=== PATIENT | female | born 1960 | race Caucasian/White ===

== ENCOUNTER → 2018-03-26 09:38 | Outpatient (CLI) | payer OTHER, SELFPAY ==
--- NOTE | 2018-03-26 | DI.MRI.S_ITS ---
PROCEDURE: MR LUMBAR SPINE WO CON INDICATIONS: Low back pain post fall 09-24-17 TECHNIQUE: Noncontrast sagittal T1 spin echo and T2 fast echo, sagittal STIR, axial T1 and T2 fast spin echo through the lumbar spine. In cases with scoliosis, additional coronal T2 fast spin echo may be performed. COMPARISON: None. FINDINGS: Image quality: Excellent. Alignment and Curvature: There is mild L1-L2 retrolisthesis and mild L5-S1 anterolisthesis secondary to facet hypertrophy. Bone Marrow: Reactive endplate change is noted adjacent to the L1-L2, L2-L3, L3-L4, L4-L5 and L5-S1 discs. Chronic L1 compression fracture is noted which results in approximately 50% loss of normal anterior vertebral body height. No retropulsed fragments or kyphosis associated with the L1 compression fracture. No acute vertebral body compression fractures. Spinal Cord: Conus medullaris terminates at the L1-2 disc level. Visualized cord demonstrates normal signal and size. Paraspinous Soft Tissues: No paravertebral masses. L1-L2: Loss of disc signal and mild loss of disc height. Mild, diffuse disc bulge. Mild bilateral facet hypertrophy. Mild central canal secondary to disc disease facet hypertrophy. Mild right and moderate left neural foraminal narrowing secondary to disc and facet disease. No neural impingement. L2-L3: Loss of disc signal. Minimal, diffuse disc bulge and mild bilateral facet hypertrophy. No central stenosis. Mild left neural foraminal narrowing secondary to disc and facet disease. No neural impingement. L3-L4: Loss of disc signal. Mild, diffuse disc bulge. Moderate facet and moderate ligamentum flavum hypertrophy. Moderate narrowing of the central canal secondary to disc disease and posterior element hypertrophy. Mild bilateral neural foraminal narrowing secondary to disc and facet disease. No neural impingement. L4-L5: Loss of disc signal. Mild, diffuse disc bulge. Moderate bilateral facet hypertrophy. Mild ligamentum flavum hypertrophy. Mild to moderate narrowing of the central canal secondary to disc disease and posterior element hypertrophy. Mild bilateral neural foraminal narrowing secondary to disc and facet disease L5-S1: Loss of disc signal and height. Minimal, diffuse disc bulge with severe bilateral facet hypertrophy. No central stenosis. Moderate to severe right and mild left neural foraminal narrowing secondary to disc and facet disease with slight flattening deformity exiting right L5 nerve root. IMPRESSION: 1. Grade I 1-L2 and L5-S1 degenerative spondylolisthesis. 2. Multilevel degenerative disc disease. 3. Multilevel facet arthropathy. 4. Moderate L3-L4 is central canal narrowing. Mild to moderate L4-L5 central canal narrowing. Mild L1-L2 Central canal narrowing. 5. Moderate to severe right and mild left L5-S1 neural foraminal narrowing. Mild right and moderate left L1-L2 neural foraminal narrowing. Mild bilateral L3-L4 and L4-L5 neural foraminal narrowing. Mild left L2-L3 neural foraminal narrowing. Dictated by: Brandie Wetzel MD, PhD on 03/26/2018 at 11:39 Approved by: Brandie Wetzel MD, PhD on 03/26/2018 at 11:47
== END ==
PROVIDERS: PCP Family Medicine; Visit Provider Orthopaedic Surgery Orthopaedic Surgery of the Spine
DX: M54.5 Low back pain (principal); M43.16 Spondylolisthesis, lumbar region; M51.36 Other intervertebral disc degeneration, lumbar region; M47.816 Spondylosis without myelopathy or radiculopathy, lumbar region; M48.061 Spinal stenosis, lumbar region without neurogenic claudication
CPT/HCPCS: 72148

== ENCOUNTER → 2018-10-06 10:08 | Outpatient (CLI) | payer OTHER, SELFPAY ==
[2018-10-06 11:22] LABS: Add Manual Diff / Slide Review NO; Basophils Percent Auto 0.4 % (0-2); Hematocrit 42.4 % (36-46); Mean Corpuscular HGB Conc 32.9 % (30-36); Mean Corpuscular Hemoglobin 28.8 PG (26-34); Mean Corpuscular Volume 87.5 fL (80-100); Monocytes Percent Auto 6.8 % (3-14); Neutrophils Absolute Auto 7000 /uL (1500-7000); Neutrophils Percent Auto 67.8 % (50-75); Platelet Count 277 X10^3/uL (150-400); Red Blood Cell Count 4.84 X10^6/uL (4.0-5.2); Red Cell Distribution Width 14.4 % (11.6-14.8); White Blood Cell Count 10.4 X10^3/uL (4.5-11.0)
[2018-10-06 11:40] LABS: Blood Urea Nitrogen 18 mg/dL (7-17); Calcium 9.7 mg/dL (8.4-10.2); Carbon Dioxide 26 mmol/L (22-32); Chloride 103 mmol/L (98-107); Estimated Glomerular Filt Rate > 60.0 mL/min (>60); Glucose 93 mg/dL (80-110); HEMOLYSIS < 15 (0-50); Potassium 4.2 mmol/L (3.4-5.1); Sodium 139 mmol/L (137-145)
== END ==
PROVIDERS: Family Provider Family Medicine; PCP Family Medicine; Visit Provider Orthopaedic Surgery Orthopaedic Surgery of the Spine
DX: Z01.818 Encounter for other preprocedural examination (principal)
CPT/HCPCS: 36415; 80048; 85025; 93005

== ENCOUNTER 2018-10-13 12:12 | Inpatient (IN) | payer OTHER, SELFPAY ==
[2018-10-09 13:37] VITALS: BMI 47.7
[2018-10-13] VITALS (19 sets, daily range): BP systolic 118–150; BP diastolic 53–94; PULSE 68–100; RESP 10–20; TEMP 36.2–37.4; O2SAT 92–100; BMI 47.7
--- NOTE | 2018-10-13 | DI.RAD.S_ITS ---
PROCEDURE: XR LUMBAR SPINE 2-3V INDICATIONS: L4-5 TLIF TECHNIQUE: 2 intraoperative fluoroscopic views of the lumbar spine were acquired. COMPARISON: [facility] MILENA Telles, LUMBAR SPINE INTERIAMINAR, 07/30/2018, 8:47. FINDINGS: Intraoperative fluoroscopic images of lumbar spine shows transpedicular fusion and laminectomy at L4-5 level. Intervertebral spacer placement at L4-5 level is also seen. IMPRESSION: Fluoroscopic guidance was provided intraoperatively for transpedicular fusion at L4-5 level. Dictated by: Daniel Eaton M.D. on 10/13/2018 at 17:09 Approved by: Daniel Eaton M.D. on 10/13/2018 at 17:10
[2018-10-13] MEDS: LACTATED RINGERS 1,000 ML 42 ML IV ×2 (13:09→16:20)
--- NOTE | 2018-10-13 14:01 | PM.PREOP ---
Pre-operative Note Interval Note History & Physical reviewed/Exam performed by Physician: Yes Changes to H&P: No
[2018-10-13] MEDS: CEFAZOLIN 2 GM/100 ML FROZ.PIGGY IV ×2 (14:35→21:18)
--- NOTE | 2018-10-13 15:18 | SUR.OPER ---
Prone on spine table, head in foam head support, padded chest and pelvic supports, gel pad at knees, lower legs supported by pillows; nipples, genitalia and toes free of pressure, arms secured on foam padded arm boards at <90 degrees abduction. Tape over blanket at thigh secured to table.
[2018-10-13] MEDS: BUPIVACAINE 0.25% W/ EPI VIAL 50 ML INJ (15:26)
[2018-10-13] MEDS: BUPIVACAINE LIPOSOME 266 MG/20 ML VIAL INJ (15:27)
--- NOTE | 2018-10-13 17:11 | PM.OP.1 ---
Operative Date/Time/Diagnoses Date of procedure: 10/13/18 Time of procedure: 15:11 Pre-op diagnosis: 1. L5-S1 spondylolisthesis 2. L5-S1 spinal stenosis. 3. L5-S1 spondylosis with radiculopathy Post-op diagnosis: same Procedure & Clinicians Procedure: 1. L5-S1 Postero-lateral and posterior interbody fusion 2. L5-S1 interbody cage placement. 3. L5-S1 decompressive laminectomy with bilateral facetecomies 4. L5-S1 Posterior non-segmental instrumentation 5. [place] of bone marrow from iliac crest 6. Utilization of microsurgical technique and operating microscope Same procedure as scheduled: Yes Indications: Patient has been having chronic back pain and worsening lumbar radiculopathy. Patient failed multiple conservative management with worsening pain weakness and numbness in her lower extremity. Patient has been having difficulty performing activity of daily living. After discussing risks benefits of treatment options, patient elected proceed with surgery. Surgeon: Jasmyn Reyes Mud Analysis Well Logging Captain: Nadine Chaudhry'Brien Click Yes if Unassisted: No Anesthesia Type: General Operative Notes Closure Type: primary Specimen(s): none sent Implants & Drains: Globus revolve screws, Rise cage Estimated Blood Loss (mL): 50 Blood products transfused: none Procedure in detail: Patient was seen in the preoperative area. Risks and benefits of the surgery was discussed with the patient. Informed consent was obtained from the patient and placed in the chart. Surgical site was marked. Patient was taken to the operative room. General anesthesia was administered. Prophylactic antibiotic was given to the patient less than 30 min before the incision was made. Patient was placed into a prone position on the [place] table. Patient's back was then prepped and draped in the sterile fashion. Time-out was performed at this time. Using AP and lateral C-arm imaging the interval between L5-S1 was identified and marked on patient's back. A 2 inch incision 2 in from midline was made on the left side first. The fascia was incised in line with skin incision. Globus MARS retractors was placed inside the incision and docked onto the L5 lamina. Using microsurgical technique and operating microscope, a L5 laminectomy and L5-S1 facetectomy was performed using a Kerrison rongeur. The disc space at L5-S1 was identified. And a total diskectomy was performed at L5-S1 level. The endplates were decorticated using a rasp and shaver. The total diskectomy and decortication was performed at L5-S1 level in order to to accomplish a L5-S1 interbody fusion. The local bone from the laminectomy and facetectomy was saved for local bone grafting. After the total diskectomy and decortication was completed, Globus viacell bone graft material was combined with local bone that was harvested earlier. At this time, a separate skin is incision was made over the iliac crest. A Jamshidi needle was inserted into the iliac crest through a separate skin incision. 5 cc of bone marrow aspiration was obtained through the separate skin incision using a Jamshidi needle from the iliac crest. The bone marrow aspiration was combined with local bone and the via cell bone grafting material. The bone grafting material was placed into the L5-S1 interbody space along with a expandable cage. The cage was expanded to its maximum height using the torque limiting screwdriver. At this time a mirror image incision was made on the right side. The fascia was incised in line with the skin incision. Globus MARS retractor was inserted and docked onto the L5-S1 posterolateral gutter. Using the power drill, posterior-lateral decortication was performed at L5-S1 level until bleeding cortical bone was identified. The remaining bone grafting material was placed into the L5-S1 posterior lateral gutter he order to accomplish posterolateral fusion at the L5-S1 level. Using the double C-arm technique, pedicle screws were placed into the L5-S1 pedicles bilaterally. This was done by placing the Jamshidi needle into the pedicles, then placing the guidewires over the Jamshidi needle, and finally placing the cannulated screws over the guidewires bilaterally. After the pedicle screws were placed, 2 titanium rods was locked into the heads of the pedicle screws using locking caps and torque limiting screwdriver. After all the hardware was placed, and confirmed with AP and lateral C-arm imaging, the wound was then irrigated with sterile normal saline and packed with Ray-Wei gauze for 3 min to accomplish hemostasis. After the gauze was removed the deep fascia was closed with #1 Vicryl suture. The subcutaneous layer was closed with 2-0 Vicryl. The skin was closed with skin zeferino. Patient tolerated the procedure well. There were no complications. Complications: none Condition: stable Disposition: PACU Plan for aftercare: Admit to inpatient hospital
--- NOTE | 2018-10-13 17:14 | P.OP_ITS ---
Operative Date/Time/Diagnoses Date of procedure: 10/13/18 Time of procedure: 15:11 Pre-op diagnosis: 1. L5-S1 spondylolisthesis 2. L5-S1 spinal stenosis. 3. L5-S1 spondylosis with radiculopathy Post-op diagnosis: same Procedure & Clinicians Procedure: 1. L5-S1 Postero-lateral and posterior interbody fusion 2. L5-S1 interbody cage placement. 3. L5-S1 decompressive laminectomy with bilateral facetecomies 4. L5-S1 Posterior non-segmental instrumentation 5. [place] of bone marrow from iliac crest 6. Utilization of microsurgical technique and operating microscope Same procedure as scheduled: Yes Indications: Patient has been having chronic back pain and worsening lumbar radiculopathy. Patient failed multiple conservative management with worsening pain weakness and numbness in her lower extremity. Patient has been having difficulty performing activity of daily living. After discussing risks benefits of treatment options, patient elected proceed with surgery. Surgeon: Jasmyn Reyes Wood Calker: Nadine Chaudhry'Brien Click Yes if Unassisted: No Anesthesia Type: General Operative Notes Closure Type: primary Specimen(s): none sent Implants & Drains: Globus revolve screws, Rise cage Estimated Blood Loss (mL): 50 Blood products transfused: none Procedure in detail: Patient was seen in the preoperative area. Risks and benefits of the surgery was discussed with the patient. Informed consent was obtained from the patient and placed in the chart. Surgical site was marked. Patient was taken to the operative room. General anesthesia was administered. Prophylactic antibiotic was given to the patient less than 30 min before the incision was made. Patient was placed into a prone position on the [place] table. Patient's back was then prepped and draped in the sterile fashion. Time- out was performed at this time. Using AP and lateral C-arm imaging the interval between L5-S1 was identified and marked on patient's back. A 2 inch incision 2 in from midline was made on the left side first. The fascia was incised in line with skin incision. Globus MARS retractors was placed inside the incision and docked onto the L5 lamina. Using microsurgical technique and operating microscope, a L5 laminectomy and L5- S1 facetectomy was performed using a Kerrison rongeur. The disc space at L5-S1 was identified. And a total diskectomy was performed at L5-S1 level. The endplates were decorticated using a rasp and shaver. The total diskectomy and decortication was performed at L5-S1 level in order to to accomplish a L5-S1 interbody fusion. The local bone from the laminectomy and facetectomy was saved for local bone grafting. After the total diskectomy and decortication was completed, Globus viacell bone graft material was combined with local bone that was harvested earlier. At this time, a separate skin is incision was made over the iliac crest. A Jamshidi needle was inserted into the iliac crest through a separate skin incision. 5 cc of bone marrow aspiration was obtained through the separate skin incision using a Jamshidi needle from the iliac crest. The bone marrow aspiration was combined with local bone and the via cell bone grafting material. The bone grafting material was placed into the L5- S1 interbody space along with a expandable cage. The cage was expanded to its maximum height using the torque limiting screwdriver. At this time a mirror image incision was made on the right side. The fascia was incised in line with the skin incision. Globus MARS retractor was inserted and docked onto the L5-S1 posterolateral gutter. Using the power drill, posterior- lateral decortication was performed at L5-S1 level until bleeding cortical bone was identified. The remaining bone grafting material was placed into the L5-S1 posterior lateral gutter he order to accomplish posterolateral fusion at the L5- S1 level. Using the double C-arm technique, pedicle screws were placed into the L5-S1 pedicles bilaterally. This was done by placing the Jamshidi needle into the pedicles, then placing the guidewires over the Jamshidi needle, and finally placing the cannulated screws over the guidewires bilaterally. After the pedicle screws were placed, 2 titanium rods was locked into the heads of the pedicle screws using locking caps and torque limiting screwdriver. After all the hardware was placed, and confirmed with AP and lateral C-arm imaging, the wound was then irrigated with sterile normal saline and packed with Ray-Wei gauze for 3 min to accomplish hemostasis. After the gauze was removed the deep fascia was closed with #1 Vicryl suture. The subcutaneous layer was closed with 2-0 Vicryl. The skin was closed with skin zeferino. Patient tolerated the procedure well. There were no complications. Complications: none Condition: stable Disposition: PACU Plan for aftercare: Admit to inpatient hospital
--- NOTE | 2018-10-13 17:33 | SUR.PHASEI ---
Dazed look and moaning and finally able to voice some words.
[2018-10-13] MEDS: HYDROMORPHONE 2 MG INJ 0.5 MG IV ×4 (17:36→18:05)
--- NOTE | 2018-10-13 18:26 | SUR.PHASEI ---
Prolonged PACU stay ensuring respiratory safety with analgesia given. Increasing comfort voiced altho still with pain. Undertanding of need to space meds out and monitor respiratory status voiced back to me. VSS. No need for CPAP use.
--- NOTE | 2018-10-13 18:32 | SUR.PHASEI ---
Cleulalio montano and CPAP to ICU with patient.
[2018-10-13] MEDS: SODIUM CHLORIDE 0.9% 1,000 ML 100 ML IV (19:29)
--- NOTE | 2018-10-13 19:36 | PC.NURSE ---
Addendum entered by Lena Mcclure R.N. 10/13/18 22:33: 2200 - Pt with intermittent desat to the 70's while on home c-pap. RT to add 2L bleed in. Pt Sats 94% monitor. Original Note: Addendum entered by Lena Mcclure R.N. 10/13/18 21:04: 2030 - Pt up to the bedside commode. SBA with FWW. Reinforced mobility precautions. Assist back to bed position for comfort. Home c-pap at bedside. Pt sats decrease to the 70's rapidly after falling asleep. Encouraged c-pap use. Pt declines pain rx at this time. Reports pain 3 of 10. Monitor. Original Note: 1845 -Pt to room from PACU. Awake and alert. Drsg to back CDI. Pain 3 of 10. Denies numbness and tingling. Positioned for comfort. Educated to mobility, safety, call light and I.S. use. Call light in reach. Snack provided.
[2018-10-13] MEDS: SENNOSIDES 8.6 MG TABLET 17.2 MG PO (21:16)
[2018-10-13] MEDS: DOCUSATE 100 MG CAPSULE PO (21:17)
[2018-10-13] MEDS: SIMVASTATIN 20 MG TABLET PO (21:17)
[2018-10-13] MEDS: PROPRANOLOL 10 MG TABLET 20 MG PO (21:17)
[2018-10-13] MEDS: ACETAMINOPHEN 325 MG TABLET 650 MG PO (21:19)
[2018-10-14 04:31] VITALS: BP 140/78; PULSE 76; RESP 18; TEMP 36.8; O2SAT 98
[2018-10-14] MEDS: OXYCODONE IR 5 MG TABLET 10 MG PO ×2 (04:33→09:44)
[2018-10-14 05:18] LABS: Hematocrit 39.6 % (36-46); Hemoglobin 13.1 g/dL (12.0-16.0)
[2018-10-14] MEDS: CEFAZOLIN 2 GM/100 ML FROZ.PIGGY IV (05:50)
[2018-10-14] MEDS: LEVOTHYROXINE 125 MCG TABLET PO (05:50)
[2018-10-14] MEDS: PANTOPRAZOLE 40 MG TABLET PO (05:50)
[2018-10-14] MEDS: SODIUM CHLORIDE 0.9% 1,000 ML 100 ML IV (05:51)
[2018-10-14 07:29] VITALS: BP 126/60; PULSE 70; RESP 18; TEMP 36.9; O2SAT 97
[2018-10-14 07:45] VITALS: O2SAT 97
[2018-10-14] MEDS: ISOSORBIDE MONONITRATE ER 60 MG PO (07:53)
[2018-10-14] MEDS: FLUoxetine 20 MG CAPSULE 80 MG PO (07:53)
[2018-10-14] MEDS: PROPRANOLOL 10 MG TABLET 20 MG PO (07:53)
[2018-10-14] MEDS: DOCUSATE 100 MG CAPSULE PO (07:53)
[2018-10-14] MEDS: FUROSEMIDE 20 MG TABLET 40 MG PO (07:53)
[2018-10-14] MEDS: ACETAMINOPHEN 325 MG TABLET 650 MG PO (07:54)
--- NOTE | 2018-10-14 10:22 | OT.IP.EVAL ---
Current Diagnoses Spondylolisthesis, lumbosacral region (10/13/18) Other spondylosis with radiculopathy, lumbar region (10/13/18) Spinal stenosis, lumbar region without neurogenic claudication (10/13/18) Surgery Performed Operation Date: 10/13/18 14:15 Actual Procedures p L5-S1 TLIF w/Posterior Instru. - Jasmyn Reyes MD Past Medical History (Last Updated 10/09/18 @ 14:42 by Consuelo Lynch RN) Arthritis (Acute) Chronic neck and back pain (Acute) Depression (Acute) Difficulty swallowing (Acute) Easy bruisability (Acute) Elbow fracture, right (Acute) GERD (gastroesophageal reflux disease) (Acute) Generalized edema (Acute) HTN (hypertension) (Acute) History of hysterectomy (Acute) Hyperlipidemia (Acute) Numbness and tingling (Acute) Pinched nerve (Acute) Severe anxiety (Acute) Shortness of breath (Acute) Sleep apnea (Acute) Surgical History (Last Updated 10/09/18 @ 14:42 by Consuelo Lynch RN) History of arthroplasty of right knee (Acute) History of bilateral tubal ligation (Acute) Hx of cholecystectomy (Acute) Hx of hernia repair (Acute) Hx of partial thyroidectomy (Acute) Hx of tonsillectomy (Acute) S/P foot surgery, right (Acute) Occupational Therapy Inpatient Evaluation/Re-Eval M1 PT/OT-IP Prior Functional Status Start: 10/14/18 09:36 Freq: NEEDED Status: Active Protocol: Document 10/14/18 11:31 RS (Rec: 10/14/18 11:54 RS [id number]) Medical Review Prior Functional Status Medical History Reviewed Yes Communication no known deficits Mobility and Gait prior to injury pt didn't feel limited in gait but since the injury pt has only been able to walk about 20ft at a time due to pain/weakness. No AD needed. Denies falls (other than the fall at work that caused this injury). 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 3 Home Equipment Front Wheel Walker Straight Cane Employment Status [employer] Lead Employed Additional Social History Comment hopes to return to work once back is healed M2 OT-IP Current Condition Start: 10/14/18 11:34 Freq: Status: Active Protocol: Document 10/14/18 10:22 PJM (Rec: 10/14/18 11:55 PJM [id number]) Occupational Therapy Current Condition Current Condition Evaluation Date 10/14/18 Treatment Diagnosis decreased self care, mobility s/p L5-S1 TLIF Diagnosis Onset Date 10/13/18 Post Operative Precautions Lumbar Precautions Log Roll No Twisting Limit Bending Lifting Restriction of 10 lbs Gait Belt above Incisional Area M3 OT- IP Subjective and Pain Start: 10/14/18 11:34 Freq: Status: Active Protocol: Document 10/14/18 10:22 PJM (Rec: 10/14/18 11:55 PJM [id number]) OT- Subjective Occupational Therapy Visit Type Type Initial Evaluation Visit Start Time 09:40 Visit Stop Time 10:22 Total Visit Minutes 42 Notes Pt's daughter here at end of session and will assist pt with ordering medical geneticist and toilet paper aid on line. Occupational Therapy Visit Comments Patient/Caregiver Goals I want to get back to work. I like my job. OT Pain Assessment Pain When Pain Assessed After Treatment Pain Present Pain Present Pain Reported Location Back Intensity 3 Scale Used Numeric (1 - 10) Description Aching Acute Pain Behaviors Guarding Management Techniques Distraction Re-positioning Timing of Activity with Medications M4 OT- IP ADL's Start: 10/14/18 11:34 Freq: Status: Active Protocol: Document 10/14/18 10:22 PJM (Rec: 10/14/18 11:55 PJM [id number]) OT [id number] General Evaluation Self-Feeding Ability Independent OT ADL-Grooming General Evaluation Grooming Ability Independent Areas Needing Assistance Combing/Brushing Hair Face Washing Comments OT Grooming Comments standing at sink after education re: body mechanics OT ADL-Oral Care General Eval Oral Care Ability Independent Areas of Assistance Brushing Teeth Devices Oral Care Devices Toothbrush Comments Oral Care Comments standing at sink after education re: body mechanics OT ADL-Dressing General Eval Upper Body Dressing Ability Independent Lower Body Dressing Ability Independent Areas Needing Assistance Pants/Shorts Socks Assistive Devices Dressing Assistive Devices Long Handled Shoe Horn Wildfire Prevention Specialist Sock Aid Comments OT Dressing Comments Pt plans to order medical geneticist on line. She was able to don underwear and doff socks with it after education. Pt declines sock aid; prefers to have family assist with socks until she is able . Pt has long shoe horn and wears slip on shoes. OT ADL-Toileting General Evaluation Toileting Ability Independent Areas Needing Assistance Manage Clothing Perform Perineal Hygiene Devices Toileting Assistive Devices Toilet Paper Aid Comments OT Toileting Comments Provided education re: body mechanics and options for toilet paper aid. Daughter will order this on line for pt . Pt indep with stephenie care after urination without a device, but will need it for stephenie care after bowel movement . OT ADL-Bathing Bathing Type Bathing Type Shower General Evaluation Bathing Ability Standby Assistance Devices Bathing Equipment Long Handled Sponge or Cad Intern Held Shower Sprayer Comments OT Bathing Comments Pt plans to supervisor burling and joining tub shower combo with SBA from or daughter. She has long bath sponge. Provided education re: body mechanics. M5 OT- IP IADL's Start: 10/14/18 11:34 Freq: Status: Active Protocol: Document 10/14/18 10:22 PJM (Rec: 10/14/18 11:55 [facility] [id number]) OT-Instrumental Activities of Daily Living Deficits IADL Deficits Identified Deficits Home Safety Awareness Awareness of Need for Assistance at Home Good Awareness Ability to Problem Solve Emergency Able to Problem Solve Situations Medication Management Medication Management No Deficits Identified Money Management Money Management No Deficits Identified Meal Preparation Meal Preparation Caregiver Provides Assist Meal Preparation Comments family to assist PRN Nurse General Duty Nurse General Duty Caregiver Provides Assist Nurse General Duty Comments family to assist PRN Driving Driving Caregiver Provides Assist Driving Comments family to assist until pt able M6 OT- IP Functional Cognition Start: 10/14/18 11:34 Freq: Status: Active Protocol: Document 10/14/18 10:22 PJM (Rec: 10/14/18 11:55 [facility] [id number]) Cognitive Factors Limiting Selfcare Function Cognitive Ability Level of Alertness Alert Patient Orientation Name Age Birthday Month Date Year Day of Week Place Situation Attention Span Ability Capable of Focused Attention Capable of Sustained Attention Ability to Follow Commands Able to Follow One Step Commands Able to Follow Multi-Step Commands Memory Description No Deficits Noted Safety Awareness No Deficits Noted Executive Function Ability No Deficits Noted Cognitive Comments Cognitive Assessment Comments Cognition appears WNL OT- Vision and Hearing OT- Hearing Assessment OT- Hearing Assessment WFL OT- Vision Assessment Visual Acuity WFL Glasses All The Time Vision Assessment Comments Pt denies any recent vision changes M7 OT- IP Mobility and Balance Start: 10/14/18 11:34 Freq: Status: Active Protocol: Document 10/14/18 10:22 PJM (Rec: 10/14/18 11:55 PJ [id number]) OT-Transfer Assessment Sit to and From Stand Sit to and from Stand Standby Assistance Transfers Transfer Ability Standby Assistance Technique Transfer Destination Car Chair Toilet Transfer Technique Stand Step Pivot Devices Transfer Assistive Devices Gait Belt Front Wheeled Walker Comments Mobility Comments Provided education re: body mechanics, sitting posture and car transfers. OT- Gait Assessment Gait Gait Assistance Required: Standby Assistance Distance (Feet) 40 Assistive Devices Assistive Device Gait Belt Front Wheeled Walker Comments Gait Ability Comments Pt walking 4-5 feet in room without a device and no loss of balance. OT- Balance Assessment Sitting Balance and Reactions Static Sitting Balance Ability Good Dynamic Sitting Balance Ability Good Standing Balance and Reactions Static Standing Balance Ability Good Dynamic Standing Balance Ability Good Comments Other Balance Tests/Deviations/Treatment during lower body clothing : management, stephenie care and grooming at sink M8 OT- IP Objective Assessments Start: 10/14/18 11:34 Freq: Status: Active Protocol: Document 10/14/18 10:22 PJM (Rec: 10/14/18 11:55 PJ [id number]) OT Gross Range of Motion Upper Extremity Range of Motion Assessment Within Functional Limits OT Strength Upper Extremity Strength Assessment Within Functional Limits Hand Classifying Machine Operator Strength Hand Dominance Right OT- Coordination Assessment Upper Extremity Finger to Nose Test Within Functional Limits OT-Muscle Tone Assessment Muscle Tone WNL Yes OT Sensation Assessment Comments Summary Comments BUE WNL Edema Edema Absent M9 OT- IP Assessment and Plan Start: 10/14/18 11:34 Freq: Status: Active Protocol: Document 10/14/18 10:22 PJM (Rec: 10/14/18 11:55 PJ [id number]) OT Summary Assessment and Plan Potential Rehabilitation Potential Excellent Analytic Complexity at Evaluation Low Summary OT Impairments Pain Progress Towards Goals Safe For Discharge Assessment Summary Low complexity OT assessment and all OT education completed today re: lumbar spine precautions, body mechanics, sitting posture, adapted ADL techniques and equipment options. Pt moving very well in room with FWW and walking 4 -5 feet without it in small spaces. P.T. evaluation still pending and they will educate pt re: log rolling and further assess mobility. Pain appears well controlled with pt's primary deficit being mildly decreased activity tolerance on day 1 after single level lumbar fusion. Pt safe to d/c home from OT standpoint. Her family can provide 24 hr assist PRN. No further OT services needed. Frequency of Treatment Frequency Of Treatment Discharge Discharge Recommendations OT Discharge Recommendations Home with Assistance
--- NOTE | 2018-10-14 11:09 | CM.DANOTE ---
Discharge Planning/Care Management CM Discharge Assessment Start: 10/14/18 11:05 Freq: Status: Active Protocol: Document 10/14/18 11:05 (Rec: 10/14/18 11:09 [id number]) Discharge Planning Assessment Assigned Client Partner RYAN Castillo Advance Directives? No History Provided By Patient Family Member Medical Record Has Patient been admitted in last 30 No days? Prior Living Arrangements House Household Members spouse family children Type of transporation used prior to Drives own vehicle admit Independent with ADL's Yes Is patient alert and oriented? Yes Needs Assistance With Grooming Comment Putting socks on. Caregiver for Another No Barriers to Discharge No Discharge Plan Home Transportation Arrangement Spouse/Chuck to provide transportation. Referrals Initiated None needed Comment Reviewed EMR: patient payer is L[employer]I. Met with patient and daughter/ Cherie: Patient is independent at baseline without the use of DME. Patient does have 4WW/2WW and cane available for use at home if needed. Patient is hopeful to discharge home today. Patient does not anticipate any discharge needs. Patient is pending PT/OT eval. Whiteboard Updated in Patient Room with Yes name and ext. # of Client Partner Please Provide Date Initial DC 10/14/18 Assessment Was Performed Pre-Anesthesia Assessment Start: 10/09/18 13:37 Freq: Status: Complete Protocol: Document 10/09/18 13:37 CAB (Rec: 10/09/18 14:59 CAB [id number]) Pre-Anesthesia Assessment Patient Also Known As (ZOEY) Myra Patient Information Reviewed Via Phone Assessment Assessment Completed With Patient Lab Results BMP/CMP CBC EKG Comment Labs/EKG @ 10/06/18 Primary Care Provider Yi Zambrano Seen Specialist in Last 12 Months Yes Specialist Seen Orthopedist Primary Language Polish Ceo & Board Director Required No Height 156.21 cm Weight 116.573 kg Body Mass Index (BMI) 47.7 Hearing Ability Normal Visual Assist Glasses Dentition Type Teeth, Natural Present Teeth, Missing Barriers to Learning None Hx Anesthesia Reactions No Hx Family Anesthesia Reaction No Hx Malignant Hyperthermia No Hx Blood Transfusions No Anesthesia Review Requested No Well Logging Mud Analysis Captain No alcohol intake current alcohol intake frequency holidays/special occasions only Smoking Status Never smoker Substance Use Type does not use Pain Present Pain Reported Musculoskeletal Symptoms Abnormal Gait Back Pain Difficulty Walking Joint Pain Muscle Spasms Neck Pain Numbness Radiating Pain into Limb History of Falling (Recent or History of Yes ) Patient is completely paralyzed or No completely immobile Mental Status Oriented to own ability Is patient on oxygen? No Does patient have REA/SOB Yes: Intermittently, last episode 6 months ago Hx Sleep Apnea Yes: Pt states machine malfunctioning CPAP/BIPAP use prescribed not used Currently Taking a Beta Cristino Yes: Propranolol for anxiety Can You Climb a Flight of Stairs Without No SOB Hx Chest Pain Yes: Last episode approx 2 years ago, work-up neg per pt Hx SOB Yes Hx Syncope or Dizziness No Anti-Coagulant Therapy No Has a Theology Teacher No Cardiac Testing No Hx Pacemaker/ICD No Pacemaker Rep Required? No Cardiac Clearance Received Not Applicable Diet Type At Home Regular dysphagia Yes: Occasional trouble with swallowing Bladder Pattern Nocturia Urgency Urinary Catheter Present No Hx Urinary Self Catheterization No Diabetes No Patient No Lactating No Hx Drug Resistant Organism No Presence of External or Internal Medical No Devices Have you traveled outside the [facility] in the last 30 days? Marital Status Lives With spouse family children Prior Living Arrangements House Number of Floors (Floors) One Floor Number of Stairs To Enter/Railing? 1 step, no railing Support System Child/Children Spouse Does the Patient Have Assistance After Yes Surgery Patient Discharge Plan Description Return Home Comment Pt advised 2-3 day length of stay per surgeon's office Feels Safe in Current Environment Yes Been Physically Hurt or Threatened By a No Person in Current Environment Do you have thoughts of harming yourself None or others? Are you currently considering suicide? No Do you have a plan to hurt yourself or No Plan others? Do You Have Any Spiritual Beliefs That No May Affect Your HC Choices? Do You Have Any Cultural Practices That No May Affect Your HC Choices? Spiritual Referral None Who Can We Speak to About Patient's Care Family, friends Identifying Code for Release of Patient Declines to issue Information Health Care Proxy/Next of Kin Chuck () Health Care Proxy or [phone] Emergency Contact Name Chuck () Emergency Contact or [phone] Advance Directives? 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
--- NOTE | 2018-10-14 11:09 | PM.DS.1 ---
History of Present Illness Date Patient Seen: 10/14/18 Time Patient Seen: 07:38 Chief complaint: lumbar [id number] Narrative: Patient seen bedside s/p L5-S1 TLIF with Dr. Reyes. Patient is POD #1. She is doing well, her pain is well controlled, and she has been up and walking. She denies any calf pain, chest pain, or SOB. She would like to go home today. Discharge Providers Date of admission: 10/13/18 12:12 Primary care physician: Yi Zambrano MD Consults: 10/09/18 14:59 Consult to Respiratory Therapy Evaluate & Treat Comment: CELSO, currently no CPAP, getting water in my nose Physician Instructions: Evaluate and treat 10/13/18 13:09 Consult to Respiratory Therapy Evaluate & Treat Comment: Physician Instructions: Evaluate and treat 10/13/18 18:46 Consult to Occupational Therapy Evaluate & Treat Comment: Physician Instructions: Evaluate and treat Consult to Physical Therapy Evaluate & Treat Comment: Physician Instructions: Evaluate and Treat Discharge provider: Guadalupe Bach PA-C Discharge Date: 10/14/18 Summary Discharge Diagnosis: 1. L5-S1 spondylolisthesis 2. L5-S1 spinal stenosis. 3. L5-S1 spondylosis with radiculopathy Hospital Course: Patient was admitted to the hospital s/p L5-S1 TLIF with Dr. Reyes on 10/13/18. Patient tolerated the procedure well with no major complications. She was transferred to the acute care floor and placed on the standard spine post-op protocol. She was seen by PT and recommended for discharge home. Patient was stable and ready for d/c on 10/14/18. Status at Discharge Cognitive/behavioral status at discharge: Alert & oriented x3 Functional status at discharge: uses cane/walker Overall status at discharge: patient is progressing back to baseline Time Spent with Patient Less than 30 minutes Exam Vital Signs (past 8 hours): - 10/14/18 04:31 10/14/18 07:29 10/14/18 07:45 Temperature 98.2 F 98.5 F Pulse Rate 76 70 Respiratory Rate 18 18 Blood Pressure 140/78 126/60 Pulse Oximetry 98 97 97 Oxygen Delivery Method Room Air Oxygen Flow Rate 0 Narrative Exam Narrative: WDWN NAD A&Ox3. Dressing on lumbar spine is CDI, no signs of erythema or drainage. NVI in BLE, calves are soft and compressible, no focal deficits noted. Objective Labs Result Diagrams: 10/14/18 04:40 Labs: Laboratory Results - last 24 hr 10/13/18 10/14/18 18:45 04:40 Hgb 13.1 Hct 39.6 Nasal Screen MRSA (PCR) Negative for mrsa Discharge Plan Discharge Plan Patient Disposition: Home Discharge comment: d/c if cleared by PT Discharge Med Rec/Prescriptions Prescriptions: New acetaminophen 325 mg Tablet 650 mg PO Q6HR PRN (Reason: Pain, Mild (1-3)) Qty: 0 RF: 0 docusate sodium 100 mg Capsule 100 mg PO BID Qty: 0 RF: 0 hydroxyzine pamoate 25 mg Capsule 25 mg PO Q4HR PRN (Reason: Nausea And Vomiting) Qty: 60 RF: 1 oxycodone 5 mg tablet 5 mg PO Q4-6H PRN (Reason: pain) Qty: 40 RF: 0 Continue fluoxetine [Prozac] 40 MG capsule 80 mg PO QDAY Qty: 0 RF: 0 furosemide 20 MG tablet 40 mg PO QAM Qty: 0 RF: 0 esomeprazole magnesium [Nexium] 40 MG capsule,delayed release(DR/EC) 40 mg PO QAM Qty: 0 RF: 0 levothyroxine [Synthroid] 125 mcg Tablet 125 mcg PO DAILY RF: 0 cyclobenzaprine 10 mg Tablet 10 mg PO TID PRN (Reason: Muscle Spasm) RF: 0 isosorbide mononitrate 60 mg Tablet Extended Release 24 Hr 60 mg PO QAM RF: 0 simvastatin 20 mg Tablet 20 mg PO QAM RF: 0 omeprazole 20 mg Capsule,Delayed Release(Dr/Ec) 20 mg PO DAILY RF: 0 propranolol 20 mg Tablet 20 mg PO TID RF: 0 albuterol sulfate [ProAir HFA] 90 mcg/actuation Hfa Aerosol Inhaler 2 puff INHALATION Q4-6H PRN (Reason: sob) RF: 0 fluticasone [Flonase Allergy Relief] 50 mcg/actuation [place],Suspension 2 spray INTRANASAL DAILY RF: 0 fluticasone [Flovent HFA] 110 mcg/actuation Hfa Aerosol Inhaler 2 puff INHALATION QAM RF: 0 Discontinued tramadol 50 mg Tablet 50 mg PO Q12H PRN (Reason: pain) RF: 0 etodolac 400 mg Tablet 400 mg PO BID RF: 0 naproxen sodium [Aleve] 220 mg Capsule 440 mg PO DAILY PRN (Reason: pain) RF: 0 Follow up/Referrals: Yi Zambrano MD [Primary Care Provider] - Jasmyn Reyes MD [Physician] - (Follow up on 10/27/18 at 3pm at the [facility] office with Guadalupe Bach PA-C) Provider Discharge Instructions Diet: Diet as Tolerated Activity: Weightbearing as tolerated, limit bending, lifting greater than 5 lbs, and twisting Cold/Heat Therapy: Apply ice to affected area 20 minutes at a time at least hourly while awake Skin/Wound/Dressing Care Report to your healthcare provider any signs of infection, such as:: chills, fever, night sweats, increased pain, unusual drainage and unusual redness Dressing: Keep dressing clean, dry, and intact. May shower with it in place, no soaking. Visit Report/Discharge Packet Instructions: DI for Transforaminal Lumbar Interbody Fusion Visit Report Forms: Stroke Signs & Symptoms Discharge Data Primary Care Provider: Yi Zambrano Attending Provider: Jasmyn Reyes Admit Date/Time: 10/13/18 12:12 Discharges patient from system. Discharge Date/Time: 10/14/18 12:15 Quality VTE Deep Vein Thrombosis/Pulmonary Embolism Present on Admission: No
[2018-10-14] MEDS: FLUTICASONE 110MCG HFA 120 PUFF INH (11:39)
[2018-10-14 11:40] VITALS: PULSE 78; RESP 14; O2SAT 99
--- NOTE | 2018-10-14 11:55 | PT.IIE ---
Current Diagnoses Spondylolisthesis, lumbosacral region (10/13/18) Other spondylosis with radiculopathy, lumbar region (10/13/18) Spinal stenosis, lumbar region without neurogenic claudication (10/13/18) Surgery Performed Operation Date: 10/13/18 14:15 Actual Procedures p L5-S1 TLIF w/Posterior Instru. - Jasmyn Reyes MD Surgical History (Last Updated 10/09/18 @ 14:42 by Consuelo Lynch RN) History of arthroplasty of right knee (Acute) History of bilateral tubal ligation (Acute) Hx of cholecystectomy (Acute) Hx of hernia repair (Acute) Hx of partial thyroidectomy (Acute) Hx of tonsillectomy (Acute) S/P foot surgery, right (Acute) Medical History (Last Updated 10/09/18 @ 14:42 by Consuelo Lynch RN) Arthritis (Acute) Chronic neck and back pain (Acute) Depression (Acute) Difficulty swallowing (Acute) Easy bruisability (Acute) Elbow fracture, right (Acute) GERD (gastroesophageal reflux disease) (Acute) Generalized edema (Acute) HTN (hypertension) (Acute) History of hysterectomy (Acute) Hyperlipidemia (Acute) Numbness and tingling (Acute) Pinched nerve (Acute) Severe anxiety (Acute) Shortness of breath (Acute) Sleep apnea (Acute) Physical Therapy Inpatient Evaluation/Re-Eval M1 PT/OT-IP Prior Functional Status Start: 10/14/18 09:36 Freq: NEEDED Status: Active Protocol: Document 10/14/18 11:31 RS (Rec: 10/14/18 11:54 RS [id number]) Medical Review Prior Functional Status Medical History Reviewed Yes Communication no known deficits Mobility and Gait prior to injury pt didn't feel limited in gait but since the injury pt has only been able to walk about 20ft at a time due to pain/weakness. No AD needed. Denies falls (other than the fall at work that caused this injury). 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 3 Home Equipment Front Wheel Walker Straight Cane Employment Status [employer] Employed Additional Social History Comment hopes to return to work once back is healed M2 PT-IP Current Condition Start: 10/14/18 09:36 Freq: NEEDED Status: Active Protocol: Document 10/14/18 11:31 RS (Rec: 10/14/18 11:54 RS [id number]) Physical Therapy Current Condition Current Condition Evaluation Date 10/14/18 Treatment Diagnosis L5-S1 lami-fusion Onset Date 10/13/18 Precautions Lumbar Precautions Log Roll No Twisting Limit Bending Lifting Restriction of 10 lbs M3 PT-IP Subjective Start: 10/14/18 09:36 Freq: NEEDED Status: Active Protocol: Document 10/14/18 11:31 RS (Rec: 10/14/18 11:54 RS [id number]) Subjective Physical Therapy Visit Type Type Initial Evaluation Visit Start Time 10:40 Visit Stop Time 11:31 Total Visit Minutes 51 Physical Therapy Visit Comments Patient Comments Pt reports doing well, much less pain than before the surgery. Patient Goals Go home today if cleared. Therapy Pain Assessment Pain When Pain Assessed At Rest Pain Present Pain Present Pain Reported Location Back Intensity 1 Scale Used Numeric (1 - 10) Description Aching Pain Management Techniques Timing of Activity with Medications M4 PT-IP Mobility and Gait Start: 10/14/18 09:36 Freq: NEEDED Status: Active Protocol: Document 10/14/18 11:31 RS (Rec: 10/14/18 11:54 RS [id number]) PT-Bed Mobility Assessment Rolling Type of Rolling Log Rolling Roll to Right Roll to Left Level of Assist Standby Assistance Supine to Sit Supine to Sit Standby Assistance Sit to Supine Sit to Supine Contact Guard Assistance Scooting Scooting to Edge of Bed Independent PT-Transfer Assessment Sit to and From Stand Sit to and from Stand Independent Equipment Transfer Assistive Device None Transfers Transfer Destination Bed Chair Transfer Technique walked Transfer Ability Level of Assist Independent Comments Mobility Comments Pt able to perform all bed mobility and transfers within lumbar precautions. Gait Assessment Gait Gait Assistance Required: Independent Distance (Feet) 40 Assistive Devices Assistive Device None Gait Deviations General Gait Pattern Decreased Stride Length Wide Based Gait Factors Limiting Gait Function Factors Limiting Gait Function Decreased Activity Tolerance Decreased Strength Pain Comments Gait Comments Wide, short steps, slow velocity, with minor exaggerated lateral weight shifting with each contralateral step. But very steady, no LOB. Stair Climbing Assessment Comments Stair Climbing Comments not tested PT-Balance Assessment Sitting Balance and Reactions Static Sitting Balance Ability Normal Dynamic Sitting Balance Ability Normal Standing Balance and Reactions Static Standing Balance Ability Normal Dynamic Standing Balance Ability Good Device Used none M5 PT-IP Objective Assessments Start: 10/14/18 09:36 Freq: NEEDED Status: Active Protocol: Document 10/14/18 11:31 RS (Rec: 10/14/18 11:54 RS [id number]) Orientation Orientation/Cognition Level of Alertness Alert Orientation Name Age Birthday Month Date Year Day of Week Place Situation Language Function Ability No Deficits Noted Safety Awareness Understands Safety Issues Memory Description No Deficits Noted Gross Range of Motion Upper Extremity ROM Assessment Within Functional Limits Lower Extremity ROM Assessment Within Functional Limits Strength Upper Extremity Strength Assessment Within Functional Limits Lower Extremity Strength Assessment Bilaterally Impaired Comments Strength Comments RLE grossly 4/5, LLE grossly 3 /5 Coordination Assessment Gross Coordination Gross Coordination WNL Sensation Assessment Comments Sensation Comments pt denies numbness/tingling M6 PT-IP Treatment Start: 10/14/18 09:36 Freq: NEEDED Status: Active Protocol: Document 10/14/18 11:31 RS (Rec: 10/14/18 11:54 RS [id number]) Physical Therapy Treatment Education Education Provided Precautions Safety M7 PT-IP Assessment and Plan Start: 10/14/18 09:36 Freq: NEEDED Status: Active Protocol: Document 10/14/18 11:31 RS (Rec: 10/14/18 11:54 RS [id number]) PT Summary Assessment and Plan Potential Rehabilitation Potential Excellent Status of Condition at Evaluation Stable Summary Impairments Pain Strength Activity Tolerance Progress Towards Goals Safe For Discharge Goals Met Assessment Summary Pt is POD#1 L5-S1 lami-fusion and is mobilizing well. Pt does present with BLE weakness and impaired activity tolerance, but there is a chronic component to this as well. Pt walked 40ft which is nearly twice as far as patient could walk prior to surgery but far below pt's pre-injury level of function. Pt is able to function safely within her lumbar spinal precautions. For the most part pt is ind to mod ind (for time/effort) for transfers and gait. Pt does require intermittent CGA for bed mobility for reassurance with moving BLE in/out of bed, but the family can definitely provide this level of assist at home. Pt is safe to discharge directly home once medically ready, but recommend home health PT follow-up to continue improving activity tolerance and biomechanics before patient progresses to outpatient PT. Pt/family in agreement with this plan. Pt has no other acute PT goals, will sign off. Goals Bed Mobility Goal Contact Guard Assistance Transfer Goal Independent Gait Goal Independent Gait Distance 40 Days to Meet Goals 1 Frequency of Treatment Frequency Of Treatment Discharge Recommendations To Nursing Amount of Assist Needed Standby Assistance 1 Person Assist Discharge Recommendations PT Discharge Recommendations Home with Assistance Home Health
--- NOTE | 2018-10-14 12:09 | PC.NURSE ---
Addendum entered by Ramses Dozier R.N. 10/14/18 13:51: Pt transferred independently to w/c and was escorted to POV (driven by daughter) by WEB ANALYST in no acute distress. All belongings gathered and sent with pt. Original Note: Pt to d/c home with family per written orders. Pt is requiring minimal assistance with ADLs and demonstrating proper form with activity restrictions. She is ambulating with steady gait without assistive device. Reviewed d/c packet with pt and daughter. Reviewed rxs, home meds, dose/frequency/route, next dose due, side effects. Provided education regarding post op wound infection. Reviewed already scheduled f/u appt. Removed PIV with cath tip intact. Changed dsg to back per verbal order received by RAVINDER Thompson. Instructed pt to leave in place until f/u appt. Provided office number for Dr. Reyes to call with concerns. Educated on when to seek emergency medical treatment. Pt and daughter both verbalize understanding of teaching and state no questions at this time. Discussed pt needing O2 bleed in with PA on rounds prior to d/c. PA states likely r/t post op and anesthetic effect.
== END 2018-10-14 12:15 | disposition home or self-care (01) | DRG 304 ==
LOC: AC 12:13 → ICU 12:25
PROVIDERS: Admitting Provider Orthopaedic Surgery Orthopaedic Surgery of the Spine; Family Provider Family Medicine; PCP Family Medicine; Visit Provider Orthopaedic Surgery Orthopaedic Surgery of the Spine
PROC: 0SG30AJ Fusion of Lumbosacral Joint with Interbody Fusion Device, Posterior Approach, Anterior Column, Open Approach (ICD-10-PCS; principal; 2018-10-13 14:15)
DX: M43.17 Spondylolisthesis, lumbosacral region (principal); G47.30 Sleep apnea, unspecified; E07.9 Disorder of thyroid, unspecified; E66.9 Obesity, unspecified; Z68.42 Body mass index [BMI] 45.0-49.9, adult; K21.9 Gastro-esophageal reflux disease without esophagitis; J45.909 Unspecified asthma, uncomplicated; F41.9 Anxiety disorder, unspecified; M48.07 Spinal stenosis, lumbosacral region; M47.27 Other spondylosis with radiculopathy, lumbosacral region
CPT/HCPCS: 36415; 72100; 76000; 85014; 85018; 87797; 94640; 94760; 97116; 97161; 97165; 97530; 97535; C1776; C9290; J0330; J0690; J1100; J1170; J2405; J2704; J3010

== ENCOUNTER 2019-01-19 06:02 | Inpatient (IN) | payer OTHER, SELFPAY ==
[2018-10-13 18:53] VITALS: BMI 47.7
[2019-01-09 10:43] VITALS: BMI 47.7
[2019-01-19] VITALS (13 sets, daily range): BP systolic 124–157; BP diastolic 74–93; PULSE 64–91; RESP 8–18; TEMP 36.3–36.9; O2SAT 94–100; BMI 47.7
--- NOTE | 2019-01-19 | DI.RAD.S_ITS ---
PROCEDURE: XR LUMBAR SPINE 2-3V INDICATIONS: L4-5 TLIF TECHNIQUE: 2 views of the lumbar spine were acquired. COMPARISON: [facility] [place], CR, XR LUMBAR SPINE 2 OR 3 VIEWS, 12/25/2018, 8:19. [facility] [place], CR, XR LUMBAR SPINE 2 OR 3 VIEWS, 11/20/2018, 12:58. [facility], CR, XR LUMBAR SPINE 2-3V, 10/13/2018, 15:03. FINDINGS: Intraoperative fluoroscopy documents the presence of posterior spinal fusion hardware of the lower lumbosacral spine with intervertebral body disc spacer devices. There is suboptimal visualization of the anatomic structures due to fluoroscopic technique. IMPRESSION: Intraoperative fluoroscopy documents the presence of posterior spinal fusion hardware of the lower lumbosacral spine with intervertebral body disc spacer devices. Please see operative report for further details. Dictated by: Jordan Thomas M.D. on 01/19/2019 at 12:21 Approved by: Jordan Thomas M.D. on 01/19/2019 at 12:25
[2019-01-19] MEDS: LACTATED RINGERS 1,000 ML 42 ML IV ×2 (06:50→10:12)
[2019-01-19] MEDS: CEFAZOLIN 2 GM/100 ML FROZ.PIGGY IV ×3 (08:11→23:40)
[2019-01-19] MEDS: ACETAMINOPHEN IV 1,000 MG/100 ML VIAL 400 MG IV (08:15)
--- NOTE | 2019-01-19 08:40 | SUR.OPER ---
Prone on spine table, head in foam head support, padded chest and pelvic supports, gel pad at knees, lower legs supported by pillows; nipples, genitalia and toes free of pressure, arms secured on foam padded arm boards at <90 degrees abduction. Tape over blanket at thigh secured to table.Addtional gel pads along hip and torso area on right side.
[2019-01-19] MEDS: BUPIVACAINE 0.25% W/ EPI 30 ML VIAL INJ (08:58)
[2019-01-19] MEDS: BUPIVACAINE LIPOSOME 266 MG/20 ML VIAL INJ (08:58)
--- NOTE | 2019-01-19 12:17 | P.OP_ITS ---
Operative Date/Time/Diagnoses Date of procedure: 01/19/19 Time of procedure: 07:51 Pre-op diagnosis: 1. Broken spine hardware lumbar spine 2. Delayed spinal fusion L5-S1. 3. L4-5, L5-S1 spinal stenosis 4. L4-5, L5-S1 spondylosis with radiculopathy Post-op diagnosis: same Procedure & Clinicians Procedure: 1. L4-5 posterolateral and posterior interbody fusion 2. L4-5 posterior interbody cage placement 3. L5-S1 posterior non-segmental instrumentation removal 4. L5-S1 revision laminectomy with exploration of fusion 5. L4-5, L5-S1 posterior segmental instrumentation with pedicle screw placement 6. L5-S1 posterolatearl fusion 7. Sheridan of bone marrow from iliac crest through a separate incision 8. Utilization of microsurgical technique and operating microscope Same procedure as scheduled: Yes Indications: Patient has been having chronic back pain and worsening lumbar radiculopathy. On postop follow-up, patient was found to have broken hardware at L5 level. Patient was doing well for the initial postop period. Patient has been having worsening pain over the last month. Patient failed multiple conservative management with worsening pain weakness and numbness in her lower extremity. Patient has been having difficulty performing activity of daily living. After discussing risks benefits of treatment options, patient elected proceed with surgery. Surgeon: Jasmyn Reyes Interactive Media Director: Eliza Saez Click Yes if Unassisted: No Operative Notes Closure Type: primary Specimen(s): none sent Prosthetic devices, grafts, tissues, transplants, or devices: Globus Revolve screws, Rise cage Applied: catheter Estimated Blood Loss (mL): 100 Blood products transfused: none Procedure in detail: Patient was seen in the preoperative area. Risks and benefits of the surgery was discussed with the patient. Informed consent was ob tained from the patient and placed in the chart. Surgical site was marked. Patient was taken to the operative room. General anesthesia was administered. Prophylactic antibiotic was given to the patient less than 30 min before the incision was made. Patient was placed into a prone position on the [place] table. Patient's back was then prepped and draped in the sterile fashion. Time- out was performed at this time. Using patient's previous scar incision was made over the L4-5 L5-S1 interval on the left side. Fascia was incised in line with skin incision. Patient's previously placed hardware over the L5-S1 level was identified by dissecting down to the level the hardware using a Bovie and a Aburto. The locking caps which was removed using globus screwdriver. The locking milan was then removed from the tulips of the pedicle screws using a Fidelina. The pedicle screws were found to be broken. Using the broken screw removal instruments the broken screw was removed piecemeal from the L5 pedicle. There is significant instability identified L5-S1 level indicating a pseudoarthrosis. Wound was then explored to make sure all the broken hardware was removed from it. The Globus and MARS retractors was then placed into the wound and docked onto the L4 lamina using C-arm guidance. Using microsurgical technique and operating microscope a laminectomy facetectomy was performed by removing the L4 lamina and the L4-5 facet. The disc space at L4-5 level was identified next. And a total diskectomy was performed at L4-5 level. The endplates were decorticated using a rasp and shaver. The total diskectomy and decortication was performed at L4-5 level in order to to accomplish a L4-5 fusion. The local bone from the laminectomy and facetectomy was saved for local bone grafting. After the total diskectomy and decortication was completed, Bio4 bone graft material was combined with local bone that was harvested earlier. At this time, a separate skin is incision was made over the iliac crest. A Jamshidi needle was inserted into the iliac crest through a separate skin incision. 5 cc of bone marrow aspiration was obtained through the separate skin incision using a Jamshidi needle from the iliac crest. The bone marrow aspiration was combined with local bone and the Bio4 bone grafting material. The bone grafting material was placed into the L4-5 interbody space along with a expandable cage. The cage was expanded to its maximum height using the torque limiting screwdriver. At this time a mirror image incision was made on the right side. The fascia was incised in line with the skin incision. Patient's previously placed hardware on the right side was then removed in the same fashion as it was on the left side using broken screw removal instruments. The fusion mass on the right side was exposed by performing a right-sided hemilaminectomy at L5-S1 level. The hemilaminectomy was performed using the Kerrison rongeur to undercut the lamina as well removing additional epidural scar tissue for purpose of decompressing the epidural space. The fusion mass was explored and was found have visible motion indicating pseudoarthrosis. Globus MARS retractor was inserted and dock ed onto the L4-5 L5-S1 posterolateral gutter. Using the power drill, posterior- lateral decortication was performed at L4-5 L5-S1 level until bleeding cortical bone was identified. The remaining bone grafting material including DBM was placed into the L4-5 L5-S1 posterior lateral gutter he order to accomplish posterolateral fusion at the L4-5 L5-S1 level. The fusion was extended to the L4-5 level because patient had broken hardware at L5-S1 fusion, as well as significant distress due to patient's previous spondylolisthesis, also due to patient's large size and added stress due to her physique. Additional points of stability with minimize her risk with having future hardware failure and pseudoarthrosis. Patient's bone quality is also found to be poor due to her decreased mobility and postmenopausal status. Again additional points of fixation would minimize her chance of loosening of her hardware and again causing pseudoarthrosis. Using the double C-arm technique, pedicle screws were placed into the L4, L5 and S1 pedicles bilaterally. This was done by placing the Jamshidi needle into the pedicles, then placing the guidewires over the Jamshidi needle, and finally placing the cannulated screws over the guidewires bilaterally. After the pedicle screws were placed, 2 titanium rods was locked into the heads of the pedicle screws using locking caps and torque limiting screwdriver. After all the hardware was placed, and confirmed with AP and lateral C-arm imaging, the wound was then irrigated with sterile normal saline and packed with Ray-Wei gauze for 3 min to accomplish hemostasis. After the gauze was removed the deep fascia was closed with #1 Vicryl suture. The subcutaneous layer was closed with #1 Nylon in vertical matress suturing. The skin was closed with skin zeferino. Patient tolerated the procedure well. There were no complications. Complications: none Condition: stable Disposition: PACU Plan for aftercare: Admit to inpatient hospital
--- NOTE | 2019-01-19 12:39 | SUR.PHASEI ---
cloudy yellow urine output reported to dr. chance; states that he prefers to observe for SS; no orders given.
--- NOTE | 2019-01-19 12:48 | SUR.PHASEI ---
Room air trial - desat into upper 80's. Drowsy, bed adjusted for position of comfort.
--- NOTE | 2019-01-19 13:15 | SUR.PHASEI ---
1301 To room 217; began complaining of low back pain during preparation to transport to floor. made worse by the bumps in the elevator; began moaning when we got her into the room. Place on o2 at 2LNP, SCDs on, back dressing remains CDI. Skin warm and dry, resp even and regular. Clothing bag taken to room with the patient. Responses to questions appropriate, denies nausea.
[2019-01-19] MEDS: SODIUM CHLORIDE 0.9% 1,000 ML 100 ML IV ×2 (13:56→22:57)
[2019-01-19] MEDS: HYDROMORPHONE 1 MG INJ 0.5 MG IV (13:58)
--- NOTE | 2019-01-19 15:36 | PC.NURSE ---
AM Shift pt arrived to floor at 1310 from PACU. C/O 8 pain in back. AOx4 but drowsy. Able to take sips of water and advanced to ice chips and jello. Denying nausea. IV infusing NS at 100/hr. 0.5mg IV Dilaudid administered at 1355 for 05/16 and decreased to 6/. pt is now more alert and awake, at bedside. pt able to engage and answer admission questions. Persaud catheter draining to gravity, cloudy and yellow color. Receptive to PT later in the day.
[2019-01-19] MEDS: PROPRANOLOL 10 MG TABLET 20 MG PO ×2 (15:53→21:08)
--- NOTE | 2019-01-19 17:23 | PT.IIE ---
Current Diagnoses Radiculopathy, site unspecified (01/19/19) Other mechanical complication of other internal orthopedic devices, implants and grafts, initial encounter (01/19/19) Arthrodesis status (01/19/19) Surgery Performed Operation Date: 01/19/19 07:45 Actual Procedures p L5-S1 Lumbar HWR/Reinsertion/Exploration/Repeat Laminectomy & repeat PSF,L4-5 TLIF - Jasmyn Reyes MD Surgical History (Last Updated 01/09/19 @ 10:53 by Consuelo Lynch RN) History of lumbar spinal fusion (Acute 10/13/18) History of arthroplasty of right knee (Acute) History of bilateral tubal ligation (Acute) Hx of cholecystectomy (Acute) Hx of hernia repair (Acute) Hx of partial thyroidectomy (Acute) Hx of tonsillectomy (Acute) S/P foot surgery, right (Acute) Medical History (Last Reviewed 01/19/19 @ 16:11 by Martin Marr, PT, [place]) Arthritis (Acute) Chronic neck and back pain (Acute) Depression (Acute) Difficulty swallowing (Acute) Easy bruisability (Acute) Elbow fracture, right (Acute) GERD (gastroesophageal reflux disease) (Acute) Generalized edema (Acute) HTN (hypertension) (Acute) History of hysterectomy (Acute) Hyperlipidemia (Acute) Numbness and tingling (Acute) Pinched nerve (Acute) Severe anxiety (Acute) Shortness of breath (Acute) Sleep apnea (Acute) Physical Therapy Inpatient Evaluation/Re-Eval M1 PT/OT-IP Prior Functional Status Start: 01/19/19 16:55 Freq: NEEDED Status: Active Protocol: Document 01/19/19 16:56 MIKY (Rec: 01/19/19 17:23 EA [id number]) Medical Review Prior Functional Status Medical History Reviewed Yes Diet/Fluid Consistency Regular Communication Normal Mobility and Gait Indep mobility with ability to walk < 200 ft with no walking aid. No fall recalled Activities of Daily Living and IADL's Sedentary work Social History Household Members spouse family children Living Arrangements House Number of Floors (Floors) One Floor Number of Stairs To Enter/Railing? 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 M2 PT-IP Current Condition Start: 01/19/19 16:55 Freq: NEEDED Status: Active Protocol: Document 01/19/19 16:56 EA (Rec: 01/19/19 17:23 EA [id number]) Physical Therapy Current Condition Current Condition Evaluation Date 01/19/19 Treatment Diagnosis s/p L4-L5, L5-S1, TLIF W/ POST INSTRU W/SCREWS Precautions Lumbar Precautions Log Roll No Twisting Limit Bending Lifting Restriction of 10 lbs Gait Belt above Incisional Area Weight Bearing Status Weight Bearing Status Weight Bear as Tolerated M3 PT-IP Subjective Start: 01/19/19 16:55 Freq: NEEDED Status: Active Protocol: Document 01/19/19 16:56 EA (Rec: 01/19/19 17:23 EA [id number]) Subjective Physical Therapy Visit Type Type Initial Evaluation Visit Start Time 16:10 Visit Stop Time 16:50 Total Visit Minutes 40 Number of LEATHER GOODS II ASSEMBLER Visits 0 Physical Therapy Visit Comments Patient Comments Patient agreeable to ambulate within the room. Patient Goals Patient would like to get as much independent in all functional transfer and mobility prior to discharge. Therapy Pain Assessment Pain When Pain Assessed At Rest Pain Present Pain Present Pain Reported Location Back Intensity 4 Scale Used Numeric (1 - 10) Description Acute M4 PT-IP Mobility and Gait Start: 01/19/19 16:55 Freq: NEEDED Status: Active Protocol: Document 01/19/19 16:56 EA (Rec: 01/19/19 17:23 EA [id number]) PT-Bed Mobility Assessment Rolling Type of Rolling Log Rolling Level of Assist Standby Assistance Supine to Sit Supine to Sit Contact Guard Assistance Sit to Supine Sit to Supine Minimal Assistance Scooting Scooting to Edge of Bed Minimal Assistance Scooting Up and Down in Bed Minimal Assistance PT-Transfer Assessment Sit to and From Stand Sit to and from Stand Minimal Assistance Equipment Transfer Assistive Device Gait Belt Front Wheeled Walker Transfers Transfer Destination Bed Chair Transfer Technique stepping Transfer Ability Level of Assist Contact Guard Assistance Comments Mobility Comments Patient requires assistance with scooting to EOB due to high bed height relative to patient height 50. Gait Assessment Gait Gait Assistance Required: Contact Guard Assist Distance (Feet) 10 Able to Maintain Weight Bearing Status Yes During Gait Assistive Devices Assistive Device Front Wheeled Walker Orthotic/Prosthetic Devices or Brace: No Gait Deviations General Gait Pattern Within Normal Limits Comments Gait Comments Slow unsteady but improved once patient startsmobilizing. Vitals are WNL. No SOB noted PT-Balance Assessment Sitting Balance and Reactions Static Sitting Balance Ability Good Dynamic Sitting Balance Ability Good Standing Balance and Reactions Static Standing Balance Ability Good Dynamic Standing Balance Ability Fair M5 PT-IP Objective Assessments Start: 01/19/19 16:55 Freq: NEEDED Status: Active Protocol: Document 01/19/19 16:56 EA (Rec: 01/19/19 17:23 EA [id number]) Orientation Orientation/Cognition Level of Alertness Alert Orientation Name Age Language Function Ability No Deficits Noted Safety Awareness Understands Safety Issues Memory Description No Deficits Noted Gross Range of Motion Upper Extremity ROM Assessment Within Functional Limits Lower Extremity ROM Assessment Within Functional Limits Strength Upper Extremity Strength Assessment Within Functional Limits Lower Extremity Strength Assessment Within Functional Limits Coordination Assessment Gross Coordination Gross Coordination WNL Assessment Finger to Nose Test Normal Performance Pronation/Supination Test Normal Performance Foot Tapping Test Normal Performance Heel on Camp Test Normal Performance Sensation Assessment Sensation Gross Sensation WNL Light Touch Intact Proprioception (Position) Intact M6 PT-IP Treatment Start: 01/19/19 16:55 Freq: NEEDED Status: Active Protocol: Document 01/19/19 16:56 EA (Rec: 01/19/19 17:23 EA [id number]) Physical Therapy Treatment Education Education Provided Precautions Weight Bearing Status Post-Op Packet Safety M7 PT-IP Assessment and Plan Start: 01/19/19 16:55 Freq: NEEDED Status: Active Protocol: Document 01/19/19 16:56 EA (Rec: 01/19/19 17:23 EA [id number]) PT Summary Assessment and Plan Potential Rehabilitation Potential Good Status of Condition at Evaluation Evolving Summary Impairments Pain Bed Mobility Transfers Gait Activity Tolerance Assessment Summary Pt exhibits difficulty with transfers and ambulation due to decreased activity tolerance and surgical pain. Patient requires school office assistant in all functional transfers and mobility at this time. She would greatly benefit with skilled PT to reach functional goals prior to discharge. Goals Bed Mobility Goal Independent Transfer Goal Independent Gait Goal Independent Gait Distance 100 ft Other Goals 2 steps without rails Days to Meet Goals 2 Frequency of Treatment Frequency Of Treatment Twice a Day Treatment Plan Physical Therapy Treatment Plan Bed Mobility Training Transfer Training Gait Training Post Op Education Discharge Planning Recommendations To Nursing Amount of Assist Needed 1 Person Assist Discharge Recommendations PT Discharge Recommendations Home with 24/ Assist
[2019-01-19] MEDS: OXYCODONE IR 5 MG TABLET 10 MG PO ×2 (17:31→21:09)
[2019-01-19] MEDS: HYDROMORPHONE 0.5 MG INJ IV ×2 (19:32→23:50)
[2019-01-19] MEDS: SENNOSIDES 8.6 MG TABLET 17.2 MG PO (21:08)
[2019-01-19] MEDS: DOCUSATE 100 MG CAPSULE PO (21:09)
[2019-01-19] MEDS: hydrOXYzine pamoate 25 MG CAPSULE PO (23:50)
[2019-01-20] VITALS (8 sets, daily range): BP systolic 97–128; BP diastolic 52–71; PULSE 70–86; RESP 14–20; TEMP 36.8–37.4; O2SAT 95–100
[2019-01-20] MEDS: OXYCODONE IR 5 MG TABLET 10 MG PO ×5 (01:40→20:21)
[2019-01-20] MEDS: PANTOPRAZOLE 40 MG TABLET PO (05:54)
[2019-01-20 06:36] LABS: Hematocrit 36.3 % (36-46); Hemoglobin 11.6 g/dL (12.0-16.0)
[2019-01-20] MEDS: FLUoxetine 20 MG CAPSULE 80 MG PO (08:13)
[2019-01-20] MEDS: ISOSORBIDE MONONITRATE ER 30 MG TABLET 60 MG PO (08:13)
[2019-01-20] MEDS: PROPRANOLOL 10 MG TABLET 20 MG PO ×3 (08:14→20:22)
[2019-01-20] MEDS: DOCUSATE 100 MG CAPSULE PO ×2 (08:14→20:22)
[2019-01-20] MEDS: SIMVASTATIN 20 MG TABLET PO (08:14)
[2019-01-20] MEDS: FUROSEMIDE 40 MG TABLET PO (08:14)
[2019-01-20] MEDS: FLUTICASONE 120 SPRAY/16 GM SPRAY.SUSP NASAL (08:15)
[2019-01-20] MEDS: LEVOTHYROXINE 125 MCG TABLET PO (08:15)
--- NOTE | 2019-01-20 09:00 | PM.PNPO.1 ---
Subjective Date Patient Seen: 01/20/19 Time Patient Seen: 09:01 Interval history: Hospital day 2, postop day 1 following L4-5, L5-S1 laminectomy, TLIF, cage, posterior screw fixation by Dr. Reyes. Patient has remained stable. has had increased low back pain. preoperative leg symptoms have improved. She did work with PT yesterday. She does not feel she is ready to be home today. pain controlled with oxycodone. Exam Vital Signs (past 8 hours): - 01/20/19 03:30 Temperature 98.2 F Pulse Rate 72 Respiratory Rate 18 Blood Pressure 118/65 Pulse Oximetry 98 Oxygen Delivery Method Nasal Cannula,CPAP Oxygen Flow Rate 0 Narrative Exam Narrative: Alert, oriented no acute distress lying in bed. back. Dressing to the lumbar areas dry with small areas shadowing. Legs. No calf pain or swelling. Pulses symmetrical. Good sensation to touch the lower legs. Good strength on foot dorsiflexion plantar flexion. Objective Labs Result Diagrams: 01/20/19 05:46 Labs: Laboratory Results - last 24 hr 01/20/19 05:46 Hgb 11.6 L Hct 36.3 Assessment & Plan Post-op Postoperative Procedures Operation Date: 01/19/19 07:45 Actual Procedures Side Surgeon p L5-S1 Lumbar HWR/Reinsertion/Exploration/Repeat Laminectomy & repeat PSF,L4-5 TLIF Jasmyn Reyes MD Plan: Patient will work with PT more today. anticipate DC Persaud catheter when she is more active. Anticipate discharge home tomorrow if stable.
[2019-01-20] MEDS: FLUTICASONE 110MCG HFA 120 PUFF INH (09:12)
--- NOTE | 2019-01-20 09:43 | OT.IP.EVAL ---
Current Diagnoses Radiculopathy, site unspecified (01/19/19) Other mechanical complication of other internal orthopedic devices, implants and grafts, initial encounter (01/19/19) Arthrodesis status (01/19/19) Surgery Performed Operation Date: 01/19/19 07:45 Actual Procedures p L5-S1 Lumbar HWR/Reinsertion/Exploration/Repeat Laminectomy & repeat PSF,L4-5 TLIF - Jasmyn Reyes MD Past Medical History (Last Reviewed 01/19/19 @ 16:11 by Martin Marr, PT, [place]) Arthritis (Acute) Chronic neck and back pain (Acute) Depression (Acute) Difficulty swallowing (Acute) Easy bruisability (Acute) Elbow fracture, right (Acute) GERD (gastroesophageal reflux disease) (Acute) Generalized edema (Acute) HTN (hypertension) (Acute) History of hysterectomy (Acute) Hyperlipidemia (Acute) Numbness and tingling (Acute) Pinched nerve (Acute) Severe anxiety (Acute) Shortness of breath (Acute) Sleep apnea (Acute) Surgical History (Last Updated 01/09/19 @ 10:53 by Consuelo Lynch RN) History of lumbar spinal fusion (Acute 10/13/18) History of arthroplasty of right knee (Acute) History of bilateral tubal ligation (Acute) Hx of cholecystectomy (Acute) Hx of hernia repair (Acute) Hx of partial thyroidectomy (Acute) Hx of tonsillectomy (Acute) S/P foot surgery, right (Acute) Occupational Therapy Inpatient Evaluation/Re-Eval M1 PT/OT-IP Prior Functional Status Start: 01/19/19 16:55 Freq: NEEDED Status: Active Protocol: Document 01/20/19 09:43 RUSSELL (Rec: 01/20/19 12:32 PJM [id number]) Medical Review Prior Functional Status Medical History Reviewed Yes Diet/Fluid Consistency Regular Communication Normal Mobility and Gait Indep mobility with ability to walk < 200 ft with no walking aid. Pt denies any falls. Activities of Daily Living and IADL's Pt states she was independent with all self care at home but activity level limited by low back pain. Pt's and daughter assist with all IADLs . Pt does drive when feeling well. 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 Social History Household Members spouse family children Living Arrangements House Number of Floors (Floors) One Floor Number of Stairs To Enter/Railing? 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 Pt's daughter lives with them and works land surveying party chief. M2 OT-IP Current Condition Start: 01/20/19 12:11 Freq: Status: Active Protocol: Document 01/20/19 09:43 PJM (Rec: 01/20/19 12:32 PJM [id number]) Occupational Therapy Current Condition Current Condition Evaluation Date 01/20/19 Treatment Diagnosis decreased self care,mobility s /p replacement of lumbar hardware, L4-S1 PLIF Diagnosis Onset Date 01/19/19 Post Operative Precautions Lumbar Precautions Log Roll No Twisting Limit Bending Lifting Restriction of 10 lbs Gait Belt above Incisional Area M3 OT- IP Subjective and Pain Start: 01/20/19 12:11 Freq: Status: Active Protocol: Document 01/20/19 09:43 PJM (Rec: 01/20/19 12:32 PJM [id number]) OT- Subjective Occupational Therapy Visit Type Type Initial Evaluation Visit Start Time 09:00 Visit Stop Time 09:43 Total Visit Minutes 43 Notes Pt familiar with lumbar spine precautions and adapted ADL techniques from previous lumbar fusion in October 2018 Occupational Therapy Visit Comments Patient Comments I only got 2 hrs sleep last night. Patient/Caregiver Goals to return to work in 3 months if MD approves OT Pain Assessment Pain When Pain Assessed After Treatment Pain Present Pain Present Pain Reported Location Back Intensity 7 Scale Used Numeric (1 - 10) Description Aching Acute Pain Behaviors Facial Grimacing Guarding Management Techniques Distraction Re-positioning Timing of Activity with Medications M4 OT- IP ADL's Start: 01/20/19 12:11 Freq: Status: Active Protocol: Document 01/20/19 09:43 PJM (Rec: 01/20/19 12:32 PJM [id number]) OT GNS-Bzva-Gtdvcqu General Evaluation Self-Feeding Ability Independent OT ADL-Grooming General Evaluation Grooming Ability Independent Comments OT Grooming Comments provided education re: body mechanics OT ADL-Oral Care General Eval Oral Care Ability Independent OT ADL-Dressing General Eval Upper Body Dressing Ability Independent Lower Body Dressing Ability Standby Assistance Assistive Devices Dressing Assistive Devices Long Handled Shoe Horn Development Technical Lead Comments OT Dressing Comments Pt has electrical accessories assembler at home. Provided education re: use to get underwear and pants over feet and body mechanics. Pt declines sock aid as she rarely wears socks; wears slip on shoes. OT ADL-Toileting General Evaluation Toileting Ability Standby Assistance Areas Needing Assistance Perform Perineal Hygiene Devices Toileting Assistive Devices Toilet Paper Aid Comments OT Toileting Comments Pt obtained toilet paper aid after last surgery, but requesting further education re: effective technique. Provided further education and pt verbalizes understanding. OT ADL-Bathing Comments OT Bathing Comments Pt declines to shower today due to pain level. She has long bath sponge at home. Pt uses tub shower at home without grab bars. Provided further education re: body mechanics for tub transfer and recommend clamp on tub grab bar to improve safety. Resource information provided. M5 OT- IP IADL's Start: 01/20/19 12:11 Freq: Status: Active Protocol: Document 01/20/19 09:43 PJM (Rec: 01/20/19 12:32 PJ [id number]) OT-Instrumental Activities of Daily Living Deficits IADL Deficits Identified Deficits Home Safety Awareness Awareness of Need for Assistance at Home Good Awareness Ability to Problem Solve Emergency Able to Problem Solve Situations Medication Management Medication Management No Deficits Identified Money Management Money Management No Deficits Identified Meal Preparation Meal Preparation Caregiver Provides Assist Meal Preparation Comments family provides assist Social Research Assistant Social Research Assistant Caregiver Provides Assist Social Research Assistant Comments family provides assist Driving Driving Caregiver Provides Assist Driving Comments family to assist until pt able M6 OT- IP Functional Cognition Start: 01/20/19 12:11 Freq: Status: Active Protocol: Document 01/20/19 09:43 PJM (Rec: 01/20/19 12:32 [email or web address] [id number]) Cognitive Factors Limiting Selfcare Function Cognitive Ability Level of Alertness Alert Patient Orientation Name Age Birthday Month Date Year Day of Week Place Situation Attention Span Ability Capable of Focused Attention Capable of Sustained Attention Ability to Follow Commands Able to Follow One Step Commands Memory Description No Deficits Noted Safety Awareness Decreased Ability to Apply Precautions Problem Solving Ability No deficits Noted Cognitive Comments Cognitive Assessment Comments Pt recalls 3/3 lumbar precautions but having difficulty applying them during bed mobility this session. Discussed with P.T. and they will review bed mobility techniques with pt. OT- Vision and Hearing OT- Hearing Assessment OT- Hearing Assessment WFL OT- Vision Assessment Visual Acuity Glasses All The Time Vision Assessment Comments Pt denies any recent vision changes M7 OT- IP Mobility and Balance Start: 01/20/19 12:11 Freq: Status: Active Protocol: Document 01/20/19 09:43 PJM (Rec: 01/20/19 12:32 PJM [id number]) OT- Bed Mobility Assessment Rolling Type of Rolling Roll to Right Level of Assistance Standby Assistance Supine to Sit Supine to Sit Assist Minimal Assistance Scooting Scooting to Edge of Bed Standby Assistance OT-Transfer Assessment Sit to and From Stand Sit to and from Stand Contact Guard Assistance Transfers Transfer Ability Contact Guard Assistance Technique Transfer Destination Chair Transfer Technique Stand Step Pivot Devices Transfer Assistive Devices Bed Rail Gait Belt Front Wheeled Walker Comments Mobility Comments Pt needs mod verbal cues for log rolling technique and heavy use of bed rail this session. Pt states she now has power bed at home. Bed is high and pt uses foot stool to access it. OT- Gait Assessment Gait Gait Assistance Required: Contact Guard Assist Distance (Feet) 10 Assistive Devices Assistive Device Gait Belt Front Wheeled Walker Comments Gait Ability Comments pt ambulated around bed to chair OT- Balance Assessment Sitting Balance and Reactions Static Sitting Balance Ability Good Standing Balance and Reactions Static Standing Balance Ability Good M8 OT- IP Objective Assessments Start: 01/20/19 12:11 Freq: Status: Active Protocol: Document 01/20/19 09:43 PJM (Rec: 01/20/19 12:32 PJM [id number]) OT Gross Range of Motion Upper Extremity Range of Motion Assessment Within Functional Limits ROM Impairments except B shoulder scaption about 100 degrees due to B shoulder arthritis OT Strength Upper Extremity Strength Assessment Within Functional Limits Hand Rn Digestive Strength Hand Dominance Right OT- Coordination Assessment Upper Extremity Finger to Nose Test Within Functional Limits Finger Tapping Test Within Functional Limits OT-Muscle Tone Assessment Muscle Tone WNL Yes OT Sensation Assessment Comments Summary Comments sensation WNL BUE per pt Edema Edema Absent M9 OT- IP Assessment and Plan Start: 01/20/19 12:11 Freq: Status: Active Protocol: Document 01/20/19 09:43 PJM (Rec: 01/20/19 12:32 PJM [id number]) OT Summary Assessment and Plan Potential Rehabilitation Potential Excellent Analytic Complexity at Evaluation Low Summary Progress Towards Goals Goals Met Assessment Summary Low complexity OT assessment completed with emphasis on lumbar spine precautions on this 58 yr old pt s/p repeat lumbar spine fusion due to broken hardware. Pt familiar with precautions and adapted ADL techniques from previous surgery 3 months ago and has all necessary equipment at home. Supportive and daughter can provide 24 hr assist at home. All OT education completed with pt today. Pt plans to d/c home when medically stable and clears P.T. No further OT services needed for this admission. Frequency of Treatment Frequency Of Treatment Discharge Discharge Recommendations OT Discharge Recommendations Home with 24/7 Assist Home Equipment Needs recommend tub grab bar
--- NOTE | 2019-01-20 11:28 | CM.DANOTE ---
DCP/Assessment: Reviewed chart. Patient is a 58yr old female admitted [facility] spine surgery performed on 01-19-[address] Reyes. Primary payor is 1)L&I PCP is Dr. Zambrano. Met with patient explained CM/SW role. Patient alert and oriented, resting comfortably in bed at time of visit. Patient reports that she plans to d/c home with supportive spouse/Chuck when medically stable. Patient denies any d/c planning needs. Patient has had previous spine surgeries and feels educated on what to expect. Patient seen by OT and they confirm. P: Home when stable. RYAN Araiza Discharge Planning/Care Management CM Discharge Assessment Start: 01/20/19 11:26 Freq: Status: Active Protocol: Document 01/20/19 11:26 KJS (Rec: 01/20/19 11:28 KJS [id number]) Discharge Planning Assessment Assigned Church Supervisor RYAN Araiza Contact Information Chuck Barton (spouse) Advance Directives? No History Provided By Patient Family Member Medical Record Prior Living Arrangements House Household Members spouse family children Type of transporation used prior to Drives own vehicle admit Independent with ADL's Yes Is patient alert and oriented? Yes Comment Uses CPAP at night provided by [facility]. DME Already Rented / Owned FWW / Walker Barriers to Discharge No Discharge Plan Home Transportation Arrangement Spouse/Chuck to provide transportation. Referrals Initiated None needed Whiteboard Updated in Patient Room with Yes name and ext. # of Church Supervisor Review Status In Process Next Review Type Continued Stay Review Pre-Anesthesia Assessment Start: 01/09/19 10:43 Freq: Status: Active Protocol: Document 01/09/19 10:43 CAB (Rec: 01/09/19 10:53 CAB [id number]) Pre-Anesthesia Assessment Patient Also Known As (AKA) Myra Patient Information Reviewed Via Chart Review Diagnostic Results BMP/CMP CBC Comment Outside labs scanned to record Primary Care Provider Yi Zambrano Seen Specialist in Last 12 Months Yes Specialist Seen Orthopedist Primary Language Niuean Preferred Language Niuean Manager Transfusion Required No Height 156.21 cm Weight 116.573 kg Body Mass Index (BMI) 47.7 Hearing Ability Normal Visual Assist Glasses Dentition Type Teeth, Natural Present Teeth, Missing Barriers to Learning None Hx Anesthesia Reactions No Hx Family Anesthesia Reaction No Hx Malignant Hyperthermia No Hx Blood Transfusions No Anesthesia Review Requested No Supervisor Compounding And Finishing No alcohol intake current alcohol intake frequency holidays/special occasions only Smoking Status Never smoker Substance Use Type does not use Pain Present Pain Reported Musculoskeletal Symptoms Abnormal Gait Back Pain Difficulty Walking Joint Pain Muscle Spasms Neck Pain Numbness Radiating Pain into Limb History of Falling (Recent or History of Yes ) Patient is completely paralyzed or No completely immobile Mental Status Oriented to own ability Is patient on oxygen? No Does patient have REA/SOB Yes: Intermittently, last episode 6 months ago Hx Sleep Apnea Yes: Pt states machine malfunctioning CPAP/BIPAP use prescribed used intermittently Currently Taking a Beta Cristino Yes: Propranolol for anxiety Can You Climb a Flight of Stairs Without No SOB Hx Chest Pain Yes: Last episode approx 2 years ago, work-up neg per pt Hx SOB Yes Hx Syncope or Dizziness No Anti-Coagulant Therapy No Has a Closed Circuit Screen Watcher No Cardiac Testing No Hx Pacemaker/ICD No Pacemaker Rep Required? No Cardiac Clearance Received Not Applicable Diet Type At Home Regular dysphagia Yes: Occasional Bladder Pattern Nocturia Urgency Urinary Catheter Present No Hx Urinary Self Catheterization No Diabetes No Patient No Lactating No Hx Drug Resistant Organism No Presence of External or Internal Medical No Devices Have you traveled outside the [facility] States in the last 30 days? Marital Status Lives With spouse family children Prior Living Arrangements House Number of Floors (Floors) One Floor Number of Stairs To Enter/Railing? 1 step, no railing Support System Child/Children Spouse Does the Patient Have Assistance After Yes Surgery Patient Discharge Plan Description Return Home Feels Safe in Current Environment Yes Been Physically Hurt or Threatened By a No Person in Current Environment Do you have thoughts of harming yourself None or others? Are you currently considering suicide? No Do you have a plan to hurt yourself or No Plan others? Do You Have Any Spiritual Beliefs That No May Affect Your HC Choices? Do You Have Any Cultural Practices That No May Affect Your HC Choices? Spiritual Referral None Who Can We Speak to About Patient's Care Family, friends Identifying Code for Release of Patient Declines to issue Information Health Care Proxy/Next of Kin Chuck () Health Care Proxy or [phone] Emergency Contact Name Chuck () Emergency Contact or [phone] Advance Directives? No: Delines further information Power of Business Rules Developer No
--- NOTE | 2019-01-20 12:07 | PT.IPTN ---
Current Diagnoses Radiculopathy, site unspecified (01/19/19) Other mechanical complication of other internal orthopedic devices, implants and grafts, initial encounter (01/19/19) Arthrodesis status (01/19/19) Surgery Performed Operation Date: 01/19/19 07:45 Actual Procedures p L5-S1 Lumbar HWR/Reinsertion/Exploration/Repeat Laminectomy & repeat PSF,L4-5 TLIF - Jasmyn Reyes MD Physical Therapy Treatment Note M2 PT-IP Current Condition Start: 01/19/19 16:55 Freq: NEEDED Status: Active Protocol: Document 01/19/19 16:56 EA (Rec: 01/19/19 17:23 EA [id number]) Physical Therapy Current Condition Current Condition Evaluation Date 01/19/19 Treatment Diagnosis s/p L4-L5, L5-S1, TLIF W/ POST INSTRU W/SCREWS Precautions Lumbar Precautions Log Roll No Twisting Limit Bending Lifting Restriction of 10 lbs Gait Belt above Incisional Area Weight Bearing Status Weight Bearing Status Weight Bear as Tolerated M3 PT-IP Subjective Start: 01/19/19 16:55 Freq: NEEDED Status: Active Protocol: Document 01/20/19 11:02 CLB (Rec: 01/20/19 12:07 CLB [id number]) Subjective Physical Therapy Visit Type Type Treatment Note Visit Start Time 11:02 Visit Stop Time 11:25 Total Visit Minutes 23 Number of CLINIC LPN Visits 1 Physical Therapy Visit Comments Patient Comments Pt just got back to bed due to pain in chair but agreed to ambulate then get back to bed. Therapy Pain Assessment Pain When Pain Assessed During Mobility Location Back Intensity 6 Scale Used Numeric (1 - 10) M4 PT-IP Mobility and Gait Start: 01/19/19 16:55 Freq: NEEDED Status: Active Protocol: Document 01/20/19 11:02 CLB (Rec: 01/20/19 12:07 CLB [id number]) PT-Bed Mobility Assessment Supine to Sit Supine to Sit Contact Guard Assistance Sit to Supine Sit to Supine Contact Guard Assistance Head of Bed Elevated Scooting Scooting to Edge of Bed Standby Assistance Scooting Up and Down in Bed Standby Assistance PT-Transfer Assessment Sit to and From Stand Sit to and from Stand Contact Guard Assistance Equipment Transfer Assistive Device Gait Belt Front Wheeled Walker Transfers Transfer Destination Bed Transfer Technique Stand Step Pivot Transfer Ability Level of Assist Contact Guard Assistance Gait Assessment Gait Gait Assistance Required: Standby Assistance Contact Guard Assist Distance (Feet) 150 Assistive Devices Assistive Device Gait Belt Front Wheeled Walker Orthotic/Prosthetic Devices or Brace: No Gait Deviations General Gait Pattern Within Normal Limits Comments Gait Comments Pt ambulated in penn ~150ft SBA/CGA/FWw. Stair Climbing Assessment Comments Stair Climbing Comments Will attempt this PM with and daughter. M5 PT-IP Objective Assessments Start: 01/19/19 16:55 Freq: NEEDED Status: Active Protocol: Document 01/19/19 16:56 EA (Rec: 01/19/19 17:23 EA [id number]) Orientation Orientation/Cognition Level of Alertness Alert Orientation Name Age Language Function Ability No Deficits Noted Safety Awareness Understands Safety Issues Memory Description No Deficits Noted Gross Range of Motion Upper Extremity ROM Assessment Within Functional Limits Lower Extremity ROM Assessment Within Functional Limits Strength Upper Extremity Strength Assessment Within Functional Limits Lower Extremity Strength Assessment Within Functional Limits Coordination Assessment Gross Coordination Gross Coordination WNL Assessment Finger to Nose Test Normal Performance Pronation/Supination Test Normal Performance Foot Tapping Test Normal Performance Heel on Camp Test Normal Performance Sensation Assessment Sensation Gross Sensation WNL Light Touch Intact Proprioception (Position) Intact M6 PT-IP Treatment Start: 01/19/19 16:55 Freq: NEEDED Status: Active Protocol: Document 01/19/19 16:56 EA (Rec: 01/19/19 17:23 EA [id number]) Physical Therapy Treatment Education Education Provided Precautions Weight Bearing Status Post-Op Packet Safety M7 PT-IP Assessment and Plan Start: 01/19/19 16:55 Freq: NEEDED Status: Active Protocol: Document 01/20/19 11:02 CLB (Rec: 01/20/19 12:07 CLB [id number]) PT Summary Assessment and Plan Potential Rehabilitation Potential Good Status of Condition at Evaluation Evolving Summary Impairments Pain Bed Mobility Transfers Gait Activity Tolerance Assessment Summary Pt able to increase gait distance in penn. Pt has sleep number bed with ability to raise HOB, pt requires use of stool to get OOB at home due to her height. Pt respectfully refused LR but is able to get OOB w/o breaking BLT precautions. Pt recalls 3/3 precautions. CG training scheduled for 1:30 this afternoon with and daughter including stairs w/ FWW on platform and bed mobility. Goals Bed Mobility Goal Independent Transfer Goal Independent Gait Goal Independent Gait Distance 100 ft Other Goals 2 steps without rails Days to Meet Goals 2 Frequency of Treatment Frequency Of Treatment Twice a Day Treatment Plan Physical Therapy Treatment Plan Bed Mobility Training Transfer Training Gait Training Post Op Education Discharge Planning Recommendations To Nursing Amount of Assist Needed 1 Person Assist Discharge Recommendations PT Discharge Recommendations Home with 29/04 Assist
[2019-01-20] MEDS: hydrOXYzine pamoate 25 MG CAPSULE PO ×2 (16:39→20:22)
--- NOTE | 2019-01-20 17:31 | PT.IPTN ---
Current Diagnoses Radiculopathy, site unspecified (01/19/19) Other mechanical complication of other internal orthopedic devices, implants and grafts, initial encounter (01/19/19) Arthrodesis status (01/19/19) Surgery Performed Operation Date: 01/19/19 07:45 Actual Procedures p L5-S1 Lumbar HWR/Reinsertion/Exploration/Repeat Laminectomy & repeat PSF,L4-5 TLIF - Jasmyn Reyes MD Physical Therapy Treatment Note M2 PT-IP Current Condition Start: 01/19/19 16:55 Freq: NEEDED Status: Active Protocol: Document 01/19/19 16:56 EA (Rec: 01/19/19 17:23 EA [id number]) Physical Therapy Current Condition Current Condition Evaluation Date 01/19/19 Treatment Diagnosis s/p L4-L5, L5-S1, TLIF W/ POST INSTRU W/SCREWS Precautions Lumbar Precautions Log Roll No Twisting Limit Bending Lifting Restriction of 10 lbs Gait Belt above Incsional Area Weight Bearing Status Weight Bearing Status Weight Bear as Tolerated M3 PT-IP Subjective Start: 01/19/19 16:55 Freq: NEEDED Status: Active Protocol: Document 01/20/19 11:02 CLB (Rec: 01/20/19 12:07 CLB [id number]) Subjective Physical Therapy Visit Type Type Treatment Note Visit Start Time 11:02 Visit Stop Time 11:25 Total Visit Minutes 23 Number of COCOA PRESS OPERATOR Visits 1 Physical Therapy Visit Comments Patient Comments Pt just got back to bed due to pain in chair but agreed to ambulate then get back to bed. Therapy Pain Assessment Pain When Pain Assessed During Mobility Location Back Intensity 6 Scale Used Numeric (1 - 10) M4 PT-IP Mobility and Gait Start: 01/19/19 16:55 Freq: NEEDED Status: Active Protocol: Document 01/20/19 14:26 EA (Rec: 01/20/19 14:32 EA [id number]) PT-Bed Mobility Assessment Rolling Type of Rolling Roll to Left Supine to Sit Supine to Sit Contact Guard Assistance Sit to Supine Sit to Supine Contact Guard Assistance Head of Bed Elevated Scooting Scooting to Edge of Bed Standby Assistance Scooting Up and Down in Bed Minimal Assistance PT-Transfer Assessment Sit to and From Stand Sit to and from Stand Contact Guard Assistance Equipment Transfer Assistive Device Gait Belt Front Wheeled Walker Transfers Transfer Destination Bed Chair Transfer Technique Stand Step Pivot Transfer Ability Level of Assist Contact Guard Assistance Gait Assessment Gait Gait Assistance Required: Standby Assistance Contact Guard Assist Distance (Feet) 160 Assistive Devices Assistive Device Gait Belt Front Wheeled Walker Orthotic/Prosthetic Devices or Brace: No Gait Deviations General Gait Pattern Within Normal Limits Comments Gait Comments Requires frequent rests. Stair Climbing Assessment Evaluation Level of Assist On Stairs Contact Guard Assistance Devices Stair Climbing Assistive Devices Left Railing Right Railing Technique/Endurance Stair Climbing Direction Ascend and Descend Stair Climbing Technique Step to Step Number of Steps Climbed 3 Query Text: Stair Climbing Set # Repetitions (reps) 1 Comments Stair Climbing Comments and daughetr educated and good understanding with safety. PT-Balance Assessment Sitting Balance and Reactions Static Sitting Balance Ability Good Dynamic Sitting Balance Ability Good Standing Balance and Reactions Static Standing Balance Ability Good Dynamic Standing Balance Ability Fair M5 PT-IP Objective Assessments Start: 01/19/19 16:55 Freq: NEEDED Status: Active Protocol: Document 01/19/19 16:56 EA (Rec: 01/19/19 17:23 EA [id number]) Orientation Orientation/Cognition Level of Alertness Alert Orientation Name Age Language Function Ability No Deficits Noted Safety Awareness Understands Safety Issues Memory Description No Deficits Noted Gross Range of Motion Upper Extremity ROM Assessment Within Functional Limits Lower Extremity ROM Assessment Within Functional Limits Strength Upper Extremity Strength Assessment Within Functional Limits Lower Extremity Strength Assessment Within Functional Limits Coordination Assessment Gross Coordination Gross Coordination WNL Assessment Finger to Nose Test Normal Performance Pronation/Supination Test Normal Performance Foot Tapping Test Normal Performance Heel on Camp Test Normal Performance Sensation Assessment Sensation Gross Sensation WNL Light Touch Intact Proprioception (Position) Intact M6 PT-IP Treatment Start: 01/19/19 16:55 Freq: NEEDED Status: Active Protocol: Document 01/19/19 16:56 EA (Rec: 01/19/19 17:23 EA [id number]) Physical Therapy Treatment Education Education Provided Precautions Weight Bearing Status Post-Op Packet Safety M7 PT-IP Assessment and Plan Start: 01/19/19 16:55 Freq: NEEDED Status: Active Protocol: Document 01/20/19 14:26 EA (Rec: 01/20/19 14:32 EA [id number]) PT Summary Assessment and Plan Potential Rehabilitation Potential Good Status of Condition at Evaluation Evolving Summary Impairments Pain Bed Mobility Transfers Gait Activity Tolerance Progress Towards Goals Progressing Toward Goals Assessment Summary Pt tolerated distance ambulation and stairs, however requires frequent rests to complete the tasks. Patient still requires pizza hut assistant during bed mobility and mostly scooting on EOB. She is very aware with back pre-cautions. Family was present during session and educated. Patient will continue to benefit with skilled PT. Goals Bed Mobility Goal Independent Transfer Goal Independent Gait Goal Independent Gait Distance 100 ft Other Goals 2 steps without rails with CGA Days to Meet Goals 1 Frequency of Treatment Frequency Of Treatment Twice a Day Treatment Plan Physical Therapy Treatment Plan Bed Mobility Training Transfer Training Gait Training Post Op Education Discharge Planning Recommendations To Nursing Amount of Assist Needed 1 Person Assist Discharge Recommendations PT Discharge Recommendations Home with 29/04 Assist
[2019-01-20] MEDS: SENNOSIDES 8.6 MG TABLET 17.2 MG PO (20:22)
[2019-01-21] MEDS: PANTOPRAZOLE 40 MG TABLET PO (05:58)
[2019-01-21 06:31] VITALS: BP 108/67; PULSE 71; RESP 16; TEMP 36.9; O2SAT 96
[2019-01-21] MEDS: LEVOTHYROXINE 125 MCG TABLET PO (07:38)
[2019-01-21] MEDS: OXYCODONE IR 5 MG TABLET 10 MG PO ×4 (07:47→21:48)
[2019-01-21 08:00] VITALS: BP 112/67; PULSE 72; RESP 17; TEMP 37.3; O2SAT 96
[2019-01-21] MEDS: FLUoxetine 20 MG CAPSULE 80 MG PO (08:45)
[2019-01-21] MEDS: SIMVASTATIN 20 MG TABLET PO (08:45)
[2019-01-21] MEDS: PROPRANOLOL 10 MG TABLET 20 MG PO ×3 (08:45→21:49)
[2019-01-21] MEDS: FUROSEMIDE 40 MG TABLET PO (08:45)
[2019-01-21] MEDS: DOCUSATE 100 MG CAPSULE PO ×2 (08:45→21:49)
[2019-01-21] MEDS: ISOSORBIDE MONONITRATE ER 30 MG TABLET 60 MG PO (08:45)
[2019-01-21] MEDS: hydrOXYzine pamoate 25 MG CAPSULE PO (08:47)
--- NOTE | 2019-01-21 09:59 | PT.IPTN ---
Current Diagnoses Radiculopathy, site unspecified (01/19/19) Other mechanical complication of other internal orthopedic devices, implants and grafts, initial encounter (01/19/19) Arthrodesis status (01/19/19) Surgery Performed Operation Date: 01/19/19 07:45 Actual Procedures p L5-S1 Lumbar HWR/Reinsertion/Exploration/Repeat Laminectomy & repeat PSF,L4-5 TLIF - Jasmyn Reyes MD Physical Therapy Treatment Note M2 PT-IP Current Condition Start: 01/19/19 16:55 Freq: NEEDED Status: Active Protocol: Document 01/19/19 16:56 EA (Rec: 01/19/19 17:23 EA [id number]) Physical Therapy Current Condition Current Condition Evaluation Date 01/19/19 Treatment Diagnosis s/p L4-L5, L5-S1, TLIF W/ POST INSTRU W/SCREWS Precautions Lumbar Precautions Log Roll No Twisting Limit Bending Lifting Restriction of 10 lbs Gait Belt above Incisional Area Weight Bearing Status Weight Bearing Status Weight Bear as Tolerated M3 PT-IP Subjective Start: 01/19/19 16:55 Freq: NEEDED Status: Active Protocol: Document 01/21/19 09:53 SA (Rec: 01/21/19 09:59 SA [id number]) Subjective Physical Therapy Visit Type Type Treatment Note Visit Start Time 08:59 Visit Stop Time 09:32 Total Visit Minutes 33 Number of SULFATE DRIER MACHINE OPERATOR Visits 2 Physical Therapy Visit Comments Patient Comments Pt in bed and agreeable to PT this AM. Therapy Pain Assessment Pain When Pain Assessed During Mobility Pain Present Pain Present Pain Reported Location Back Intensity 3 Scale Used Numeric (1 - 10) Pain Management Techniques Re-positioning Timing of Activity with Medications M4 PT-IP Mobility and Gait Start: 01/19/19 16:55 Freq: NEEDED Status: Active Protocol: Document 01/21/19 09:53 SA (Rec: 01/21/19 09:59 SA [id number]) PT-Bed Mobility Assessment Rolling Type of Rolling Log Rolling Roll to Left Level of Assist Contact Guard Assistance Supine to Sit Supine to Sit Contact Guard Assistance Sit to Supine Sit to Supine Contact Guard Assistance Head of Bed Elevated Scooting Scooting to Edge of Bed Standby Assistance Scooting Up and Down in Bed Standby Assistance PT-Transfer Assessment Sit to and From Stand Sit to and from Stand Contact Guard Assistance Equipment Transfer Assistive Device Gait Belt Front Wheeled Walker Orthotic/Prosthetic Devices or Brace: No Transfers Transfer Destination Bed Transfer Technique Stand Step Pivot Transfer Ability Level of Assist Contact Guard Assistance Comments Mobility Comments Pt CGA with most mobility tasks, review and practice of log roll technique in/out of bed with HOB elevated. Verbal/ visual review of spinal precautions. Gait Assessment Gait Gait Assistance Required: Standby Assistance Contact Guard Assist Distance (Feet) 175 Assistive Devices Assistive Device Gait Belt Front Wheeled Walker Orthotic/Prosthetic Devices or Brace: No Gait Deviations General Gait Pattern Within Normal Limits Comments Gait Comments Slow, steady gait with SBA-CGA and even step length and upright posture, several standing rest breaks, no LOB. Stair Climbing Assessment Evaluation Level of Assist On Stairs Contact Guard Assistance Devices Stair Climbing Assistive Devices Left Railing Right Railing Technique/Endurance Stair Climbing Direction Ascend and Descend Stair Climbing Technique Step to Step Number of Steps Climbed 3 Query Text: Stair Climbing Set # Repetitions (reps) 1 Comments Stair Climbing Comments Pt feeling more confident on stairs, step to gait pattern with CGA and min cues. PT-Balance Assessment Sitting Balance and Reactions Static Sitting Balance Ability Good Dynamic Sitting Balance Ability Good Standing Balance and Reactions Static Standing Balance Ability Good Dynamic Standing Balance Ability Fair M5 PT-IP Objective Assessments Start: 01/19/19 16:55 Freq: NEEDED Status: Active Protocol: Document 01/19/19 16:56 EA (Rec: 01/19/19 17:23 EA [id number]) Orientation Orientation/Cognition Level of Alertness Alert Orientation Name Age Language Function Ability No Deficits Noted Safety Awareness Understands Safety Issues Memory Description No Deficits Noted Gross Range of Motion Upper Extremity ROM Assessment Within Functional Limits Lower Extremity ROM Assessment Within Functional Limits Strength Upper Extremity Strength Assessment Within Functional Limits Lower Extremity Strength Assessment Within Functional Limits Coordination Assessment Gross Coordination Gross Coordination WNL Assessment Finger to Nose Test Normal Performance Pronation/Supination Test Normal Performance Foot Tapping Test Normal Performance Heel on Camp Test Normal Performance Sensation Assessment Sensation Gross Sensation WNL Light Touch Intact Proprioception (Position) Intact M6 PT-IP Treatment Start: 01/19/19 16:55 Freq: NEEDED Status: Active Protocol: Document 01/21/19 09:53 SA (Rec: 01/21/19 09:59 SA [id number]) Physical Therapy Treatment Exercises Exercises Ankle Pumps Gluteal Sets Education Education Provided Precautions Post-Op Packet Safety M7 PT-IP Assessment and Plan Start: 01/19/19 16:55 Freq: NEEDED Status: Active Protocol: Document 01/21/19 09:53 (Rec: 01/21/19 09:59 [id number]) PT Summary Assessment and Plan Potential Rehabilitation Potential Good Status of Condition at Evaluation Evolving Summary Assessment Summary Pt progressing well, wants to stay one more night in hospital, probable d/c tomorrow AM. Pt has and daughter at home for assistance. Frequency of Treatment Frequency Of Treatment Twice a Day Treatment Plan Physical Therapy Treatment Plan Bed Mobility Training Transfer Training Gait Training Post Op Education Discharge Planning Recommendations To Nursing Amount of Assist Needed 1 Person Assist Discharge Recommendations PT Discharge Recommendations Home with 24/ Assist
[2019-01-21] MEDS: FLUTICASONE 110MCG HFA 120 PUFF INH (10:01)
[2019-01-21 10:02] VITALS: PULSE 69; RESP 17; O2SAT 98
--- NOTE | 2019-01-21 10:38 | P.PN_ITS ---
Subjective Date Patient Seen: 01/21/19 Time Patient Seen: 10:37 Interval history: Hospital day 3, postop day 2 following L4-5, L5-S1 laminectomy, TLIF, cage, posterior screw fixation. patient is progressing with PT/OT. Still feels that she is not steady enough to be at home. Has been amena ing oxycodone for pain. Persaud catheter was DC. Exam Vital Signs (past 8 hours): - 01/21/19 06:31 01/21/19 08:00 01/21/19 10:02 Temperature 98.4 F 99.2 F Pulse Rate 71 72 69 Respiratory Rate 16 17 17 Blood Pressure 108/67 112/67 Pulse Oximetry 96 96 98 Oxygen Delivery Method Room Air Oxygen Flow Rate 0 Narrative Exam Narrative: Alert, oriented no acute distress sitting on the edge of bed. back. Dressing to lumbar area is dry with some areas of shadowing. No signs of infection or inflammation. Legs. No calf pain or swelling. Pulses and sensation of the lower leg symmetrical. She is able to do full leg extension from sitting position bilateral. Objective Labs Result Diagrams: 01/20/19 05:46 Assessment & Plan Post-op Postoperative Procedures Operation Date: 01/19/19 07:45 Actual Procedures Side Surgeon p L5-S1 Lumbar HWR/Reinsertion/Exploration/Repeat Laminectomy & repeat PSF,L4-5 TLIF Jasmyn Reyes MD Plan: Will have patient stay 1 more day and let her work with physical therapy and make sure pain is under control. Anticipate discharge home tomorrow if stable.
[2019-01-21 11:01] VITALS: BP 115/69; PULSE 65; RESP 18; TEMP 37.3; O2SAT 92
--- NOTE | 2019-01-21 15:28 | PT.IPTN ---
Current Diagnoses Radiculopathy, site unspecified (01/19/19) Other mechanical complication of other internal orthopedic devices, implants and grafts, initial encounter (01/19/19) Arthrodesis status (01/19/19) Surgery Performed Operation Date: 01/19/19 07:45 Actual Procedures p L5-S1 Lumbar HWR/Reinsertion/Exploration/Repeat Laminectomy & repeat PSF,L4-5 TLIF - Jasmyn Reyes MD Physical Therapy Treatment Note M2 PT-IP Current Condition Start: 01/19/19 16:55 Freq: NEEDED Status: Active Protocol: Document 01/19/19 16:56 EA (Rec: 01/19/19 17:23 EA [id number]) Physical Therapy Current Condition Current Condition Evaluation Date 01/19/19 Treatment Diagnosis s/p L4-L5, L5-S1, TLIF W/ POST INSTRU W/SCREWS Precautions Lumbar Precautions Log Roll No Twisting Limit Bending Lifting Restriction of 10 lbs Gait Belt above Incisional Area Weight Bearing Status Weight Bearing Status Weight Bear as Tolerated M3 PT-IP Subjective Start: 01/19/19 16:55 Freq: NEEDED Status: Active Protocol: Document 01/21/19 15:20 SA (Rec: 01/21/19 15:28 SA [id number]) Subjective Physical Therapy Visit Type Type Treatment Note Visit Start Time 14:10 Visit Stop Time 14:33 Total Visit Minutes 23 Number of ASSOCIATE MERCHANDISE PLANNER Visits 3 Physical Therapy Visit Comments Patient Comments Pt sleepy this afternoon but agreeable to PT. Therapy Pain Assessment Pain When Pain Assessed During Mobility Pain Present Pain Present Pain Reported Location Back Intensity 3 Scale Used Numeric (1 - 10) Pain Management Techniques Re-positioning Timing of Activity with Medications M4 PT-IP Mobility and Gait Start: 01/19/19 16:55 Freq: NEEDED Status: Active Protocol: Document 01/21/19 15:20 SA (Rec: 01/21/19 15:28 SA [id number]) PT-Bed Mobility Assessment Rolling Type of Rolling Log Rolling Roll to Left Level of Assist Standby Assistance Supine to Sit Supine to Sit Contact Guard Assistance Sit to Supine Sit to Supine Contact Guard Assistance Head of Bed Elevated Scooting Scooting to Edge of Bed Standby Assistance Scooting Up and Down in Bed Standby Assistance PT-Transfer Assessment Sit to and From Stand Sit to and from Stand Standby Assistance Equipment Transfer Assistive Device Gait Belt Front Wheeled Walker Orthotic/Prosthetic Devices or Brace: No Transfers Transfer Destination Bed Transfer Technique Stand Step Pivot Transfer Ability Level of Assist Standby Assistance Comments Mobility Comments Pt CGA with bed mobility and SBA with transfers and FWW, Pt tired this afternoon but mobilizing is becomiing easier and less painful. Gait Assessment Gait Gait Assistance Required: Standby Assistance Contact Guard Assist Distance (Feet) 175 Assistive Devices Assistive Device Gait Belt Front Wheeled Walker Orthotic/Prosthetic Devices or Brace: No Gait Deviations General Gait Pattern Within Normal Limits Comments Gait Comments Pt with improving gait quality and tolerance, uses FWW safely and no LOB. Stair Climbing Assessment Evaluation Level of Assist On Stairs Contact Guard Assistance Devices Stair Climbing Assistive Devices Left Railing Right Railing Technique/Endurance Stair Climbing Direction Ascend and Descend Stair Climbing Technique Step to Step Number of Steps Climbed 3 Query Text: Stair Climbing Set # Repetitions (reps) 1 Comments Stair Climbing Comments Pt able to safely ascend/ descend 3 steps with CGA. M5 PT-IP Objective Assessments Start: 01/19/19 16:55 Freq: NEEDED Status: Active Protocol: Document 01/19/19 16:56 EA (Rec: 01/19/19 17:23 EA [id number]) Orientation Orientation/Cognition Level of Alertness Alert Orientation Name Age Language Function Ability No Deficits Noted Safety Awareness Understands Safety Issues Memory Description No Deficits Noted Gross Range of Motion Upper Extremity ROM Assessment Within Functional Limits Lower Extremity ROM Assessment Within Functional Limits Strength Upper Extremity Strength Assessment Within Functional Limits Lower Extremity Strength Assessment Within Functional Limits Coordination Assessment Gross Coordination Gross Coordination WNL Assessment Finger to Nose Test Normal Performance Pronation/Supination Test Normal Performance Foot Tapping Test Normal Performance Heel on Camp Test Normal Performance Sensation Assessment Sensation Gross Sensation WNL Light Touch Intact Proprioception (Position) Intact M6 PT-IP Treatment Start: 01/19/19 16:55 Freq: NEEDED Status: Active Protocol: Document 01/21/19 15:20 SA (Rec: 01/21/19 15:28 SA [id number]) Physical Therapy Treatment Exercises Exercises Ankle Pumps Gluteal Sets Education Education Provided Precautions Post-Op Packet Safety M7 PT-IP Assessment and Plan Start: 01/19/19 16:55 Freq: NEEDED Status: Active Protocol: Document 01/21/19 15:20 SA (Rec: 01/21/19 15:28 SA [id number]) PT Summary Assessment and Plan Potential Rehabilitation Potential Good Status of Condition at Evaluation Evolving Summary Assessment Summary Pt progressing well, anticipate d/c home tomorrow. Frequency of Treatment Frequency Of Treatment Twice a Day Treatment Plan Physical Therapy Treatment Plan Bed Mobility Training Transfer Training Gait Training Post Op Education Discharge Planning Recommendations To Nursing Amount of Assist Needed 1 Person Assist Discharge Recommendations PT Discharge Recommendations Home with 24/ Assist
[2019-01-21 15:40] VITALS: BP 120/66; PULSE 70; RESP 16; TEMP 36.6; O2SAT 93
[2019-01-21] MEDS: MAGNESIUM HYDROXIDE 30 ML UDC PO (17:10)
[2019-01-21 19:40] VITALS: BP 124/72; PULSE 72; RESP 17; TEMP 36.4; O2SAT 92
--- NOTE | 2019-01-21 20:10 | PC.NURSE ---
dressing change 2009 dressing removed post shower. railroad incisions well approximated and free from signs/symptoms of infection/inflammation. island barrier dressing placed.
[2019-01-21] MEDS: SENNOSIDES 8.6 MG TABLET 17.2 MG PO (21:49)
[2019-01-22 00:10] VITALS: BP 123/67; PULSE 68; RESP 18; TEMP 37; O2SAT 96
--- NOTE | 2019-01-22 00:45 | PC.NURSE ---
2300- Pt POD#3 Lami & Tlift; new nylon barrier dressing applied after shower CDI; moving 1PA in room. Pt using home CPAP @ night; RA during the day w/ VSS. No IV access, aware, following postop protocol. Pt using PO Oxycodone for pain control & working w/ PT; plan to DC tomorrow. 0300- Pt up to bathroom 1PA, steady on her feet; denies any needs.
[2019-01-22 04:57] VITALS: BP 113/70; PULSE 66; RESP 16; TEMP 36.3; O2SAT 93
--- NOTE | 2019-01-22 07:45 | PM.DS.1 ---
History of Present Illness Date Patient Seen: 01/23/19 Chief complaint: [id number] Narrative: Patient seen bedside s/p L4-5 posterolateral and posterior interbody fusion with L5-S1 posterior non-segmental instrumentation removal, L5-S1 revision laminectomy with exploration of fusion, L4-5, L5-S1 posterior segmental instrumentation with pedicle screw placement, and L5-S1 posterolatearl fusion with Dr. Reyes on 01/19/19. Patient is POD #3. Patient is doing well, she has been moving with PT and her pain is better controlled today. She would like to go home. Denies N/V, SOB, cough. Discharge Providers Date of admission: 01/19/19 06:02 Discharge Date: 01/22/19 Primary care physician: Yi Zambrano MD Consults: 01/09/19 10:53 Consult to Respiratory Therapy Evaluate & Treat Comment: TLIF 01/15/19, Unknown if pt using CPAP Physician Instructions: Evaluate and treat 01/19/19 13:26 Consult to Occupational Therapy Evaluate & Treat Comment: Physician Instructions: Evaluate and treat Consult to Physical Therapy Evaluate & Treat Comment: Physician Instructions: Evaluate and Treat Discharge provider: Guadalupe Bach PA-C Summary Discharge Diagnosis: 1. Broken spine hardware lumbar spine 2. Delayed spinal fusion L5-S1. 3. L4-5, L5-S1 spinal stenosis 4. L4-5, L5-S1 spondylosis with radiculopathy Hospital Course: Patient was admitted to the hospital status post L4-5 posterolateral and posterior interbody fusion, L5-S1 posterior non-segmental instrumentation removal, L5-S1 revision laminectomy with exploration of fusion, L4-5, L5-S1 posterior segmental instrumentation with pedicle screw placement, and L5-S1 posterolatearl fusion on 01/19/19. Patient tolerated the procedure well with no major complications. They were transferred to the acute care floor where they were placed on the standard lumbar fusion post-operative pathway and protocol. They were seen by physical therapy who recommended that they be discharged home. They were stable and ready for discharge on 01/22/19 Exam Vital Signs (past 8 hours): Oxygen Delivery Method Room Air,CPAP Oxygen Flow Rate 0 Narrative Exam Narrative: Well-developed, well-nourished, no acute distress. Alert and oriented to person, place, and time. Dressing on lumbar spine is clean, dry, and intact with no signs of drainage. Minimal erythema and generalized swelling around the surgical site. Neurovascularly intact in bilateral lower extremities with soft and compressible calves. Range of motion intact bilateral lower extremities. Objective Labs Result Diagrams: 01/20/19 05:46 Discharge Plan Discharge Plan Patient Disposition: Home Discharge Med Rec/Prescriptions Prescriptions: New acetaminophen 325 mg Tablet 650 mg PO Q6HR PRN (Reason: Pain, Mild (1-3)) Qty: 0 RF: 0 hydroxyzine pamoate 25 mg Capsule 25 mg PO Q4HR PRN (Reason: Nausea And Vomiting) Qty: 40 RF: 0 oxycodone 5 mg tablet 5 mg PO Q4-6H PRN (Reason: pain) Qty: 40 RF: 0 Continued fluoxetine [Prozac] 40 MG capsule 80 mg PO QDAY Qty: 0 RF: 0 furosemide 20 MG tablet 40 mg PO QAM Qty: 0 RF: 0 esomeprazole magnesium [Nexium] 40 MG capsule,delayed release(DR/EC) 40 mg PO QAM Qty: 0 RF: 0 levothyroxine [Synthroid] 125 mcg Tablet 125 mcg PO DAILY RF: 0 cyclobenzaprine 10 mg Tablet 10 mg PO TID PRN (Reason: Muscle Spasm) RF: 0 isosorbide mononitrate 60 mg Tablet Extended Release 24 Hr 60 mg PO QAM RF: 0 simvastatin 20 mg Tablet 20 mg PO QAM RF: 0 omeprazole 20 mg Capsule,Delayed Release(Dr/Ec) 20 mg PO DAILY RF: 0 propranolol 20 mg Tablet 20 mg PO TID RF: 0 albuterol sulfate [ProAir HFA] 90 mcg/actuation Hfa Aerosol Inhaler 2 puff INHALATION Q4-6H PRN (Reason: sob) RF: 0 fluticasone propionate [Flonase Allergy Relief] 50 mcg/actuation [place],Suspension 2 spray INTRANASAL DAILY RF: 0 Flovent HFA 110 mcg/actuation Hfa Aerosol Inhaler 2 puff INHALATION QAM RF: 0 acetaminophen 325 mg Tablet 650 mg PO Q6HR PRN (Reason: Pain, Mild (1-3)) Qty: 0 RF: 0 docusate sodium 100 mg Capsule 100 mg PO BID Qty: 0 RF: 0 hydroxyzine pamoate 25 mg Capsule 25 mg PO Q4HR PRN (Reason: Nausea And Vomiting) Qty: 60 RF: 1 oxycodone 5 mg tablet 5 mg PO Q4-6H PRN (Reason: pain) Qty: 40 RF: 0 Follow up/Referrals: Yi Zambrano MD [Primary Care Provider] - Provider Discharge Instructions Diet: Diet as Tolerated Activity: Weightbearing as tolerated, no bending, lifting greater than 5 lbs, no twisting. Cold/Heat Therapy: Apply ice 20 minutes at a time as needed at least hourly while. Skin/Wound/Dressing Care Report to your healthcare provider any signs of infection, such as:: chills, fever, night sweats, increased pain, unusual drainage and unusual redness Dressing: Keep dressing clean, dry, and intact. Visit Report/Discharge Packet Instructions: Oxycodone, Hydroxyzine, DI for Transforaminal Lumbar Interbody Fusion Stand Alone Forms: Surgery Discharge Discharge Data Primary Care Provider: Yi Zambrano Attending Provider: Jasmyn Reyes Admit Date/Time: 01/19/19 06:02 Discharges patient from system. Discharge Date/Time: 01/22/19 10:31 Quality VTE Deep Vein Thrombosis/Pulmonary Embolism Present on Admission: No
[2019-01-22] MEDS: DOCUSATE 100 MG CAPSULE PO (08:16)
[2019-01-22] MEDS: FLUoxetine 20 MG CAPSULE 80 MG PO (08:16)
[2019-01-22] MEDS: FLUTICASONE 120 SPRAY/16 GM SPRAY.SUSP NASAL (08:17)
[2019-01-22] MEDS: FUROSEMIDE 40 MG TABLET PO (08:18)
[2019-01-22] MEDS: ISOSORBIDE MONONITRATE ER 30 MG TABLET 60 MG PO (08:18)
[2019-01-22] MEDS: FLUTICASONE 110MCG HFA 120 PUFF INH (08:18)
[2019-01-22] MEDS: LEVOTHYROXINE 125 MCG TABLET PO (08:18)
[2019-01-22] MEDS: SIMVASTATIN 20 MG TABLET PO (08:19)
[2019-01-22] MEDS: PROPRANOLOL 10 MG TABLET 20 MG PO (08:19)
[2019-01-22 08:39] VITALS: BP 108/76; PULSE 66; RESP 16; TEMP 36.6; O2SAT 95
--- NOTE | 2019-01-22 09:55 | PT.IPTN ---
Current Diagnoses Radiculopathy, site unspecified (01/19/19) Other mechanical complication of other internal orthopedic devices, implants and grafts, initial encounter (01/19/19) Arthrodesis status (01/19/19) Surgery Performed Operation Date: 01/19/19 07:45 Actual Procedures p L5-S1 Lumbar HWR/Reinsertion/Exploration/Repeat Laminectomy & repeat PSF,L4-5 TLIF - Jasmyn Reyes MD Physical Therapy Treatment Note M2 PT-IP Current Condition Start: 01/19/19 16:55 Freq: NEEDED Status: Discharge Protocol: Document 01/19/19 16:56 EA (Rec: 01/19/19 17:23 EA [id number]) Physical Therapy Current Condition Current Condition Evaluation Date 01/19/19 Treatment Diagnosis s/p L4-L5, L5-S1, TLIF W/ POST INSTRU W/SCREWS Precautions Lumbar Precautions Log Roll No Twisting Limit Bending Lifting Restriction of 10 lbs Gait Belt above Incisional Area Weight Bearing Status Weight Bearing Status Weight Bear as Tolerated M3 PT-IP Subjective Start: 01/19/19 16:55 Freq: NEEDED Status: Discharge Protocol: Document 01/22/19 09:55 GGD (Rec: 01/22/19 11:06 GGD [id number]) Subjective Physical Therapy Visit Type Type Patient Refusal Notes PT refused states that she is D/C and has no needs. PT Discharge Recommendations Home with 24/7 Assist
--- NOTE | 2019-01-22 10:24 | PC.NURSE ---
Discharge order received and patient ready for discharge to home with . VSS. Dressing to back changed to coversite dressing prior to discharge. Home care handouts and discharge instructions reviewed with patient and her , patient states understanding and has no further questions or concerns at this time. Patient states she had follow up appointments scheduled previously. Patient instructed to call her surgeon's office with any questions or concerns, or to report any signs or symptoms of infection. Patient escorted out via wheelchair with all belongings by [employer] to be discharged to home.
--- NOTE | 2019-01-23 08:37 | CM.DPNOTE ---
Late Entry/ DC Note: Pt discussed in multidisciplinary rounds yesterday morning. No barriers indicated to safe return home. No SW needs upon DC. JW
--- NOTE | 2019-01-23 09:03 | P.DS_ITS ---
History of Present Illness Date Patient Seen: 01/23/19 Chief complaint: [id number] [id number] Narrative: Patient seen bedside s/p L4-5 posterolateral and posterior interbody fusion with L5-S1 posterior non-segmental instrumentation removal, L5-S1 revision laminectomy with exploration of fusion, L4-5, L5-S1 posterior segmental instrumentation with pedicle screw placement, and L5-S1 posterolatearl fusion with Dr. Reyes on 01/19/19. Patient is POD #3. Patient is doing well, she has been moving with PT and her pain is better controlled today. She would like to go home. Denies N/V, SOB, cough. Discharge Providers Date of admission: 01/19/19 06:02 Discharge Date: 01/22/19 Primary care physician: Yi Zambrano MD Consults: 01/09/19 10:53 Consult to Respiratory Therapy Evaluate & Treat Comment: TLIF 01/15/19, Unknown if pt using CPAP Physician Instructions: Evaluate and treat 01/19/19 13:26 Consult to Occupational Therapy Evaluate & Treat Comment: Physician Instructions: Evaluate and treat Consult to Physical Therapy Evaluate & Treat Comment: Physician Instructions: Evaluate and Treat Discharge provider: Guadalupe Bach PA-C Summary Discharge Diagnosis: 1. Broken spine hardware lumbar spine 2. Delayed spinal fusion L5-S1. 3. L4-5, L5-S1 spinal stenosis 4. L4-5, L5-S1 spondylosis with radiculopathy Hospital Course: Patient was admitted to the hospital status post L4-5 posterol ateral and posterior interbody fusion, L5-S1 posterior non-segmental instrumentation removal, L5-S1 revision laminectomy with exploration of fusion, L4-5, L5-S1 posterior segmental instrumentation with pedicle screw placement, and L5-S1 posterolatearl fusion on 01/19/19. Patient tolerated the procedure well with no major complications. They were transferred to the acute care floor where they were placed on the standard lumbar fusion post-operative pathway and protocol. They were seen by physical therapy who recommended that they be discharged home. They were stable and ready for discharge on 01/22/19 Exam Vital Signs (past 8 hours): Oxygen Delivery Method Room Air,CPAP Oxygen Flow Rate 0 Narrative Exam Narrative: Well-developed, well-nourished, no acute distress. Alert and oriented to person, place, and time. Dressing on lumbar spine is clean, dry, and intact with no signs of drainage. Minimal erythema and generalized swelling around the surgical site. Neurovascularly intact in bilateral lower extremities with soft and compressible calves. Range of motion intact bilateral lower extremities. Objective Labs Result Diagrams: 01/20/19 05:46 Discharge Plan Discharge Plan Patient Disposition: Home Discharge Med Rec/Prescriptions Prescriptions: New acetaminophen 325 mg Tablet 650 mg PO Q6HR PRN (Reason: Pain, Mild (1-3)) Qty: 0 RF: 0 hydroxyzine pamoate 25 mg Capsule 25 mg PO Q4HR PRN (Reason: Nausea And Vomiting) Qty: 40 RF: 0 oxycodone 5 mg tablet 5 mg PO Q4-6H PRN (Reason: pain) Qty: 40 RF: 0 Continued fluoxetine [Prozac] 40 MG capsule 80 mg PO QDAY Qty: 0 RF: 0 furosemide 20 MG tablet 40 mg PO QAM Qty: 0 RF: 0 esomeprazole magnesium [Nexium] 40 MG capsule,delayed release(DR/EC) 40 mg PO QAM Qty: 0 RF: 0 levothyroxine [Synthroid] 125 mcg Tablet 125 mcg PO DAILY RF: 0 cyclobenzaprine 10 mg Tablet 10 mg PO TID PRN (Reason: Muscle Spasm) RF: 0 isosorbide mononitrate 60 mg Tablet Extended Release 24 Hr 60 mg PO QAM RF: 0 simvastatin 20 mg Tablet 20 mg PO QAM RF: 0 omeprazole 20 mg Capsule,Delayed Release(Dr/Ec) 20 mg PO DAILY RF: 0 propranolol 20 mg Tablet 20 mg PO TID RF: 0 albuterol sulfate [ProAir HFA] 90 mcg/actuation Hfa Aerosol Inhaler 2 puff INHALATION Q4-6H PRN (Reason: sob) RF: 0 fluticasone propionate [Flonase Allergy Relief] 50 mcg/actuation [place],Suspension 2 spray INTRANASAL DAILY RF: 0 Flovent HFA 110 mcg/actuation Hfa Aerosol Inhaler 2 puff INHALATION QAM RF: 0 acetaminophen 325 mg Tablet 650 mg PO Q6HR PRN (Reason: Pain, Mild (1-3)) Qty: 0 RF: 0 docusate sodium 100 mg Capsule 100 mg PO BID Qty: 0 RF: 0 hydroxyzine pamoate 25 mg Capsule 25 mg PO Q4HR PRN (Reason: Nausea And Vomiting) Qty: 60 RF: 1 oxycodone 5 mg tablet 5 mg PO Q4-6H PRN (Reason: pain) Qty: 40 RF: 0 Follow up/Referrals: Yi Zambrano MD [Primary Care Provider] - Provider Discharge Instructions Diet: Diet as Tolerated Activity: Weightbearing as tolerated, no bending, lifting greater than 5 lbs, no twisting. Cold/Heat Therapy: Apply ice 20 minutes at a time as needed at least hourly while. Skin/Wound/Dressing Care Report to your healthcare provider any signs of infection, such as:: chills, fever, night sweats, increased pain, unusual drainage and unusual redness Dressing: Keep dressing clean, dry, and intact. Visit Report/Discharge Packet Instructions: Oxycodone, Hydroxyzine, DI for Transforaminal Lumbar Interbody Fusion Stand Alone Forms: Surgery Discharge Discharge Data Primary Care Provider: Yi Zambrano Attending Provider: Jasmyn Reyes Admit Date/Time: 01/19/19 06:02 Discharges patient from system. Discharge Date/Time: 01/22/19 10:31 Quality VTE Deep Vein Thrombosis/Pulmonary Embolism Present on Admission: No
--- NOTE | 2019-01-23 11:22 | CM.DPNOTE ---
TC from [facility] requesting DC date and dispo, provided as DC 4, home. JW
== END 2019-01-22 10:31 | disposition home or self-care (01) | DRG 304 ==
PROVIDERS: Admitting Provider Orthopaedic Surgery Orthopaedic Surgery of the Spine; Family Provider Family Medicine; PCP Family Medicine; Visit Provider Orthopaedic Surgery Orthopaedic Surgery of the Spine
PROC: 0SG00AJ Fusion of Lumbar Vertebral Joint with Interbody Fusion Device, Posterior Approach, Anterior Column, Open Approach (ICD-10-PCS; principal; 2019-01-19 07:45)
DX: T84.018A Broken internal joint prosthesis, other site, initial encounter (principal); M47.26 Other spondylosis with radiculopathy, lumbar region; M48.061 Spinal stenosis, lumbar region without neurogenic claudication; E66.01 Morbid (severe) obesity due to excess calories; Z68.42 Body mass index [BMI] 45.0-49.9, adult; M96.0 Pseudarthrosis after fusion or arthrodesis; Y99.0 Civilian activity done for income or pay
CPT/HCPCS: 36415; 72100; 76000; 85014; 85018; 94640; 94760; 97116; 97161; 97165; 97530; 97535; C1776; C9290; J0131; J0330; J0690; J1100; J1170; J2310; J2405; J2704

== ENCOUNTER 2019-02-01 09:29 | Emergency (ER) | payer OTHER, SELFPAY ==
[2019-01-19 06:37] VITALS: BMI 47.7
[2019-02-01 09:41] VITALS: BP 160/80; PULSE 78; RESP 15; TEMP 36.5; O2SAT 96; BMI 45.3
--- NOTE | 2019-02-01 10:20 | ED.BACK ---
HPI - Back Pain/Injury General Chief Complaint: Back Pain/Injury Stated Complaint: Thinks infection on back,chills,recent surgery Time Seen by Provider: 02/01/19 10:17 Source: patient Mode of arrival: ambulatory Limitations: no limitations History of Present Illness HPI Narrative: Patient is a 58-year-old female who presents with worsening back pain. she actually had surgery 01/19/2019. She was seen for followup 4 days ago and started on an antibiotic which by description of it seems to be Keflex to take 4 times a day. She is having increasing pain some fevers although she is afebrile now. It is erythematous minimal drainage. She feels a burning in the back. She has no numbness or tingling in her extremities. no loss of bowel or bladder habits. Overall able to ambulate and move around without difficulty. MD Complaint: back pain Duration: constant Related Data Home Medications Medication Instructions Recorded Confirmed esomeprazole magnesium [Nexium] 40 mg PO QAM #0 07/05/12 01/19/19 fluoxetine [Prozac] 80 mg PO QDAY #0 07/05/12 01/19/19 furosemide 40 mg PO QAM #0 07/05/12 01/19/19 Flovent HFA 2 puff INHALATION QAM 10/09/18 01/19/19 albuterol sulfate [ProAir HFA] 2 puff INHALATION Q4-6H PRN 10/09/18 01/19/19 cyclobenzaprine 10 mg PO TID PRN 10/09/18 01/19/19 fluticasone propionate [Flonase 2 spray INTRANASAL DAILY 10/09/18 01/19/19 Allergy Relief] isosorbide mononitrate 60 mg PO QAM 10/09/18 01/19/19 levothyroxine [Synthroid] 125 mcg PO DAILY 10/09/18 01/19/19 omeprazole 20 mg PO DAILY 10/09/18 01/19/19 propranolol 20 mg PO TID 10/09/18 01/19/19 simvastatin 20 mg PO QAM 10/09/18 01/19/19 Previous Rx's Medication Instructions Recorded acetaminophen 650 mg PO Q6HR PRN #0 tab 10/14/18 docusate sodium 100 mg PO BID #0 cap 10/14/18 hydroxyzine pamoate 25 mg PO Q4HR PRN #60 cap 10/14/18 oxycodone 5 mg PO Q4-6H PRN #40 tab 10/14/18 acetaminophen 650 mg PO Q6HR PRN #0 tab 01/22/19 hydroxyzine pamoate 25 mg PO Q4HR PRN #40 cap 01/22/19 oxycodone 5 mg PO Q4-6H PRN #40 tab 01/22/19 sulfamethoxazole-trimethoprim 1 tab PO BID #20 tab 02/01/19 [Bactrim DS] Allergies Allergy/AdvReac Type Severity Reaction Status Date / Time erythromycin base Allergy Severe Hives, Verified 02/01/19 09:41 [ERYTHROMYCIN BASE] syncope Review of Systems Review of Systems ROS Unobtainable: All systems reviewed & are unremarkable except as noted in HPI and below Constitutional Reports body ache(s), Reports chills and Reports fever(s) Eyes Denies change in vision, Denies eye discharge, Denies irritation and Denies loss of vision ENT Ears, Nose, Mouth, and Throat: Denies change in voice, Denies neck pain and Denies sore throat Cardiovascular Denies chest pain, Denies irregular heart rhythm, Denies lightheadedness, Denies palpitations and Denies orthopnea Gastrointestinal Gastrointestinal: Denies abdominal pain, Denies change in bowel habits, Denies diarrhea, Denies nausea and Denies vomiting Genitourinary Denies hematuria, Denies flank pain, Denies urinary incontinence and Denies urinary urgency Musculoskeletal Reports as per HPI and Denies neck pain Integumentary/Breasts Reports as per HPI, Reports erythema and Reports rash Neurologic Denies loss of vision Endocrine Denies palpitations [facility] Medical History Arthritis (Acute) Chronic neck and back pain (Acute) Depression (Acute) Difficulty swallowing (Acute) Easy bruisability (Acute) Elbow fracture, right (Acute) GERD (gastroesophageal reflux disease) (Acute) Generalized edema (Acute) HTN (hypertension) (Acute) History of hysterectomy (Acute) Hyperlipidemia (Acute) Numbness and tingling (Acute) Pinched nerve (Acute) Severe anxiety (Acute) Shortness of breath (Acute) Sleep apnea (Acute) Surgical History History of arthroplasty of right knee (Acute) History of bilateral tubal ligation (Acute) History of lumbar spinal fusion (Acute 10/13/18) Hx of cholecystectomy (Acute) Hx of hernia repair (Acute) Hx of partial thyroidectomy (Acute) Hx of tonsillectomy (Acute) S/P foot surgery, right (Acute) Social History household members: spouse, family and children Smoking Status: Never smoker alcohol intake: current Social History household members: spouse, family and children Smoking Status: Never smoker alcohol intake: current Exam Initial Vital Signs Initial Vital Signs: Vital Signs Temperature 97.7 F 02/01/19 09:41 Pulse Rate 78 02/01/19 09:41 Respiratory Rate 15 02/01/19 09:41 Blood Pressure 160/80 H 02/01/19 09:41 Pulse Oximetry 96 02/01/19 09:41 GENERAL: Overweight well-appearing female no acute distress and in no acute distress. HEENT: Head atraumatic,EOMI, pupils reactive, face symmetric CARDIOVASCULAR: Regular rate and rhythm without murmurs, rubs or gallops. RESPIRATORY: Breath sounds equal bilaterally, no wheezes rales or rhonchi. ABDOMEN: Soft, nontender. Normoactive bowel sounds all 4 quadrants. No guarding or rebound. BACK: Incision sites noted she does have some erythema and some crusting over of areas. Slightly tender to touch no significant swelling EXTREMITIES: Normal range of motion, no clubbing or edema. Neurovascularly intact NEUROLOGICAL: Alert and oriented x4.Normal gait and speech. Cranial nerves II through XII grossly intact. strength equal in lower extremities sensation intact in lower extremities SKIN: Erythema at the incision site as described above no other rashes appreciated Course Orders Ordered: ED Orders 02/01/19 12:24 Blood Culture Stat Complete Blood Count AUTO DIFF Stat Comprehensive Metabolic Panel Stat Lactate (Lactic Acid) Stat Procalcitonin Stat Discontinued Medications Sodium Chloride (Normal Saline 0.9%) 1,000 mls @ 1,000 mls/hr IV BOLUS ONE Stop: 02/01/19 11:23 Last Infusion: 02/01/19 13:15 Dose: 0 mls/hr Admin: 02/01/19 12:23 Dose: 1,000 mls/hr Ketorolac Tromethamine (Toradol) 30 mg IV NOW ONE Stop: 02/01/19 13:05 Last Admin: 02/01/19 13:07 Dose: 30 mg Consultations Consultation #1: Dr. Mark, orthopedics has been updated patient's symptoms test results. Agrees with changing antibiotic to Bactrim and close follow-up in clinic tomorrow. Vital Signs - 8 hr 02/01/19 13:00 02/01/19 14:00 Pulse Rate 76 77 Respiratory Rate 12 13 Blood Pressure 143/78 H Blood Pressure [Left Arm] 143/79 H Pulse Oximetry 99 99 MDM - Back Pain/Injury Lab Data Attestation: I reviewed the patient's lab results. Result diagrams: 02/01/19 12:24 02/01/19 12:24 Lab Results 02/01/19 02/01/19 02/01/19 Range/Units 12:24 12:24 12:24 WBC 10.3 (4.5-11.0) X10^3/uL RBC 4.52 (4.0-5.2) X10^6/uL Hgb 12.4 (12.0-16.0) g/dL Hct 37.8 (36-46) % MCV 83.7 (80-100) fL MCH 27.4 (26-34) PG MCHC 32.8 (30-36) % RDW 14.8 (11.6-14.8) % Plt Count 391 (150-400) X10^3/uL Neut % (Auto) 60.3 (50-75) % Lymph % (Auto) 26.8 (25-40) % [place] % (Auto) 6.0 (3-14) % Eos % (Auto) 5.8 H (2-4) % Baso % (Auto) 1.1 (0-2) % Neut # (Auto) 6200 (0899-6702) /uL Lymph # (Auto) 2800 (6082-5996) /uL [place] # (Auto) 600 (0-900) /uL Eos # (Auto) 600 H (0-450) /uL Baso # (Auto) 100 (0-100) /uL Sodium 135 L (137-145) mmol/L Potassium 4.0 (3.4-5.1) mmol/L Chloride 99 (98-107) mmol/L Carbon Dioxide 29 (22-32) mmol/L BUN 11 (7-17) mg/dL Creatinine 0.70 (0.52-1.04) mg/dL Estimated GFR > 60.0 (>60) mL/min BUN/Creatinine Ratio 15.7 (6-22) Glucose 87 (80-110) mg/dL Lactate (0.7-2.1) mmol/L Calcium 9.2 (8.4-10.2) mg/dL Total Bilirubin 0.2 (0.2-1.3) mg/dL AST 22 (14-36) IU/L ALT 35 (9-52) IU/L Alkaline Phosphatase 212 H (38-126) U/L Total Protein 7.4 (6.3-8.2) g/dL Albumin 4.0 (3.5-5.0) g/dL Globulin 3.4 (1.7-4.1) g/dL Albumin/Globulin Ratio 1.2 (1.0-2.8) Procalcitonin 1.12 H (<0.5) ng/mL 02/01/19 Range/Units 12:24 WBC (4.5-11.0) X10^3/uL RBC (4.0-5.2) X10^6/uL Hgb (12.0-16.0) g/dL Hct (36-46) % MCV (80-100) fL MCH (26-34) PG MCHC (30-36) % RDW (11.6-14.8) % Plt Count (150-400) X10^3/uL Neut % (Auto) (50-75) % Lymph % (Auto) (25-40) % [place] % (Auto) (3-14) % Eos % (Auto) (2-4) % Baso % (Auto) (0-2) % Neut # (Auto) (1318-8353) /uL Lymph # (Auto) (2927-0258) /uL [place] # (Auto) (0-900) /uL Eos # (Auto) (0-450) /uL Baso # (Auto) (0-100) /uL Sodium (137-145) mmol/L Potassium (3.4-5.1) mmol/L Chloride (98-107) mmol/L Carbon Dioxide (22-32) mmol/L BUN (7-17) mg/dL Creatinine (0.52-1.04) mg/dL Estimated GFR (>60) mL/min BUN/Creatinine Ratio (6-22) Glucose (80-110) mg/dL Lactate 0.9 (0.7-2.1) mmol/L Calcium (8.4-10.2) mg/dL Total Bilirubin (0.2-1.3) mg/dL AST (14-36) IU/L ALT (9-52) IU/L Alkaline Phosphatase (38-126) U/L Total Protein (6.3-8.2) g/dL Albumin (3.5-5.0) g/dL Globulin (1.7-4.1) g/dL Albumin/Globulin Ratio (1.0-2.8) Procalcitonin (<0.5) ng/mL Urine Dip Bedside Urine Glucose Negative Bedside Urine Bilirubin - Negative Bedside Urine Ketone - Negative Urine Specific [place] 1.015 Bedside Urine Occult Blood - Negative Bedside Urine pH 7.5 Bedside Urine Protein - Negative Bedside Urine Urobilinogen +/- 1mg Bedside Urine Nitrite - Negative Bedside Urine Leukocytes - Negative Esterase MDM Narrative Medical decision making narrative: Patient overall appears well she does not appear septic. She does have some erythema and crusting over on her incision sites. I do not believe this to be a hardware infection at this time. She has neurologically intact no significant or severe back pain she seems comfortable. At this time I agree with changing antibiotic to Bactrim. Patient will call the office tomorrow in follow-up. Discharge Plan Departure Patient Disposition: Home Clinical Impression: Cellulitis Qualifiers: Site of cellulitis: unspecified site Qualified Code(s): L03.90 - Cellulitis, unspecified Discharge Date/Time: 02/01/19 14:00 Interventions: ED Discharge Assessment Last Done: 02/01/19 14:00 Instructions: DI for Cellulitis -- Adult Activity Restrictions/Additional Instructions: *You have been diagnosed with cellulitis *What to do: Looks like infection of the skin at this time I do not think infection of deep hardware *Continue to take medications as directed -stop taking Keflex/cephalexin -start taking Bactrim DS 1 tablet twice daily for 10 days *Follow up with Dr. Eaton or partner tomorrow. Call the office 1st thing in the morning *Return to ER if you should have fever, increasing redness or drainage or any new, worsening or concerning symptoms Prescriptions: New sulfamethoxazole-trimethoprim [Bactrim DS] 800-160 mg tablet 1 tab PO BID Qty: 20 RF: 0 No Action fluoxetine [Prozac] 40 MG capsule 80 mg PO QDAY Qty: 0 RF: 0 furosemide 20 MG tablet 40 mg PO QAM Qty: 0 RF: 0 esomeprazole magnesium [Nexium] 40 MG capsule,delayed release(DR/EC) 40 mg PO QAM Qty: 0 RF: 0 levothyroxine [Synthroid] 125 mcg Tablet 125 mcg PO DAILY RF: 0 cyclobenzaprine 10 mg Tablet 10 mg PO TID PRN (Reason: Muscle Spasm) RF: 0 isosorbide mononitrate 60 mg Tablet Extended Release 24 Hr 60 mg PO QAM RF: 0 simvastatin 20 mg Tablet 20 mg PO QAM RF: 0 omeprazole 20 mg Capsule,Delayed Release(Dr/Ec) 20 mg PO DAILY RF: 0 propranolol 20 mg Tablet 20 mg PO TID RF: 0 albuterol sulfate [ProAir HFA] 90 mcg/actuation Hfa Aerosol Inhaler 2 puff INHALATION Q4-6H PRN (Reason: sob) RF: 0 fluticasone propionate [Flonase Allergy Relief] 50 mcg/actuation [place],Suspension 2 spray INTRANASAL DAILY RF: 0 Flovent HFA 110 mcg/actuation Hfa Aerosol Inhaler 2 puff INHALATION QAM RF: 0 acetaminophen 325 mg Tablet 650 mg PO Q6HR PRN (Reason: Pain, Mild (1-3)) Qty: 0 RF: 0 docusate sodium 100 mg Capsule 100 mg PO BID Qty: 0 RF: 0 hydroxyzine pamoate 25 mg Capsule 25 mg PO Q4HR PRN (Reason: Nausea And Vomiting) Qty: 60 RF: 1 oxycodone 5 mg tablet 5 mg PO Q4-6H PRN (Reason: pain) Qty: 40 RF: 0 acetaminophen 325 mg Tablet 650 mg PO Q6HR PRN (Reason: Pain, Mild (1-3)) Qty: 0 RF: 0 hydroxyzine pamoate 25 mg Capsule 25 mg PO Q4HR PRN (Reason: Nausea And Vomiting) Qty: 40 RF: 0 oxycodone 5 mg tablet 5 mg PO Q4-6H PRN (Reason: pain) Qty: 40 RF: 0 Referrals: Howells,Yi, MD [Primary Care Provider] - Jasmyn Reyes MD [Family Provider] -
[2019-02-01] MEDS: SODIUM CHLORIDE 0.9% 1,000 ML 1000 ML IV (12:23)
[2019-02-01 12:37] LABS: Add Manual Diff / Slide Review NO; Basophils Absolute Auto 100 /uL (0-100); Basophils Percent Auto 1.1 % (0-2); Eosinophils Absolute Auto 600 /uL (0-450); Eosinophils Percent Auto 5.8 % (2-4); Hematocrit 37.8 % (36-46); Hemoglobin 12.4 g/dL (12.0-16.0); Lymphocytes Absolute Auto 2800 /uL (1100-4500); Lymphocytes Percent Auto 26.8 % (25-40); Mean Corpuscular HGB Conc 32.8 % (30-36); Mean Corpuscular Hemoglobin 27.4 PG (26-34); Mean Corpuscular Volume 83.7 fL (80-100); Monocytes Absolute Auto 600 /uL (0-900); Neutrophils Absolute Auto 6200 /uL (1500-7000); Neutrophils Percent Auto 60.3 % (50-75); Platelet Count 391 X10^3/uL (150-400); Red Blood Cell Count 4.52 X10^6/uL (4.0-5.2); Red Cell Distribution Width 14.8 % (11.6-14.8); White Blood Cell Count 10.3 X10^3/uL (4.5-11.0)
[2019-02-01 12:47] LABS: Alanine Aminotransferase 35 IU/L (9-52); Albumin Globulin Ratio 1.2 (1.0-2.8); Alkaline Phosphatase 212 U/L (38-126); Aspartate Aminotransferase 22 IU/L (14-36); BUN Creatinine Ratio 15.7 (6-22); Bilirubin Total 0.2 mg/dL (0.2-1.3); Blood Urea Nitrogen 11 mg/dL (7-17); Calcium 9.2 mg/dL (8.4-10.2); Carbon Dioxide 29 mmol/L (22-32); Chloride 99 mmol/L (98-107); Estimated Glomerular Filt Rate > 60.0 mL/min (>60); Globulin 3.4 g/dL (1.7-4.1); Glucose 87 mg/dL (80-110); HEMOLYSIS < 15 (0-50); Lactate (Lactic Acid) 0.9 mmol/L (0.7-2.1); Sodium 135 mmol/L (137-145); Total Protein 7.4 g/dL (6.3-8.2)
[2019-02-01 13:00] VITALS: BP 143/79; PULSE 76; RESP 12; O2SAT 99
[2019-02-01] MEDS: KETOROLAC 60 MG/2 ML VIAL 30 MG IV (13:07)
[2019-02-01 13:23] LABS: Procalcitonin 1.12 ng/mL (<0.5)
[2019-02-01 14:00] VITALS: BP 143/78; PULSE 77; RESP 13; O2SAT 99
== END 2019-02-01 14:00 | disposition home or self-care (01) ==
PROVIDERS: Emergency Provider Emergency Medicine; Family Provider Orthopaedic Surgery Orthopaedic Surgery of the Spine; PCP Family Medicine
DX: L03.90 Cellulitis, unspecified (principal); I10 Essential (primary) hypertension; L53.9 Erythematous condition, unspecified; Z98.890 Other specified postprocedural states; Y99.0 Civilian activity done for income or pay
CPT/HCPCS: 36415; 80053; 81003; 83605; 84145; 85025; 87040; 96361; 96374; 99283; 99284; J1885

== ENCOUNTER 2020-02-02 10:00 | Emergency (ER) | payer OTHER, SELFPAY ==
[2019-01-19 06:37] VITALS: BMI 47.7
[2020-02-02 10:14] VITALS: BP 176/74; PULSE 66; RESP 13; TEMP 36.4; O2SAT 98
--- NOTE | 2020-02-02 10:28 | DI.RAD.S_ITS ---
PROCEDURE: XR WRIST RT MIN 3V INDICATIONS: fall, pain TECHNIQUE: 4 views of the wrist were acquired. COMPARISON: None. FINDINGS: Bones: Focal irregularity is seen involving the distal radial aspect of the scaphoid, which is attributed to an acute fracture. Prominent degenerative changes are seen, with narrowing and irregularity with fragmented osteophyte formation. No suspicious lytic or blastic lesions are seen. Soft tissues: No suspicious soft tissue calcifications. IMPRESSION: There is a mildly displaced fracture seen involving the distal aspect of the scaphoid. Please correlate with focal tenderness. If it would be helpful for clinical management decision making, please consider a dedicated wrist CT for further evaluation. Orthopedic surgery consultation is recommended. Relatively prominent underlying degenerative changes are seen. Dictated by: Jose Garcia M.D. on 02/02/2020 at 9:50 Approved by: Jose Garcia M.D. on 02/02/2020 at 9:52
--- NOTE | 2020-02-02 10:28 | DI.RAD.S_ITS ---
PROCEDURE: XR LUMBAR SPINE 2-3V INDICATIONS: fall, pain TECHNIQUE: 2 views of the lumbar spine were acquired. COMPARISON: [facility], CR, XR WRIST RT MIN 3V, 02/02/2020, 10:31. [facility], MR, MR LUMBAR SPINE WO CON, 03/26/2018, 10:08. [facility], CR, XR LUMBAR SPINE 2-3V, 10/13/2018, 15:03. [facility], CR, XR LUMBAR SPINE 2-3V, 01/19/2019, 10:33. FINDINGS: Bones: Postoperative changes are seen, with bilateral pedicle screws at the L4, L5, and S1 levels. The screws appear well placed. Vertical fixation rods are seen. Disc spacers are seen at L4-L5 and L5-S1. No findings of hardware failure or hardware loosening are seen. 5 nonrib-bearing, lumbar type vertebral bodies are seen. Mild retrolisthesis is seen at L1-L2. Grade 1 anterolisthesis is seen at the L5-S1 level. No acute appearing fractures are seen. Chronic anterior deformity can be seen at L1. No suspicious lytic or blastic lesions can be seen. Soft tissues: Overlying bowel gas pattern is normal. No suspicious soft tissue calcifications. Laparoscopic anchors can be seen. IMPRESSION: Unremarkable lumbosacral fixation hardware. Chronic L1 anterior wedge deformity. Mild L1-L2 retrolisthesis. Grade 1 L5-S1 anterolisthesis. Dictated by: Jose Garcia M.D. on 02/02/2020 at 9:55 Approved by: Jose Garcia M.D. on 02/02/2020 at 9:58
[2020-02-02] MEDS: ACETAMINOPHEN 325 MG TABLET PO (10:35)
[2020-02-02] MEDS: IBUPROFEN 400 MG TABLET PO (10:35)
--- NOTE | 2020-02-02 10:39 | ED.FALL ---
HPI - Fall General Chief Complaint: Fall Stated Complaint: Fell at work yesterday rt hand/lower back Time Seen by Provider: 02/02/20 10:03 Source: patient Mode of arrival: Ambulatory History of Present Illness HPI Narrative: 59-year-old woman with a history of reflux, hypertension, hyperlipidemia, hypothyroidism, depression and anxiety with low back surgery a year ago presents after falling at work yesterday. She reports going to step up onto a curb and missing the step or slipping she had a twisting turning fall landing on her right forearm and hand and then on her right hip. She was able to get up, took some Tylenol last night but found that was not particularly helpful. She did ice the wrist but she is complaining of tingling in all fingers on the right side. She has an abrasion to the elbow on the right. She is complaining of increased low back pain around her surgical site. She is able to walk with a somewhat antalgic gait. Related Data Home Medications Medication Instructions Recorded Confirmed esomeprazole magnesium [Nexium] 40 mg PO QAM #0 07/05/12 01/19/19 fluoxetine [Prozac] 80 mg PO QDAY #0 07/05/12 01/19/19 furosemide 40 mg PO QAM #0 07/05/12 01/19/19 Flovent HFA 2 puff INHALATION QAM 10/09/18 01/19/19 albuterol sulfate [ProAir HFA] 2 puff INHALATION Q4-6H PRN 10/09/18 01/19/19 cyclobenzaprine 10 mg PO TID PRN 10/09/18 01/19/19 fluticasone propionate [Flonase 2 spray INTRANASAL DAILY 10/09/18 01/19/19 Allergy Relief] isosorbide mononitrate 60 mg PO QAM 10/09/18 01/19/19 levothyroxine [Synthroid] 125 mcg PO DAILY 10/09/18 01/19/19 omeprazole 20 mg PO DAILY 10/09/18 01/19/19 propranolol 20 mg PO TID 10/09/18 01/19/19 simvastatin 20 mg PO QAM 10/09/18 01/19/19 Previous Rx's Medication Instructions Recorded acetaminophen 650 mg PO Q6HR PRN #0 tab 10/14/18 docusate sodium 100 mg PO BID #0 cap 10/14/18 hydroxyzine pamoate 25 mg PO Q4HR PRN #60 cap 10/14/18 oxycodone 5 mg PO Q4-6H PRN #40 tab 10/14/18 acetaminophen 650 mg PO Q6HR PRN #0 tab 01/22/19 hydroxyzine pamoate 25 mg PO Q4HR PRN #40 cap 01/22/19 oxycodone 5 mg PO Q4-6H PRN #40 tab 01/22/19 sulfamethoxazole-trimethoprim 1 tab PO BID #20 tab 02/01/19 [Bactrim DS] Allergies Allergy/AdvReac Type Severity Reaction Status Date / Time erythromycin base Allergy Severe Hives, Verified 02/01/19 09:41 [ERYTHROMYCIN BASE] syncope Review of Systems Review of Systems Narrative: Pertinent positive and negative findings as per HPI Remainder of review of systems is otherwise unremarkable for Constitutional: Fevers, chills, weakness ENT: No sore throat, neck pain, ear pain CV: Chest pain, palpitations, GI: Nausea, vomiting, diarrhea, change in bowel habits, black or bloody stools : Dysuria, hematuria, flank pain MS: Muscle weakness, numbness, joint swelling or warmth Skin: Rashes, nonhealing lesions Neuro: Syncope, dizziness, tingling Endocrine: Fatigue, heat or cold intolerance, very dry skin Heme: Easy bruising or bleeding Allergy: Seasonal rhinorrhea, itchy eyes Patient History Social History household members: spouse, family and children Smoking Status: Never smoker alcohol intake: current Smoking Status: Never smoker alcohol intake frequency: holidays/special occasions only Substance Use Type: does not use Exam Narrative Exam Narrative: General: Healthy appearing, in no acute distress. Able to give a complete and coherent history. Well-nourished well-developed HEENT: Moist mucous membranes, normal sclera with reactive pupils, Neck: supple Respiratory: Lungs are clear to auscultation, no wheezing no rales no rhonchi. Full and symmetrical air movement Cardiac: Regular rate and rhythm no murmurs no bruits Abdomen: Soft nontender good bowel tones, no flank pain Skin: Warm and dry, no rashes. Minor abrasion on the right elbow Neurologic: Grossly neurologically intact with no obvious asymmetries or abnormalities Extremities: Right forearm and hand are edematous without significant hematoma or contusion. He has got some minor tenderness in the snuffbox but no other bony Point prominence tenderness. 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 Spine: Minor point tenderness at approximately L3 with no significant paraspinous spasm or contusion Psych: Cooperative, appropriate insight and affect Initial Vital Signs Initial Vital Signs: Vital Signs Temperature 97.6 F 02/02/20 10:14 Pulse Rate 66 02/02/20 10:14 Respiratory Rate 13 02/02/20 10:14 Blood Pressure 176/74 H 02/02/20 10:14 Pulse Oximetry 98 02/02/20 10:14 Course Orders Ordered: ED Orders 02/02/20 10:28 XR lumbar spine 2-3V Stat XR wrist RT min 3V Stat 02/02/20 12:20 CT UE RT wo con Stat Discontinued Medications Acetaminophen (Tylenol) 325 mg PO NOW ONE Stop: 02/02/20 10:31 Last Admin: 02/02/20 10:35 Dose: 325 mg Documented by: LALITHA Ibuprofen (Advil) 400 mg PO NOW ONE Stop: 02/02/20 10:31 Last Admin: 02/02/20 10:35 Dose: 400 mg Documented by: LALITHA Vital Signs Vital signs: Vital Signs - 8 hr 02/02/20 10:14 Temperature 97.6 F Pulse Rate 66 Respiratory Rate 13 Blood Pressure 176/74 H Pulse Oximetry 98 MDM - Fall Medical Records Attestation: I reviewed the patient's medical records. Lab Data Attestation: I reviewed the patient's lab results. Imaging Data X-ray wrist: Radiologist's Impression: IMPRESSION: There is a mildly displaced fracture seen involving the distal aspect of the scaphoid. Please correlate with focal tenderness. If it would be helpful for clinical management decision making, please consider a dedicated wrist CT for further evaluation. Orthopedic surgery consultation is recommended. Relatively prominent underlying degenerative changes are seen. Dictated by: Jose Garcia M.D. on 02/02/2020 at 9:50 X-ray lumbar spine: Radiologist's Impression: IMPRESSION: Unremarkable lumbosacral fixation hardware. Chronic L1 anterior wedge deformity. Mild L1-L2 retrolisthesis. Grade 1 L5-S1 anterolisthesis. Dictated by: Jose Garcia M.D. on 02/02/2020 at 9:[address]: Radiologist's Impression: General: Healthy appearing, in no acute distress. Able to give a complete and coherent history. Well-nourished well-developed HEENT: Moist mucous membranes, normal sclera with reactive pupils, Neck: No JVD, supple Respiratory: Lungs are clear to auscultation, no wheezing no rales no rhonchi. Full and symmetrical air movement Cardiac: Regular rate and rhythm no murmurs no bruits Abdomen: Soft nontender good bowel tones, no flank pain Skin: Warm and dry, no rashes Neurologic: Grossly neurologically intact with no obvious asymmetries or abnormalities Extremities: No trauma, well perfused Psych: Cooperative, appropriate insight and affect MDM Narrative Medical decision making narrative: Patient stumbled and fell while stepping up over a curb landed on her right wrist with no evidence of fracture per CT scan but edema suggesting mild strain. Twisting turning injury to the low back with x-rays indicating no damage to any of the previous hardware and acute low back strain. Patient is safe for home discharge. L and I forms are filled out. Discharge Plan Departure Patient Disposition: Home Clinical Impression: Sprain and strain of right wrist Fall Qualifiers: Encounter type: initial encounter Qualified Code(s): W19.XXXA - Unspecified fall, initial encounter Low back strain Qualifiers: Encounter type: initial encounter Qualified Code(s): S39.012A - Strain of muscle, fascia and tendon of lower back, initial encounter Instructions: DI for Wrist Sprain, DI for Low Back Pain Activity Restrictions/Additional Instructions: Thank you for coming in today. Your wrist abnormality seen on the x-ray turns out to be and arthritis finding. The CT scan does not show a fracture. This is good news. The hand is likely going to be more sore and more swollen tomorrow but should heal nicely over the next 1-2 weeks. With the twisting turning motion to your back, you did not injure the surgical site however this to will hurt more tomorrow and should get better within the next 1-2 weeks. Using 400 mg of ibuprofen (2 [id number] pills) and 1 Tylenol every 6 hours can be very helpful in controlling pain. Using ice for the back and the wrist will also be helpful. I hope you heal quickly. Prescriptions: No Action fluoxetine [Prozac] 40 MG capsule 80 mg PO QDAY Qty: 0 RF: 0 furosemide 20 MG tablet 40 mg PO QAM Qty: 0 RF: 0 esomeprazole magnesium [Nexium] 40 MG capsule,delayed release(DR/EC) 40 mg PO QAM Qty: 0 RF: 0 levothyroxine [Synthroid] 125 mcg Tablet 125 mcg PO DAILY RF: 0 cyclobenzaprine 10 mg Tablet 10 mg PO TID PRN (Reason: Muscle Spasm) RF: 0 isosorbide mononitrate 60 mg Tablet Extended Release 24 Hr 60 mg PO QAM RF: 0 simvastatin 20 mg Tablet 20 mg PO QAM RF: 0 omeprazole 20 mg Capsule,Delayed Release(Dr/Ec) 20 mg PO DAILY RF: 0 propranolol 20 mg Tablet 20 mg PO TID RF: 0 albuterol sulfate [ProAir HFA] 90 mcg/actuation Hfa Aerosol Inhaler 2 puff INHALATION Q4-6H PRN (Reason: sob) RF: 0 fluticasone propionate [Flonase Allergy Relief] 50 mcg/actuation [place],Suspension 2 spray INTRANASAL DAILY RF: 0 Flovent HFA 110 mcg/actuation Hfa Aerosol Inhaler 2 puff INHALATION QAM RF: 0 acetaminophen 325 mg Tablet 650 mg PO Q6HR PRN (Reason: Pain, Mild (1-3)) Qty: 0 RF: 0 docusate sodium 100 mg Capsule 100 mg PO BID Qty: 0 RF: 0 hydroxyzine pamoate 25 mg Capsule 25 mg PO Q4HR PRN (Reason: Nausea And Vomiting) Qty: 60 RF: 1 oxycodone 5 mg tablet 5 mg PO Q4-6H PRN (Reason: pain) Qty: 40 RF: 0 acetaminophen 325 mg Tablet 650 mg PO Q6HR PRN (Reason: Pain, Mild (1-3)) Qty: 0 RF: 0 hydroxyzine pamoate 25 mg Capsule 25 mg PO Q4HR PRN (Reason: Nausea And Vomiting) Qty: 40 RF: 0 oxycodone 5 mg tablet 5 mg PO Q4-6H PRN (Reason: pain) Qty: 40 RF: 0 sulfamethoxazole-trimethoprim [Bactrim DS] 800-160 mg tablet 1 tab PO BID Qty: 20 RF: 0 Referrals: [place],Yi, MD [Primary Care Provider] - Stand Alone Forms: Work Release Note
--- NOTE | 2020-02-02 12:20 | DI.CT.S_ITS ---
PROCEDURE: CT UE RT WO CON INDICATIONS: concern for scaphoid fx TECHNIQUE: Noncontrast 1 mm axial sections acquired through the carpal bones, with coronal and sagittal reformats. COMPARISON: [facility], CR, XR WRIST RT MIN 3V, 02/02/2020, 10:31. FINDINGS: Image quality: Excellent. Bones: No fracture or dislocation is found. There is a moderate to moderately severe degenerative changes along the intercarpal and radiocarpal articulations, resulting in both joint space narrowing and osteophyte formation, and several subchondral cysts. In the area of prior plain film concern, distal scaphoid, a fracture is not found. There is a finding of several lucencies involving the lateral aspect of the distal trapezium bone which also appear to represent degenerative changes. Soft tissues: No hematoma found, no dislocation present. IMPRESSION: Degenerative changes as discussed, no scaphoid fracture is found. The area of prior concern appears to represent a small cortical crease rather than sequela of acute trauma. Dictated by: Alan Bonner M.D. on 02/02/2020 at 13:23 Approved by: Alan Bonner M.D. on 02/02/2020 at 13:45
[2020-02-02 14:31] VITALS: BP 136/72; PULSE 80; RESP 16; O2SAT 97
== END 2020-02-02 14:31 | disposition home or self-care (01) ==
PROVIDERS: Emergency Provider Emergency Medicine; Family Provider Orthopaedic Surgery Orthopaedic Surgery of the Spine; PCP Family Medicine
DX: S63.501A Unspecified sprain of right wrist, initial encounter (principal); S66.911A Strain of unspecified muscle, fascia and tendon at wrist and hand level, right hand, initial encounter; S39.012A Strain of muscle, fascia and tendon of lower back, initial encounter; S50.311A Abrasion of right elbow, initial encounter; W19.XXXA Unspecified fall, initial encounter; Y99.0 Civilian activity done for income or pay
CPT/HCPCS: 72100; 73110; 73200; 99284

== ENCOUNTER 2023-03-19 09:37 | Inpatient (IN) | payer MEDICARE, SELFPAY ==
[2019-01-19 06:37] VITALS: BMI 47.7
[2023-03-19] VITALS (20 sets, daily range): BP systolic 81–170; BP diastolic 40–90; PULSE 70–105; RESP 13–21; TEMP 35.3–38.6; O2SAT 93–99; BMI 45.5
[2023-03-19 11:08] LABS: Appearance Urine UA CLEAR; Bilirubin Urine UA NEGATIVE (NEGATIVE); Color Urine UA YELLOW; Glucose Urine UA NEGATIVE (Negative); Ketones Urine UA NEGATIVE (NEGATIVE); Leukocyte Esterase Urine UA 3+ (NEGATIVE); Nitrite Urine UA POSITIVE (Negative); Occult Blood Urine UA 3+ (Negative); Protein Urine UA 1+ (Negative); pH Urine UA 5.5 (4.5-8.0)
--- NOTE | 2023-03-19 11:17 | ED.WEAKNESS ---
HPI - Weakness <Dallin Duke PA-C - Last Filed: 03/19/23 14:38> General Chief complaint: Weakness Stated complaint: body aches, trouble walking Time Seen by Provider: 03/19/23 11:15 Source: patient Mode of arrival: Ambulatory History of Present Illness HPI Narrative: 63-year-old female with past medical history GERD, hypertension, hyperlipidemia, hypothyroidism, depression and anxiety presents to the ED with 5 days of worsening fatigue, weakness, urinary frequency, urinary urgency. Patient also endorses some lower abdominal pain that occurs sporadically. Patient states that she has been extremely tired and fatigued, feels weak and unstable when walking. Patient denies fever, chills, chest pain, shortness of breath, nausea, vomiting, flank pain, dizziness, syncope. Patient states that she was so weak this morning that she stumbled and fell. Patient denies loss of consciousness. Patient is not on blood thinners. Related Data Home Medications Medication Instructions Recorded Confirmed esomeprazole magnesium 40 mg 40 mg PO QAM ##0 07/05/12 03/19/23 capsule,delayed release (Nexium) furosemide 20 mg tablet 40 mg PO QAM ##0 07/05/12 03/19/23 albuterol sulfate 90 mcg/actuation 2 puff inhalation Q4-6H PRN sob 10/09/18 03/19/23 aerosol inhaler (ProAir HFA) cyclobenzaprine 10 mg tablet 10 mg PO TID PRN Muscle Spasm 10/09/18 03/19/23 fluticasone propionate 50 2 spray intranasal DAILY 10/09/18 03/19/23 mcg/actuation nasal spray,suspension (Flonase Allergy Relief) isosorbide mononitrate 60 mg 60 mg PO QAM 10/09/18 03/19/23 tablet,extended release 24 hr levothyroxine 125 mcg tablet 175 mcg PO DAILY 10/09/18 03/19/23 (Synthroid) omeprazole 20 mg capsule,delayed 20 mg PO DAILY 10/09/18 03/19/23 release simvastatin 20 mg tablet 20 mg PO QAM 10/09/18 03/19/23 citalopram 20 mg tablet 20 mg PO QAM 03/19/23 03/19/23 colchicine 0.6 mg tablet (Colcrys) 0.6 mg PO QAM 03/19/23 03/19/23 meloxicam 7.5 mg tablet 7.5 mg PO QAM 03/19/23 03/19/23 Previous Rx's Medication Instructions Recorded acetaminophen 325 mg tablet 650 mg PO Q6HR PRN Pain, Mild 10/14/18 (1-3) #0 tabs Allergies Allergy/AdvReac Type Severity Reaction Status Date / Time erythromycin base Allergy Severe Hives, Verified 03/19/23 15:02 [ERYTHROMYCIN BASE] syncope Review of Systems <Dallin Duke PA-C - Last Filed: 03/19/23 14:38> Review of Systems ROS Unobtainable: All systems reviewed & are unremarkable except as noted in HPI and below Constitutional Constitutional: Denies chills, Reports daytime sleepiness, Reports fatigue, Denies fever(s), Denies frequent falls, Reports lethargy and Reports weakness Eyes Eyes: Denies change in vision, Denies eye discharge, Denies irritation and Denies loss of vision ENT Ears, Nose, Mouth, and Throat: Denies change in voice, Denies dizziness, Denies neck pain, Denies sore throat and Denies throat swelling Cardiovascular Cardiovascular: Denies chest pain, Denies irregular heart rhythm, Denies lightheadedness, Denies palpitations, Denies dyspnea, Denies dyspnea on exertion and Denies orthopnea Respiratory Respiratory: Denies cough, Denies dyspnea, Denies dyspnea on exertion and Denies wheezing Gastrointestinal Gastrointestinal: Denies abdominal pain, Denies change in bowel habits, Denies diarrhea, Denies nausea and Denies vomiting Genitourinary Genitourinary: Denies hematuria, Denies flank pain, Reports urinary incontinence and Reports urinary urgency Comments: Urinary urgency, urinary frequency, urinary incontinence. Incomplete bladder emptying Musculoskeletal Musculoskeletal: Denies back pain, Denies muscle weakness, Denies neck pain, Denies numbness and Denies tingling Integumentary/Breasts Skin/Breast: Denies pruritus, Denies erythema, Denies rash and Denies wounds Neurologic Neurologic: Denies behavioral changes, Denies confusion, Denies dizziness, Denies frequent falls, Denies loss of vision, Denies numbness, Denies tingling and Reports weakness Psychiatric Psychiatric: Denies anxiety, Denies behavioral changes, Denies confusion, Denies depression, Denies homicidal ideation and Denies suicidal ideation Endocrine Endocrine: Reports fatigue, Denies flushing and Denies palpitations Hematologic/Lymphatic Hematologic/Lymphatic: Denies easy bruising Allergic/Immunologic Allergic/Immunologic: Denies urticaria, Denies throat swelling and Denies wheezing Patient History <Dallin Duke PA-C - Last Filed: 03/19/23 14:38> Medical History (Updated 03/19/23 @ 14:57 by Chuy Rosen MD) Arthritis Chronic neck and back pain Depression Difficulty swallowing Easy bruisability Elbow fracture, right Generalized edema GERD (gastroesophageal reflux disease) HTN (hypertension) Hyperlipidemia Left ureteral calculus Numbness and tingling Pinched nerve Severe anxiety Shortness of breath Sleep apnea Urinary tract infection Surgical History History of arthroplasty of right knee History of bilateral tubal ligation History of hysterectomy History of lumbar spinal fusion (10/13/18) Hx of cholecystectomy Hx of hernia repair Hx of partial thyroidectomy Hx of tonsillectomy S/P foot surgery, right Social History household members: spouse, family and children Smoking Status: Never smoker alcohol intake: current Smoking Status: Never smoker alcohol intake frequency: holidays/special occasions only Substance Use Type: does not use Exam <Dallin Duke PA-C - Last Filed: 03/19/23 14:38> Narrative Exam Narrative: Const General:?cooperative, healthy appearing and comfortable [facility] Head:?normal to inspection Ears:?hearing grossly normal bilaterally Nose:?external nose normal Face and sinus:?normal facial exam and sinuses nontender Mouth:?oral mucosae normal Throat:?posterior oropharynx normal Eyes General:?appearance normal, both eyes and all related structures Neck Neck:?normal visual inspection and no lymphadenopathy noted Resp Effort & Inspection:?normal respiratory effort Auscultation:?clear to auscultation bilaterally Cardio Rate:?regular rate Rhythm:?regular rhythm GI Abdomen is soft, nondistended, diffusely tender to palpation. There is mild bilateral CVA tenderness. Neuro General:?patient alert, patient awake and patient oriented x3 Initial Vital Signs Initial Vital Signs: Vital Signs Temperature 99.0 F 03/19/23 09:41 Pulse Rate 72 03/19/23 09:41 Respiratory Rate 16 03/19/23 09:41 Blood Pressure 119/71 03/19/23 09:41 Pulse Oximetry 98 03/19/23 09:41 Oxygen Delivery Method Room Air 03/19/23 09:41 <Desire Rai DO - Last Filed: 03/19/23 20:51> Initial Vital Signs Initial Vital Signs: Vital Signs Temperature 99.0 F 03/19/23 09:41 Pulse Rate 72 03/19/23 09:41 Respiratory Rate 16 03/19/23 09:41 Blood Pressure 119/71 03/19/23 09:41 Pulse Oximetry 98 03/19/23 09:41 Oxygen Delivery Method Room Air 03/19/23 09:41 Course <Dallin Duke PA-C - Last Filed: 03/19/23 14:38> Orders Ordered: ED Orders 03/19/23 12:47 Blood Culture Stat 03/20/23 05:00 BMP [Basic Metabolic Panel] DAILY CBC Auto Diff [Complete Blood Count AUTO DIFF] DAILY 03/21/23 05:00 BMP [Basic Metabolic Panel] DAILY CBC Auto Diff [Complete Blood Count AUTO DIFF] DAILY 03/22/23 05:00 BMP [Basic Metabolic Panel] DAILY CBC Auto Diff [Complete Blood Count AUTO DIFF] DAILY Acetaminophen (Acetaminophen 325 Mg Tablet) 650 mg PO Q6H PRN PRN Reason: Fever/Mild Pain (1-3) Atorvastatin Calcium (Atorvastatin 20 Mg Tablet) 10 mg PO BEDTIME [facility] Budesonide (Budesonide 0.5 Mg/2 Ml Neb) 0.5 mg INH RTBID [facility] Last Admin: 03/19/23 19:51 Dose: 0.5 mg Documented By: SAT Cyclobenzaprine HCl (Cyclobenzaprine 10 Mg Tablet) 10 mg PO TID PRN PRN Reason: Muscle Spasm Docusate Sodium (Docusate 100 Mg Capsule) 100 mg PO BID [facility] Fluoxetine HCl (Fluoxetine 20 Mg Capsule) 80 mg PO DAILY [facility] Furosemide (Furosemide 20 Mg Tablet) 40 mg PO DAILY [facility] Heparin Sodium (Porcine) (Heparin 5,000 Unit/Ml Vial) 5,000 unit SUBCUT BID [facility] Hydromorphone HCl (Hydromorphone 0.5 Mg Inj) 0.5 mg IV Q4H PRN PRN Reason: Pain, Moderate (4-6) Hydroxyzine Pamoate (Hydroxyzine Pamoate 25 Mg Capsule) 25 mg PO Q4HR PRN PRN Reason: Nausea And Vomiting Sodium Chloride (Normal Saline 0.9%) 1,000 mls @ 100 mls/hr IV CONT [facility] Stop: 03/20/23 02:29 Last Admin: 03/19/23 18:38 Dose: 100 mls/hr Documented By: KARSON Ceftriaxone Sodium 2,000 mg/ (Sodium Chloride) 100 mls @ 200 mls/hr IV Q24H [facility] Stop: 03/25/23 08:59 Lactated Ringer's (Lactated Ringers) 1,000 mls @ 100 mls/hr IV NOW ONE Stop: 03/20/23 03:14 Last Infusion: 03/19/23 18:41 Dose: 100 mls/hr Documented By: Admin: 03/19/23 17:17 Dose: 100 mls/hr Documented By: Infusion: 03/19/23 17:17 Dose: 100 mls/hr Documented By: Admin: 03/19/23 17:16 Dose: 100 mls/hr Documented By: [facility] Isosorbide Mononitrate (Isosorbide Mononitrate Er 30 Mg Tablet) 60 mg PO DAILY [facility] Levothyroxine Sodium (Levothyroxine 125 Mcg Tablet) 125 mcg PO DAILY@0600 [facility] Melatonin (Melatonin 3 Mg Tablet) 6 mg PO BEDTIME PRN PRN Reason: Insomnia Naloxone HCl (Naloxone 0.4 Mg/Ml Vial) 0.2 mg IV Q2MIN PRN PRN Reason: Opiate Reversal Oxycodone HCl (Oxycodone Ir 5 Mg Tablet) 5 mg PO Q3H PRN PRN Reason: Pain, Moderate (4-6) Pantoprazole Sodium (Pantoprazole Dr 40 Mg Tablet) 40 mg PO 0600 [facility] Polyethylene Glycol (Polyethylene Glycol 3350 17 Gm Powd.Pack) 17 gm PO DAILY PRN PRN Reason: Constipation Sennosides (Sennosides 8.6 Mg Tablet) 8.6 mg PO BID PRN PRN Reason: Constipation Discontinued Medications Albuterol/Ipratropium (Albuterol/Ipratropium 3 Ml Ampul) 3 ml INH NOW ONE Stop: 03/19/23 16:29 Last Admin: 03/19/23 16:40 Dose: 3 ml Documented By: [facility] Enoxaparin Sodium (Enoxaparin 40 Mg/0.4 Ml Syringe) 40 mg SUBCUT DAILY [facility] Sodium Chloride (Normal Saline 0.9%) 1,000 mls @ 1,000 mls/hr IV BOLUS ONE Stop: 03/19/23 13:03 Last Infusion: 03/19/23 13:32 Dose: 0 mls/hr Documented By: Admin: 03/19/23 12:37 Dose: 1,000 mls/hr Documented By: CTS Ceftriaxone Sodium 1,000 mg/ (Sodium Chloride) 100 mls @ 200 mls/hr IV NOW ONE Stop: 03/19/23 13:44 Last Infusion: 03/19/23 14:48 Dose: 0 mls/hr Documented By: Admin: 03/19/23 14:12 Dose: 200 mls/hr Documented By: CTS Ceftriaxone Sodium 1,000 mg/ (Sodium Chloride) 100 mls @ 200 mls/hr IV NOW ONE Stop: 03/19/23 14:24 Last Admin: 03/19/23 18:38 Dose: 200 mls/hr Documented By: MM Acetaminophen (Ofirmev) 1,000 mg in 100 mls @ 400 mls/hr IV NOW ONE Stop: 03/19/23 15:42 Last Infusion: 03/19/23 17:14 Dose: 0 mls/hr Documented By: Admin: 03/19/23 15:28 Dose: 400 mls/hr Documented By: CG Potassium Chloride (Potassium Chloride 20 Meq Tab) 40 meq PO NOW ONE Stop: 03/19/23 12:05 Last Admin: 03/19/23 12:37 Dose: 40 meq Documented By: CTS Vital Signs Vital signs: Vital Signs - 8 hr 03/19/23 13:00 03/19/23 13:00 03/19/23 13:30 Pulse Rate 82 91 H Blood Pressure 127/67 Pulse Oximetry 95 98 03/19/23 14:13 03/19/23 14:14 03/19/23 14:14 Pulse Rate 82 83 Blood Pressure 140/63 Pulse Oximetry 95 97 <Desire Rai, - Last Filed: 03/19/23 20:51> Orders Ordered: ED Orders 03/19/23 12:47 Blood Culture Stat 03/20/23 05:00 BMP [Basic Metabolic Panel] DAILY CBC Auto Diff [Complete Blood Count AUTO DIFF] DAILY 03/21/23 05:00 BMP [Basic Metabolic Panel] DAILY CBC Auto Diff [Complete Blood Count AUTO DIFF] DAILY 03/22/23 05:00 BMP [Basic Metabolic Panel] DAILY CBC Auto Diff [Complete Blood Count AUTO DIFF] DAILY Acetaminophen (Acetaminophen 325 Mg Tablet) 650 mg PO Q6H PRN PRN Reason: Fever/Mild Pain (1-3) Atorvastatin Calcium (Atorvastatin 20 Mg Tablet) 10 mg PO BEDTIME [facility] Budesonide (Budesonide 0.5 Mg/2 Ml Neb) 0.5 mg INH RTBID [facility] Last Admin: 03/19/23 19:51 Dose: 0.5 mg Documented By: SAT Cyclobenzaprine HCl (Cyclobenzaprine 10 Mg Tablet) 10 mg PO TID PRN PRN Reason: Muscle Spasm Docusate Sodium (Docusate 100 Mg Capsule) 100 mg PO BID [facility] Fluoxetine HCl (Fluoxetine 20 Mg Capsule) 80 mg PO DAILY [facility] Furosemide (Furosemide 20 Mg Tablet) 40 mg PO DAILY [facility] Heparin Sodium (Porcine) (Heparin 5,000 Unit/Ml Vial) 5,000 unit SUBCUT BID [facility] Hydromorphone HCl (Hydromorphone 0.5 Mg Inj) 0.5 mg IV Q4H PRN PRN Reason: Pain, Moderate (4-6) Hydroxyzine Pamoate (Hydroxyzine Pamoate 25 Mg Capsule) 25 mg PO Q4HR PRN PRN Reason: Nausea And Vomiting Sodium Chloride (Normal Saline 0.9%) 1,000 mls @ 100 mls/hr IV CONT [facility] Stop: 03/20/23 02:29 Last Admin: 03/19/23 18:38 Dose: 100 mls/hr Documented By: KARSON Ceftriaxone Sodium 2,000 mg/ (Sodium Chloride) 100 mls @ 200 mls/hr IV Q24H [facility] Stop: 03/25/23 08:59 Lactated Ringer's (Lactated Ringers) 1,000 mls @ 100 mls/hr IV NOW ONE Stop: 03/20/23 03:14 Last Infusion: 03/19/23 18:41 Dose: 100 mls/hr Documented By: Admin: 03/19/23 17:17 Dose: 100 mls/hr Documented By: Infusion: 03/19/23 17:17 Dose: 100 mls/hr Documented By: Admin: 03/19/23 17:16 Dose: 100 mls/hr Documented By: TORI Isosorbide Mononitrate (Isosorbide Mononitrate Er 30 Mg Tablet) 60 mg PO DAILY [facility] Levothyroxine Sodium (Levothyroxine 125 Mcg Tablet) 125 mcg PO DAILY@0600 [facility] Melatonin (Melatonin 3 Mg Tablet) 6 mg PO BEDTIME PRN PRN Reason: Insomnia Naloxone HCl (Naloxone 0.4 Mg/Ml Vial) 0.2 mg IV Q2MIN PRN PRN Reason: Opiate Reversal Oxycodone HCl (Oxycodone Ir 5 Mg Tablet) 5 mg PO Q3H PRN PRN Reason: Pain, Moderate (4-6) Pantoprazole Sodium (Pantoprazole Dr 40 Mg Tablet) 40 mg PO 0600 [facility] Polyethylene Glycol (Polyethylene Glycol 3350 17 Gm Powd.Pack) 17 gm PO DAILY PRN PRN Reason: Constipation Sennosides (Sennosides 8.6 Mg Tablet) 8.6 mg PO BID PRN PRN Reason: Constipation Discontinued Medications Albuterol/Ipratropium (Albuterol/Ipratropium 3 Ml Ampul) 3 ml INH NOW ONE Stop: 03/19/23 16:29 Last Admin: 03/19/23 16:40 Dose: 3 ml Documented By: [facility] Enoxaparin Sodium (Enoxaparin 40 Mg/0.4 Ml Syringe) 40 mg SUBCUT DAILY [facility] Sodium Chloride (Normal Saline 0.9%) 1,000 mls @ 1,000 mls/hr IV BOLUS ONE Stop: 03/19/23 13:03 Last Infusion: 03/19/23 13:32 Dose: 0 mls/hr Documented By: Admin: 03/19/23 12:37 Dose: 1,000 mls/hr Documented By: ANTWON Ceftriaxone Sodium 1,000 mg/ (Sodium Chloride) 100 mls @ 200 mls/hr IV NOW ONE Stop: 03/19/23 13:44 Last Infusion: 03/19/23 14:48 Dose: 0 mls/hr Documented By: Admin: 03/19/23 14:12 Dose: 200 mls/hr Documented By: ANTWON Ceftriaxone Sodium 1,000 mg/ (Sodium Chloride) 100 mls @ 200 mls/hr IV NOW ONE Stop: 03/19/23 14:24 Last Admin: 03/19/23 18:38 Dose: 200 mls/hr Documented By: MM Acetaminophen (Ofirmev) 1,000 mg in 100 mls @ 400 mls/hr IV NOW ONE Stop: 03/19/23 15:42 Last Infusion: 03/19/23 17:14 Dose: 0 mls/hr Documented By: Admin: 03/19/23 15:28 Dose: 400 mls/hr Documented By: CG Potassium Chloride (Potassium Chloride 20 Meq Tab) 40 meq PO NOW ONE Stop: 03/19/23 12:05 Last Admin: 03/19/23 12:37 Dose: 40 meq Documented By: CTS Vital Signs Vital signs: Vital Signs - 8 hr 03/19/23 13:00 03/19/23 13:00 03/19/23 13:30 Pulse Rate 82 91 H Blood Pressure 127/67 Pulse Oximetry 95 98 03/19/23 14:13 03/19/23 14:14 03/19/23 14:14 Pulse Rate 82 83 Blood Pressure 140/63 Pulse Oximetry 95 97 MDM - Weakness <Dallin Duke PA-C - Last Filed: 03/19/23 14:38> Lab Data 03/19/23 10:54 03/19/23 10:54 Labs: Lab Results 03/19/23 03/19/23 03/19/23 Range/Units 10:54 10:54 10:54 WBC 20.7 H (4.5-11.0) X10^3/uL RBC 4.35 (4.0-5.2) X10^6/uL Hgb 12.5 (12.0-16.0) g/dL Hct 36.9 (36-46) % MCV 84.8 (80-100) fL MCH 28.8 (26-34) PG MCHC 33.9 (30-36) % RDW 13.4 (11.6-14.8) % Plt Count 197 (150-400) X10^3/uL Neut % (Auto) 83.5 H (50-75) % Lymph % (Auto) 6.1 L (25-40) % Christian % (Auto) 10.2 (3-14) % Eos % (Auto) 0.0 L (2-4) % Baso % (Auto) 0.2 (0-2) % Neut # (Auto) 14767 H (2597-8784) /uL Lymph # (Auto) 1300 (1996-5122) /uL Christian # (Auto) 2100 H (0-900) /uL Eos # (Auto) 0 (0-450) /uL Baso # (Auto) 0 (0-100) /uL Sodium 130 L (137-145) mmol/L Potassium 3.1 L (3.4-5.1) mmol/L Chloride 94 L (98-107) mmol/L Carbon Dioxide 26 (22-32) mmol/L BUN 22 H (7-17) mg/dL Creatinine 1.29 H (0.52-1.04) mg/dL Estimated GFR 46 L (>60) mL/min BUN/Creatinine Ratio 17.1 (6-22) Glucose 114 H (80-110) mg/dL Lactate 1.4 (0.7-2.1) mmol/L Calcium 8.8 (8.4-10.2) mg/dL Magnesium (1.6-2.3) mg/dL Total Bilirubin 1.0 (0.2-1.3) mg/dL AST 39 H (14-36) IU/L ALT 28 (<35) IU/L Alkaline Phosphatase 93 (38-126) U/L Total Protein 7.4 (6.3-8.2) g/dL Albumin 4.0 (3.5-5.0) g/dL Globulin 3.4 (1.7-4.1) g/dL Albumin/Globulin Ratio 1.2 (1.0-2.8) Lipase (23-300) U/L TSH (0.47-4.68) uIU/mL Free T4 (0.78-2.19) ng/dL Urine Color Urine Appearance Urine pH (4.5-8.0) Ur Specific [place] (1.000-1.035) Urine Protein (Negative) Urine Glucose (UA) (Negative) g/dL Urine Ketones (NEGATIVE) Urine Occult Blood (Negative) Urine Nitrate (Negative) Urine Bilirubin (NEGATIVE) Urine Urobilinogen (0.2) E.U./dL Ur Leukocyte Esterase (NEGATIVE) Urine RBC (0-5/HPF) Urine WBC (0-5/HPF) Ur Squamous Epith Cells (0-5/HPF) Ur Transition Epith Cell (0-5/HPF) Ur Renal Epithelial Cell (0-1/HPF) Urine Bacteria (None) Ur Culture Indicated? 03/19/23 03/19/23 03/19/23 Range/Units 10:54 10:54 10:54 WBC (4.5-11.0) X10^3/uL RBC (4.0-5.2) X10^6/uL Hgb (12.0-16.0) g/dL Hct (36-46) % MCV (80-100) fL MCH (26-34) PG MCHC (30-36) % RDW (11.6-14.8) % Plt Count (150-400) X10^3/uL Neut % (Auto) (50-75) % Lymph % (Auto) (25-40) % Christian % (Auto) (3-14) % Eos % (Auto) (2-4) % Baso % (Auto) (0-2) % Neut # (Auto) (8233-8317) /uL Lymph # (Auto) (8210-7947) /uL Christian # (Auto) (0-900) /uL Eos # (Auto) (0-450) /uL Baso # (Auto) (0-100) /uL Sodium (137-145) mmol/L Potassium (3.4-5.1) mmol/L Chloride (98-107) mmol/L Carbon Dioxide (22-32) mmol/L BUN (7-17) mg/dL Creatinine (0.52-1.04) mg/dL Estimated GFR (>60) mL/min BUN/Creatinine Ratio (6-22) Glucose (80-110) mg/dL Lactate (0.7-2.1) mmol/L Calcium (8.4-10.2) mg/dL Magnesium 1.6 (1.6-2.3) mg/dL Total Bilirubin (0.2-1.3) mg/dL AST (14-36) IU/L ALT (<35) IU/L Alkaline Phosphatase (38-126) U/L Total Protein (6.3-8.2) g/dL Albumin (3.5-5.0) g/dL Globulin (1.7-4.1) g/dL Albumin/Globulin Ratio (1.0-2.8) Lipase 22 L (23-300) U/L TSH < 0.02 L (0.47-4.68) uIU/mL Free T4 1.78 (0.78-2.19) ng/dL Urine Color Urine Appearance Urine pH (4.5-8.0) Ur Specific [place] (1.000-1.035) Urine Protein (Negative) Urine Glucose (UA) (Negative) g/dL Urine Ketones (NEGATIVE) Urine Occult Blood (Negative) Urine Nitrate (Negative) Urine Bilirubin (NEGATIVE) Urine Urobilinogen (0.2) E.U./dL Ur Leukocyte Esterase (NEGATIVE) Urine RBC (0-5/HPF) Urine WBC (0-5/HPF) Ur Squamous Epith Cells (0-5/HPF) Ur Transition Epith Cell (0-5/HPF) Ur Renal Epithelial Cell (0-1/HPF) Urine Bacteria (None) Ur Culture Indicated? 03/19/23 Range/Units 11:00 WBC (4.5-11.0) X10^3/uL RBC (4.0-5.2) X10^6/uL Hgb (12.0-16.0) g/dL Hct (36-46) % MCV (80-100) fL MCH (26-34) PG MCHC (30-36) % RDW (11.6-14.8) % Plt Count (150-400) X10^3/uL Neut % (Auto) (50-75) % Lymph % (Auto) (25-40) % Christian % (Auto) (3-14) % Eos % (Auto) (2-4) % Baso % (Auto) (0-2) % Neut # (Auto) (4218-4917) /uL Lymph # (Auto) (6504-1166) /uL Christian # (Auto) (0-900) /uL Eos # (Auto) (0-450) /uL Baso # (Auto) (0-100) /uL Sodium (137-145) mmol/L Potassium (3.4-5.1) mmol/L Chloride (98-107) mmol/L Carbon Dioxide (22-32) mmol/L BUN (7-17) mg/dL Creatinine (0.52-1.04) mg/dL Estimated GFR (>60) mL/min BUN/Creatinine Ratio (6-22) Glucose (80-110) mg/dL Lactate (0.7-2.1) mmol/L Calcium (8.4-10.2) mg/dL Magnesium (1.6-2.3) mg/dL Total Bilirubin (0.2-1.3) mg/dL AST (14-36) IU/L ALT (<35) IU/L Alkaline Phosphatase (38-126) U/L Total Protein (6.3-8.2) g/dL Albumin (3.5-5.0) g/dL Globulin (1.7-4.1) g/dL Albumin/Globulin Ratio (1.0-2.8) Lipase (23-300) U/L TSH (0.47-4.68) uIU/mL Free T4 (0.78-2.19) ng/dL Urine Color Yellow Urine Appearance Clear Urine pH 5.5 (4.5-8.0) Ur Specific [place] 1.020 (1.000-1.035) Urine Protein 1+ H (Negative) Urine Glucose (UA) Negative (Negative) g/dL Urine Ketones Negative (NEGATIVE) Urine Occult Blood 3+ H (Negative) Urine Nitrate Positive H (Negative) Urine Bilirubin Negative (NEGATIVE) Urine Urobilinogen 1.0 (0.2) E.U./dL Ur Leukocyte Esterase 3+ H (NEGATIVE) Urine RBC None seen (0-5/HPF) Urine WBC 30-100/hpf H (0-5/HPF) Ur Squamous Epith Cells 0-1 /hpf (0-5/HPF) Ur Transition Epith Cell 0-1/hpf (0-5/HPF) Ur Renal Epithelial Cell 0-1/hpf (0-1/HPF) Urine Bacteria Many (>30) H (None) Ur Culture Indicated? Specimen cultured MDM Narrative Medical decision making narrative: 63-year-old female with past medical history GERD, hypertension, hyperlipidemia, hypothyroidism, depression and anxiety presents to the ED with 5 days of worsening fatigue, weakness, urinary frequency, urinary urgency. Patient is also diffusely tender to palpation in the abdomen. There is mild CVA tenderness bilaterally. Concern for UTI versus pyelonephritis versus sepsis versus other intra-abdominal pathology versus other. Will obtain labs, lipase, lactate, UA, CT abdomen pelvis. UA is positive for UTI, positive for blood, nitrates, leukocyte esterase, urine WBC. White count is elevated to 20.7. Low Sodium at 130, low potassium at 3.1. Patient appears to have a EMILIANA with creatinine at 1.29. Patient's baseline creatinine was 0.7 from her last visit. GFR is also reduced to 46 compared to her baseline at greater than 60. Lactate is normal at 1.4. Patient was given 1 L of IV fluid bolus, potassium supplemented. Blood cultures obtained. Ceftriaxone IV started. CT abdomen pelvis shows a 6 mm stone in the left ureteropelvic junction with moderate hydronephrosis and left-sided perinephric stranding. There is also a 7 mm nonobstructing stone at the interpolar region of the left kidney. No right-sided calculi or hydronephrosis. Will consult Urology. Patient is comfortable in the ED, not complaining of pain. Patient is not nauseous, not vomiting. Dr. Rosen from Urology was consulted, you would like to prepare patient for the OR to get stents in. Hospitalist Dr. Croft was consulted, he graciously agreed to admit the patient to the inpatient service. <Desire Rai, DO - Last Filed: 03/19/23 20:51> Lab Data Labs: Lab Results 03/19/23 03/19/23 03/19/23 Range/Units 10:54 10:54 10:54 WBC 20.7 H (4.5-11.0) X10^3/uL RBC 4.35 (4.0-5.2) X10^6/uL Hgb 12.5 (12.0-16.0) g/dL Hct 36.9 (36-46) % MCV 84.8 (80-100) fL MCH 28.8 (26-34) PG MCHC 33.9 (30-36) % RDW 13.4 (11.6-14.8) % Plt Count 197 (150-400) X10^3/uL Neut % (Auto) 83.5 H (50-75) % Lymph % (Auto) 6.1 L (25-40) % Christian % (Auto) 10.2 (3-14) % Eos % (Auto) 0.0 L (2-4) % Baso % (Auto) 0.2 (0-2) % Neut # (Auto) 85065 H (0139-1875) /uL Lymph # (Auto) 1300 (9303-9717) /uL Christian # (Auto) 2100 H (0-900) /uL Eos # (Auto) 0 (0-450) /uL Baso # (Auto) 0 (0-100) /uL Sodium 130 L (137-145) mmol/L Potassium 3.1 L (3.4-5.1) mmol/L Chloride 94 L (98-107) mmol/L Carbon Dioxide 26 (22-32) mmol/L BUN 22 H (7-17) mg/dL Creatinine 1.29 H (0.52-1.04) mg/dL Estimated GFR 46 L (>60) mL/min BUN/Creatinine Ratio 17.1 (6-22) Glucose 114 H (80-110) mg/dL Lactate 1.4 (0.7-2.1) mmol/L Calcium 8.8 (8.4-10.2) mg/dL Magnesium (1.6-2.3) mg/dL Total Bilirubin 1.0 (0.2-1.3) mg/dL AST 39 H (14-36) IU/L ALT 28 (<35) IU/L Alkaline Phosphatase 93 (38-126) U/L Total Protein 7.4 (6.3-8.2) g/dL Albumin 4.0 (3.5-5.0) g/dL Globulin 3.4 (1.7-4.1) g/dL Albumin/Globulin Ratio 1.2 (1.0-2.8) Lipase (23-300) U/L TSH (0.47-4.68) uIU/mL Free T4 (0.78-2.19) ng/dL Urine Color Urine Appearance Urine pH (4.5-8.0) Ur Specific [place] (1.000-1.035) Urine Protein (Negative) Urine Glucose (UA) (Negative) g/dL Urine Ketones (NEGATIVE) Urine Occult Blood (Negative) Urine Nitrate (Negative) Urine Bilirubin (NEGATIVE) Urine Urobilinogen (0.2) E.U./dL Ur Leukocyte Esterase (NEGATIVE) Urine RBC (0-5/HPF) Urine WBC (0-5/HPF) Ur Squamous Epith Cells (0-5/HPF) Ur Transition Epith Cell (0-5/HPF) Ur Renal Epithelial Cell (0-1/HPF) Urine Bacteria (None) Ur Culture Indicated? 06/13/23 06/13/23 06/13/23 Range/Units 10:54 10:54 10:54 WBC (4.5-11.0) X10^3/uL RBC (4.0-5.2) X10^6/uL Hgb (12.0-16.0) g/dL Hct (36-46) % MCV (80-100) fL MCH (26-34) PG MCHC (30-36) % RDW (11.6-14.8) % Plt Count (150-400) X10^3/uL Neut % (Auto) (50-75) % Lymph % (Auto) (25-40) % [place] % (Auto) (3-14) % Eos % (Auto) (2-4) % Baso % (Auto) (0-2) % Neut # (Auto) (1235-5659) /uL Lymph # (Auto) (4463-2060) /uL Christian # (Auto) (0-900) /uL Eos # (Auto) (0-450) /uL Baso # (Auto) (0-100) /uL Sodium (137-145) mmol/L Potassium (3.4-5.1) mmol/L Chloride (98-107) mmol/L Carbon Dioxide (22-32) mmol/L BUN (7-17) mg/dL Creatinine (0.52-1.04) mg/dL Estimated GFR (>60) mL/min BUN/Creatinine Ratio (6-22) Glucose (80-110) mg/dL Lactate (0.7-2.1) mmol/L Calcium (8.4-10.2) mg/dL Magnesium 1.6 (1.6-2.3) mg/dL Total Bilirubin (0.2-1.3) mg/dL AST (14-36) IU/L ALT (<35) IU/L Alkaline Phosphatase (38-126) U/L Total Protein (6.3-8.2) g/dL Albumin (3.5-5.0) g/dL Globulin (1.7-4.1) g/dL Albumin/Globulin Ratio (1.0-2.8) Lipase 22 L (23-300) U/L TSH < 0.02 L (0.47-4.68) uIU/mL Free T4 1.78 (0.78-2.19) ng/dL Urine Color Urine Appearance Urine pH (4.5-8.0) Ur Specific [place] (1.000-1.035) Urine Protein (Negative) Urine Glucose (UA) (Negative) g/dL Urine Ketones (NEGATIVE) Urine Occult Blood (Negative) Urine Nitrate (Negative) Urine Bilirubin (NEGATIVE) Urine Urobilinogen (0.2) E.U./dL Ur Leukocyte Esterase (NEGATIVE) Urine RBC (0-5/HPF) Urine WBC (0-5/HPF) Ur Squamous Epith Cells (0-5/HPF) Ur Transition Epith Cell (0-5/HPF) Ur Renal Epithelial Cell (0-1/HPF) Urine Bacteria (None) Ur Culture Indicated? 03/19/23 Range/Units 11:00 WBC (4.5-11.0) X10^3/uL RBC (4.0-5.2) X10^6/uL Hgb (12.0-16.0) g/dL Hct (36-46) % MCV (80-100) fL MCH (26-34) PG MCHC (30-36) % RDW (11.6-14.8) % Plt Count (150-400) X10^3/uL Neut % (Auto) (50-75) % Lymph % (Auto) (25-40) % Christian % (Auto) (3-14) % Eos % (Auto) (2-4) % Baso % (Auto) (0-2) % Neut # (Auto) (8938-5120) /uL Lymph # (Auto) (4136-8277) /uL Christian # (Auto) (0-900) /uL Eos # (Auto) (0-450) /uL Baso # (Auto) (0-100) /uL Sodium (137-145) mmol/L Potassium (3.4-5.1) mmol/L Chloride (98-107) mmol/L Carbon Dioxide (22-32) mmol/L BUN (7-17) mg/dL Creatinine (0.52-1.04) mg/dL Estimated GFR (>60) mL/min BUN/Creatinine Ratio (6-22) Glucose (80-110) mg/dL Lactate (0.7-2.1) mmol/L Calcium (8.4-10.2) mg/dL Magnesium (1.6-2.3) mg/dL Total Bilirubin (0.2-1.3) mg/dL AST (14-36) IU/L ALT (<35) IU/L Alkaline Phosphatase (38-126) U/L Total Protein (6.3-8.2) g/dL Albumin (3.5-5.0) g/dL Globulin (1.7-4.1) g/dL Albumin/Globulin Ratio (1.0-2.8) Lipase (23-300) U/L TSH (0.47-4.68) uIU/mL Free T4 (0.78-2.19) ng/dL Urine Color Yellow Urine Appearance Clear Urine pH 5.5 (4.5-8.0) Ur Specific [place] 1.020 (1.000-1.035) Urine Protein 1+ H (Negative) Urine Glucose (UA) Negative (Negative) g/dL Urine Ketones Negative (NEGATIVE) Urine Occult Blood 3+ H (Negative) Urine Nitrate Positive H (Negative) Urine Bilirubin Negative (NEGATIVE) Urine Urobilinogen 1.0 (0.2) E.U./dL Ur Leukocyte Esterase 3+ H (NEGATIVE) Urine RBC None seen (0-5/HPF) Urine WBC 30-100/hpf H (0-5/HPF) Ur Squamous Epith Cells 0-1 /hpf (0-5/HPF) Ur Transition Epith Cell 0-1/hpf (0-5/HPF) Ur Renal Epithelial Cell 0-1/hpf (0-1/HPF) Urine Bacteria Many (>30) H (None) Ur Culture Indicated? Specimen cultured Discharge Plan Departure Patient Disposition: Admitted As Inpatient Clinical Impression: Left nephrolithiasis, Pyelonephritis, EMILIANA (acute kidney injury) Admit Date/Time: 03/19/23 14:18 Admit Provider: Juan Croft <Desire Rai, - Last Filed: 03/19/23 20:51> Cosign ED Attending Cosignature Attestation: I was immediately available in the department for consultation. Documentation has been reviewed.
[2023-03-19 11:22] LABS: Bacteria Urine Many (>30); Culture Indicated Urine Specimen Cultured; RBC Urine None Seen (0-5/HPF); Renal Epithelial Cells Urine 0-1/HPF (0-1/HPF); Squamous Epithelial Cell Urine 0-1 /HPF (0-5/HPF); Transitional Epi Cells Urine 0-1/HPF (0-5/HPF); WBC Urine 30-100/HPF (0-5/HPF)
--- NOTE | 2023-03-19 11:29 | DI.CT.S_ITS ---
PROCEDURE: CT ABDOMEN PELVIS W CON INDICATIONS: Diffuse abdominal tenderness TECHNIQUE: After the administration of intravenous contrast, axial sections acquired from the lung bases to the pubic symphysis. Coronal and sagittal reformats were performed. For radiation dose reduction, the following was used: automated exposure control, adjustment of mA and/or kV according to patient size. COMPARISON: None. FINDINGS: Image quality: Excellent. Lung bases: Unremarkable. Heart: No significant findings. ABDOMEN: Liver: Liver is hypoattenuating, which can be seen in setting of hepatic steatosis. Gallbladder: Status post cholecystectomy. Biliary ducts: Prominence of the extrahepatic bile ducts is most likely related to post cholecystectomy status. Pancreas: Unremarkable. Spleen: Unremarkable. Adrenal Glands: Unremarkable. Kidneys and Ureters: 6 mm calculus (870 Hounsfield units) is seen in the left proximal ureter just distal to the ureteropelvic junction with moderate hydronephrosis. A 7 mm nonobstructing calculus (500 Hounsfield units) is seen at the interpolar region of the left kidney. There is left perinephric fat stranding. The remainder of the left ureter is decompressed. No right-sided calculi or hydronephrosis. Stomach and Bowel: Multiple diverticula are seen in the colon without signs of acute diverticulitis. Normal appendix. No signs of small bowel obstruction. Peritoneum: No abnormal intraperitoneal fluid. No free air. Ventral Wall: Status post ventral hernia repair without a recurrent hernia is seen. Abdominal Nodes: No retroperitoneal or mesenteric adenopathy by size criteria. Vessels: Aorta and inferior vena cava are normal in size. PELVIS: Pelvic Organs: Status post hysterectomy. Bladder: Unremarkable. Pelvic Nodes: No enlarged lymph nodes. Miscellaneous: No hernias are seen. Bones: Postsurgical changes are seen in the lumbar spine. IMPRESSION: 1. Left proximal ureteral 6 mm calculus just distal to the rear pelvic junction with moderate left hydronephrosis and perinephric fat stranding. 2. Additional nonobstructing 7 mm left renal calculus. 3. Colonic diverticulosis without signs of acute diverticulitis. 4. Suspected mild hepatic steatosis. Approved by: Danny Williamson M.D. on 03/19/2023 at 13:29
[2023-03-19 11:48] LABS: Add Manual Diff / Slide Review NO; Basophils Absolute Auto 0 /uL (0-100); Basophils Percent Auto 0.2 % (0-2); Eosinophils Absolute Auto 0 /uL (0-450); Hematocrit 36.9 % (36-46); Hemoglobin 12.5 g/dL (12.0-16.0); Lymphocytes Absolute Auto 1300 /uL (1100-4500); Lymphocytes Percent Auto 6.1 % (25-40); Mean Corpuscular HGB Conc 33.9 % (30-36); Mean Corpuscular Hemoglobin 28.8 PG (26-34); Mean Corpuscular Volume 84.8 fL (80-100); Monocytes Absolute Auto 2100 /uL (0-900); Monocytes Percent Auto 10.2 % (3-14); Neutrophils Absolute Auto 17300 /uL (1500-7000); Neutrophils Percent Auto 83.5 % (50-75); Platelet Count 197 X10^3/uL (150-400); Red Blood Cell Count 4.35 X10^6/uL (4.0-5.2); Red Cell Distribution Width 13.4 % (11.6-14.8); White Blood Cell Count 20.7 X10^3/uL (4.5-11.0)
[2023-03-19 11:53] LABS: Lactate (Lactic Acid) 1.4 mmol/L (0.7-2.1)
[2023-03-19 11:54] LABS: Alanine Aminotransferase 28 IU/L (<35); Albumin Globulin Ratio 1.2 (1.0-2.8); Alkaline Phosphatase 93 U/L (38-126); Aspartate Aminotransferase 39 IU/L (14-36); BUN Creatinine Ratio 17.1 (6-22); Blood Urea Nitrogen 22 mg/dL (7-17); Calcium 8.8 mg/dL (8.4-10.2); Carbon Dioxide 26 mmol/L (22-32); Chloride 94 mmol/L (98-107); Estimated Glomerular Filt Rate 46 mL/min (>60); Globulin 3.4 g/dL (1.7-4.1); Glucose 114 mg/dL (80-110); HEMOLYSIS 33 (0-50); Lipase 22 U/L (23-300); Potassium 3.1 mmol/L (3.4-5.1); Sodium 130 mmol/L (137-145); Total Protein 7.4 g/dL (6.3-8.2)
[2023-03-19] MEDS: SODIUM CHLORIDE 0.9% 1,000 ML 1000 ML IV (12:37)
[2023-03-19] MEDS: POTASSIUM CHLORIDE 20 MEQ TAB 40 MEQ PO (12:37)
[2023-03-19] MEDS: cefTRIAXone 1,000 MG in SODIUM CHLORIDE 0.9% 100 ML 200 MG IV ×2 (14:12→18:38)
[2023-03-19 14:49] LABS: Magnesium 1.6 mg/dL (1.6-2.3)
--- NOTE | 2023-03-19 14:49 | PM.CN ---
History of Present Illness Consult details Date Patient Seen: 03/19/23 Time Patient Seen: 14:49 Chief complaint: body aches, trouble walking, ureteral stone/urinar Reason for consult: Infected ureteral stone Requesting provider: Desire Rai Narrative: I was asked to see this 63-year-old female regarding what turns out to be a urinary tract infection and a 6-7 mm left ureteral stone. Patient also has body aches, weakness, malaise, elevated creatinine and multiple other medical comorbidities. The patient reports that she is had difficulty here for a number of days. But today became increasingly weak and actually fell down she reports she did not lose consciousness. She is never had a kidney stone before and has had no pain. She was quite surprised by the diagnosis the workup in the emergency department revealed the stone as the patient had some abdominal pain turns out she has a 7 mm stone in the kidney and a 6 mm stone in the proximal left ureter. Has urine which looks very infected. White counts elevated at 20.7 and creatinine is also elevated from her baseline. Discussed cystoscopy with stent placement, procedure, risks, alternatives and the patient wishes to proceed understanding the benefits of eliminating any potential blockage in the left collecting system. The risks to include but not limited to bleeding, infection, injury to surrounding structures, failure to get the stent in, possible need for percutaneous nephrostomy, worsening of symptoms or illness. The need for future procedures, unforeseen and unpredictable complications in sequelae particularly given the patient's comorbidities. Patient voices understanding and acceptance of risks and wishes to proceed. After the procedure she will be under the care of the hospitalist Dr. Croft who will work to correct her other medical abnormalities and at a later date we will work toward treating her stones. The patient has received ceftriaxone. Meds Home Medications and Allergies Home Medications Medication Instructions Recorded Confirmed Type esomeprazole magnesium 40 mg 40 mg PO QAM ##0 07/05/12 01/19/19 History capsule,delayed release (Nexium) fluoxetine 40 mg capsule (Prozac) 80 mg PO QDAY ##0 07/05/12 01/19/19 History furosemide 20 mg tablet 40 mg PO QAM ##0 07/05/12 01/19/19 History albuterol sulfate 90 mcg/actuation 2 puff inhalation Q4-6H PRN sob 10/09/18 01/19/19 History aerosol inhaler (ProAir HFA) cyclobenzaprine 10 mg tablet 10 mg PO TID PRN Muscle Spasm 10/09/18 01/19/19 History fluticasone propionate 110 2 puff inhalation QAM 10/09/18 01/19/19 History mcg/actuation HFA aerosol inhaler (Flovent HFA) fluticasone propionate 50 2 spray intranasal DAILY 10/09/18 01/19/19 History mcg/actuation nasal spray,suspension (Flonase Allergy Relief) isosorbide mononitrate 60 mg 60 mg PO QAM 10/09/18 01/19/19 History tablet,extended release 24 hr levothyroxine 125 mcg tablet 125 mcg PO DAILY 10/09/18 01/19/19 History (Synthroid) omeprazole 20 mg capsule,delayed 20 mg PO DAILY 10/09/18 01/19/19 History release propranolol 20 mg tablet 20 mg PO TID Anxiety 10/09/18 01/19/19 History simvastatin 20 mg tablet 20 mg PO QAM 10/09/18 01/19/19 History acetaminophen 325 mg tablet 650 mg PO Q6HR PRN Pain, Mild 10/14/18 01/19/19 Rx (1-3) #0 tabs docusate sodium 100 mg capsule 100 mg PO BID #0 caps 10/14/18 01/19/19 Rx hydroxyzine pamoate 25 mg capsule 25 mg PO Q4HR PRN Nausea And 10/14/18 01/19/19 Rx Vomiting #60 caps oxycodone 5 mg tablet 5 mg PO Q4-6H PRN pain #40 tabs 10/14/18 01/19/19 Rx acetaminophen 325 mg tablet 650 mg PO Q6HR PRN Pain, Mild 01/22/19 Rx (1-3) #0 tabs hydroxyzine pamoate 25 mg capsule 25 mg PO Q4HR PRN Nausea And 01/22/19 Rx Vomiting #40 caps oxycodone 5 mg tablet 5 mg PO Q4-6H PRN pain #40 tabs 01/22/19 Rx sulfamethoxazole 800 1 tab PO BID #20 tabs 02/01/19 Rx mg-trimethoprim 160 mg tablet (Bactrim DS) Allergies Allergy/AdvReac Type Severity Reaction Status Date / Time erythromycin base Allergy Severe Hives, Verified 03/19/23 09:41 [ERYTHROMYCIN BASE] syncope Review of Systems Review of Systems ROS: Yes All systems reviewed with the patient and are negative except as otherwise documented (And problem list) Exam Vital Signs (past 8 hours): - 03/19/23 09:41 Temperature 99.0 F Pulse Rate 72 Respiratory Rate 16 Blood Pressure 119/71 Pulse Oximetry 98 Oxygen Delivery Method Room Air Oxygen Delivery Method Room Air Narrative Exam Narrative: General: This is an awake, alert, uncomfortable appearing, oriented obese female lying on a gurney. Lungs: Clear full and equal Cardiovascular exam: Regular rate and rhythm without murmur Abdominal exam: Obese, soft, slightly tender especially on the left to percussion. Neurologic exam: Grossly intact Objective Labs 03/19/23 10:54 03/19/23 10:54 Labs: Laboratory Results - last 24 hr 03/19/23 03/19/23 03/19/23 10:54 10:54 10:54 WBC 20.7 H RBC 4.35 Hgb 12.5 Hct 36.9 MCV 84.8 MCH 28.8 MCHC 33.9 RDW 13.4 Plt Count 197 Neut % (Auto) 83.5 H Lymph % (Auto) 6.[address] [place] % (Auto) 10.2 Eos % (Auto) 0.0 L Baso % (Auto) 0.2 Neut # (Auto) [address] H Lymph # (Auto) 1300 [place] # (Auto) 2100 H Eos # (Auto) 0 Baso # (Auto) 0 Sodium 130 L Potassium 3.1 L Chloride 94 L Carbon Dioxide 26 BUN 22 H Creatinine 1.29 H Estimated GFR 46 L BUN/Creatinine Ratio 17.1 Glucose 114 H Lactate 1.4 Calcium 8.8 Total Bilirubin 1.0 AST 39 H ALT 28 Alkaline Phosphatase 93 Total Protein 7.4 Albumin 4.0 Globulin 3.4 Albumin/Globulin Ratio 1.2 Lipase Urine Color Urine Appearance Urine pH Ur Specific [place] Urine Protein Urine Glucose (UA) Urine Ketones Urine Occult Blood Urine Nitrate Urine Bilirubin Urine Urobilinogen Ur Leukocyte Esterase Urine RBC Urine WBC Ur Squamous Epith Cells Ur Transition Epith Cell Ur Renal Epithelial Cell Urine Bacteria Ur Culture Indicated? 03/19/23 03/19/23 10:54 11:00 WBC RBC Hgb Hct MCV MCH MCHC RDW Plt Count Neut % (Auto) Lymph % (Auto) [place] % (Auto) Eos % (Auto) Baso % (Auto) Neut # (Auto) Lymph # (Auto) [place] # (Auto) Eos # (Auto) Baso # (Auto) Sodium Potassium Chloride Carbon Dioxide BUN Creatinine Estimated GFR BUN/Creatinine Ratio Glucose Lactate Calcium Total Bilirubin AST ALT Alkaline Phosphatase Total Protein Albumin Globulin Albumin/Globulin Ratio Lipase 22 L Urine Color Yellow Urine Appearance Clear Urine pH 5.5 Ur Specific [place] 1.020 Urine Protein 1+ H Urine Glucose (UA) Negative Urine Ketones Negative Urine Occult Blood 3+ H Urine Nitrate Positive H Urine Bilirubin Negative Urine Urobilinogen 1.0 Ur Leukocyte Esterase 3+ H Urine RBC None seen Urine WBC 30-100/hpf H Ur Squamous Epith Cells 0-1 /hpf Ur Transition Epith Cell 0-1/hpf Ur Renal Epithelial Cell 0-1/hpf Urine Bacteria Many (>30) H Ur Culture Indicated? Specimen cultured [facility] Medical History (Updated 03/19/23 @ 14:57 by Chuy Rosen MD) Arthritis Chronic neck and back pain Depression Difficulty swallowing Easy bruisability Elbow fracture, right Generalized edema GERD (gastroesophageal reflux disease) HTN (hypertension) Hyperlipidemia Left ureteral calculus Numbness and tingling Pinched nerve Severe anxiety Shortness of breath Sleep apnea Urinary tract infection Surgical History History of arthroplasty of right knee History of bilateral tubal ligation History of hysterectomy History of lumbar spinal fusion (10/13/18) Hx of cholecystectomy Hx of hernia repair Hx of partial thyroidectomy Hx of tonsillectomy S/P foot surgery, right Social History household members: spouse, family and children Tobacco & Substance Use Smoking Status: Never smoker alcohol intake: current Assessment & Plan Assessment and plan (1) Left nephrolithiasis: Status: Acute (2) EMILIANA (acute kidney injury): Status: Acute (3) Urinary tract infection: Qualifiers: Urinary tract infection type: acute cystitis Hematuria presence: without hematuria Qualified Code(s): N30.00 - Acute cystitis without hematuria Status: Acute (4) Left ureteral calculus: Status: Acute Plan Assessment and plan: Cystoscopy with left ureteral stent placement possible left retrograde pyelogram. Patient has been covered with ceftriaxone patient understands the procedure risks and alternatives. Patient will then be under the care of the hospitalist service. Time Spent With Patient Time with patient: 30 to 49 minutes with 50% spent counseling/coordinating care
--- NOTE | 2023-03-19 14:53 | SUR.OPER ---
Lithotomy on padded OR bed, head on pillow, arms secured on padded arm boards at <90 degrees abduction. Legs secured in padded yellow fins stirrups.
--- NOTE | 2023-03-19 14:58 | PM.PREOP ---
Pre-operative Note COVID-19 COVID-19 status: Not tested Criteria for continued procedure: Delay expected to result in less-positive ultimate med/surg outcome and Non-surgical alternatives not available or appropriate per current SOC Interval Note History & Physical reviewed/Exam performed by Physician: Yes Changes to H&P: No
[2023-03-19 15:21] LABS: TSH w/ Reflex to FT4 < 0.02 uIU/mL (0.47-4.68)
[2023-03-19] MEDS: ACETAMINOPHEN IV 1,000 MG/100 ML VIAL 400 MG IV (15:28)
--- NOTE | 2023-03-19 15:40 | SUR.HOLD ---
Notified Anesthesiologist and Dr Rosen of oral temp of 101.4; acetaminophen IV ordered and initiated in pre-op holding area.
[2023-03-19 15:45] LABS: Free T4, Direct Thyroxine 1.78 ng/dL (0.78-2.19)
--- NOTE | 2023-03-19 16:10 | P.OP_ITS ---
Procedure & Clinicians Procedure: Cystoscopy with left ureteral stent placement Same procedure as scheduled: Yes Indications: This 63-year-old female had presented to the emergency room with complaints of weakness malaise fever abdominal pain. Through workup she was found to have an obstructing left ureteral calculus and grossly infected urine. She received Rocephin and his brought to the operating room for cystoscopy with left ureteral stent placement to relieve any obstruction from the left collecting system. Surgeon: Chuy Rosen Click Yes if Unassisted: Yes Anesthesia Type: General Operative Notes Findings: External genitalia were normal. Urethral meatus was normal with a small caruncle urethra was normal along its length throughout the bladder there was evidence of cystitis with cystitis cystica and some areas of cystitis glandularis. Ureteral orifices in normal position with clear efflux the trigone exhibited evidence of estrogenization. There were no mucosal lesions. After placement of the stent there was efflux of some purulent material though it was minimal and this was followed by efflux of clear urine. There was a faint pelvic calyceal gram from retained contrast given at the time of her CT. Once the stent was placed this evacuated quite quickly. The ureteral stone was noted in the proximal 3rd of the ureter and the lower pole calculus was not distinctly seen. There were no other abnormalities a 7 [place] by multi length stent was left in good position in the left collecting system with no string. Closure Type: not applicable Specimen(s): none sent Applied: other (Seven [place] by multi length stent left collecting system no string) Blood products transfused: none Procedure in detail: Procedure in detail: After informed consent was obtained, the patient was identified and brought to the operating room where she was placed in supine position on the table. Once there anesthesia was induced and maintained. Ensuring an adequate level of anesthesia the patient was transferred to the lithotomy position where she was prepped, draped, prepared for Transurethral procedure. After prepping, draping, ensuring an adequate level of anesthesia and time-out a 22 cystoscope was passed through the urethra and into the bladder where cystoscopy was performed with the 30 and 70 degree lens. The left ureteral orifice was once again identified and a hybrid wire was passed up and into the collecting system on the left with fluoroscopic visualization and guidance. The stent was then passed over the wire and a coaxial fashion pos ition of the renal pelvis under fluoroscopic visualization in the bladder under direct vision. The wire was removed followed by the nylon harness the stent was left in good position. It was observed for efflux and as noted above in the findings the efflux was observed. With the stent in good position the bladder was drained the scope was removed and the patient was awakened having tolerated the procedure well patient will be transferred to the postanesthesia care unit and then to the acute care giraldo under the care of Dr. Juan Croft the hospitalist. The patient will follow-up in my office once the dust as settled and we will attend to treating her 2 stones. Complications: none Post-operative Condition: stable Disposition: PACU Plan for aftercare: Patient will be under the care of the hospitalist Dr. Croft
[2023-03-19] MEDS: ALBUTEROL/IPRATROPIUM 3 ML AMPUL INH (16:40)
[2023-03-19] MEDS: LACTATED RINGERS 1,000 ML 100 ML IV ×2 (17:16→17:17)
[2023-03-19] MEDS: SODIUM CHLORIDE 0.9% 1,000 ML 100 ML IV (18:38)
--- NOTE | 2023-03-19 18:39 | PM.HP.1 ---
History of Present Illness History of Present Illness Date Patient Seen: 03/19/23 Time Patient Seen: 18:40 Chief complaint: body aches, trouble walking, ureteral stone/urinar Narrative: Kathy Barton is a 63yo F with PMH of HTN, HLD, GERD, hypothyroidism, CELSO not using CPAP, depression and anxiety who presents with weakness. She states 3 days ago she developed progressive weakness to the point where she couldn't walk today so she came to the ED. In the ED she was found to have pyelo with pyuria, fever and WBC 20. CT KUB showed impacted left kidney stone with hydronephrosis. Urology consulted and took for stent placement. After her procedure the patient states she is feeling much better. She can walk to the bathroom and back. She overall denies urinary symptoms or flank pain. She also denies cough, SOB, sore throat, abd pain, CP or diarrhea. [facility] Medical History (Updated 03/19/23 @ 14:57 by Chuy Rosen MD) Arthritis Chronic neck and back pain Depression Difficulty swallowing Easy bruisability Elbow fracture, right Generalized edema GERD (gastroesophageal reflux disease) HTN (hypertension) Hyperlipidemia Left ureteral calculus Numbness and tingling Pinched nerve Severe anxiety Shortness of breath Sleep apnea Urinary tract infection Surgical History History of arthroplasty of right knee History of bilateral tubal ligation History of hysterectomy History of lumbar spinal fusion (10/13/18) Hx of cholecystectomy Hx of hernia repair Hx of partial thyroidectomy Hx of tonsillectomy S/P foot surgery, right Social History household members: spouse, family and children Smoking Status: Never smoker alcohol intake: current Meds Home Medications and Allergies Home Medications Medication Instructions Recorded Confirmed Type esomeprazole magnesium 40 mg 40 mg PO QAM ##0 07/05/12 03/19/23 History capsule,delayed release (Nexium) furosemide 20 mg tablet 40 mg PO QAM ##0 07/05/12 03/19/23 History albuterol sulfate 90 mcg/actuation 2 puff inhalation Q4-6H PRN sob 10/09/18 03/19/23 History aerosol inhaler (ProAir HFA) cyclobenzaprine 10 mg tablet 10 mg PO TID PRN Muscle Spasm 10/09/18 03/19/23 History fluticasone propionate 110 2 puff inhalation QAM 10/09/18 03/19/23 History mcg/actuation HFA aerosol inhaler (Flovent HFA) fluticasone propionate 50 2 spray intranasal DAILY 10/09/18 01/19/19 History mcg/actuation nasal spray,suspension (Flonase Allergy Relief) isosorbide mononitrate 60 mg 60 mg PO QAM 10/09/18 03/19/23 History tablet,extended release 24 hr levothyroxine 125 mcg tablet 125 mcg PO DAILY 10/09/18 03/19/23 History (Synthroid) omeprazole 20 mg capsule,delayed 20 mg PO DAILY 10/09/18 01/19/19 History release propranolol 20 mg tablet 20 mg PO TID Anxiety 10/09/18 01/19/19 History simvastatin 20 mg tablet 20 mg PO QAM 10/09/18 03/19/23 History acetaminophen 325 mg tablet 650 mg PO Q6HR PRN Pain, Mild 10/14/18 03/19/23 Rx (1-3) #0 tabs hydroxyzine pamoate 25 mg capsule 25 mg PO Q4HR PRN Nausea And 10/14/18 03/19/23 Rx Vomiting #60 caps hydroxyzine pamoate 25 mg capsule 25 mg PO Q4HR PRN Nausea And 01/22/19 Rx Vomiting #40 caps Allergies Allergy/AdvReac Type Severity Reaction Status Date / Time erythromycin base Allergy Severe Hives, Verified 03/19/23 15:02 [ERYTHROMYCIN BASE] syncope Review of Systems Review of Systems Narrative: All other systems reviewed with the patient and are negative unless otherwise stated. Exam Vital Signs (past 8 hours): - 03/19/23 15:38 03/19/23 12:38 03/19/23 12:39 Temperature 101.4 F H Pulse Rate 78 83 84 Respiratory Rate 16 Blood Pressure 170/90 H Pulse Oximetry 96 97 Oxygen Delivery Method Room Air Oxygen Flow Rate 03/19/23 12:39 03/19/23 13:00 03/19/23 13:00 Temperature Pulse Rate 82 Respiratory Rate Blood Pressure 124/55 L 127/67 Pulse Oximetry 95 Oxygen Delivery Method Oxygen Flow Rate 03/19/23 13:30 03/19/23 14:13 03/19/23 14:14 Temperature Pulse Rate 91 H 82 83 Respiratory Rate Blood Pressure Pulse Oximetry 98 95 97 Oxygen Delivery Method Oxygen Flow Rate 03/19/23 14:14 03/19/23 14:30 03/19/23 16:21 Temperature 100.4 F H Pulse Rate 84 100 H Respiratory Rate 20 Blood Pressure 140/63 91/55 L Pulse Oximetry 97 98 Oxygen Delivery Method Simple Mask Oxygen Flow Rate 8 03/19/23 16:25 03/19/23 16:34 03/19/23 17:05 Temperature 100.4 F H Pulse Rate 94 H 105 H 92 H Respiratory Rate 14 21 17 Blood Pressure 100/53 L 81/41 L 138/70 Pulse Oximetry 97 95 93 Oxygen Delivery Method Simple Mask Nasal Cannula Nasal Cannula Oxygen Flow Rate 8 2 2 03/19/23 17:19 03/19/23 16:50 03/19/23 17:45 Temperature 100.2 F H 99.7 F H 98.4 F Pulse Rate 90 88 88 Respiratory Rate 13 16 18 Blood Pressure 140/70 135/70 97/40 L Pulse Oximetry 97 97 96 Oxygen Delivery Method Nasal Cannula Nasal Cannula Oxygen Flow Rate 2 2 0 03/19/23 18:34 Temperature 98.4 F Pulse Rate 79 Respiratory Rate 18 Blood Pressure 103/49 L Pulse Oximetry 95 Oxygen Delivery Method Oxygen Flow Rate 0 Oxygen Delivery Method Nasal Cannula Oxygen Flow Rate 0 Narrative Exam Narrative: GEN: no acute distress, obese HEENT: moist mucous membranes, PERRL NECK: trachea midline, no JVD CV: regular rate and rhythm, no murmurs PULM: clear bilaterally ABD: soft, nontender, nondistended, no organomegaly EXT: warm and well perfused with no edema NEURO: awake, alert, oriented, no focal deficits Objective Labs 03/19/23 10:54 03/19/23 10:54 Labs: Laboratory Results - last 24 hr 03/19/23 03/19/23 03/19/23 10:54 10:54 10:54 WBC 20.7 H RBC 4.35 Hgb 12.5 Hct 36.9 MCV 84.8 MCH 28.8 MCHC 33.9 RDW 13.4 Plt Count 197 Neut % (Auto) 83.5 H Lymph % (Auto) 6.1 L [place] % (Auto) 10.2 Eos % (Auto) 0.0 L Baso % (Auto) 0.2 Neut # (Auto) 84129 H Lymph # (Auto) 1300 [place] # (Auto) 2100 H Eos # (Auto) 0 Baso # (Auto) 0 Sodium 130 L Potassium 3.1 L Chloride 94 L Carbon Dioxide 26 BUN 22 H Creatinine 1.29 H Estimated GFR 46 L BUN/Creatinine Ratio 17.1 Glucose 114 H Lactate 1.4 Calcium 8.8 Magnesium Total Bilirubin 1.0 AST 39 H ALT 28 Alkaline Phosphatase 93 Total Protein 7.4 Albumin 4.0 Globulin 3.4 Albumin/Globulin Ratio 1.2 Lipase TSH Free T4 Urine Color Urine Appearance Urine pH Ur Specific [place] Urine Protein Urine Glucose (UA) Urine Ketones Urine Occult Blood Urine Nitrate Urine Bilirubin Urine Urobilinogen Ur Leukocyte Esterase Urine RBC Urine WBC Ur Squamous Epith Cells Ur Transition Epith Cell Ur Renal Epithelial Cell Urine Bacteria Ur Culture Indicated? 03/19/23 03/19/23 03/19/23 10:54 10:54 10:54 WBC RBC Hgb Hct MCV MCH MCHC RDW Plt Count Neut % (Auto) Lymph % (Auto) [place] % (Auto) Eos % (Auto) Baso % (Auto) Neut # (Auto) Lymph # (Auto) [place] # (Auto) Eos # (Auto) Baso # (Auto) Sodium Potassium Chloride Carbon Dioxide BUN Creatinine Estimated GFR BUN/Creatinine Ratio Glucose Lactate Calcium Magnesium 1.6 Total Bilirubin AST ALT Alkaline Phosphatase Total Protein Albumin Globulin Albumin/Globulin Ratio Lipase 22 L TSH < 0.02 L Free T4 1.78 Urine Color Urine Appearance Urine pH Ur Specific [place] Urine Protein Urine Glucose (UA) Urine Ketones Urine Occult Blood Urine Nitrate Urine Bilirubin Urine Urobilinogen Ur Leukocyte Esterase Urine RBC Urine WBC Ur Squamous Epith Cells Ur Transition Epith Cell Ur Renal Epithelial Cell Urine Bacteria Ur Culture Indicated? 03/19/23 11:00 WBC RBC Hgb Hct MCV MCH MCHC RDW Plt Count Neut % (Auto) Lymph % (Auto) [place] % (Auto) Eos % (Auto) Baso % (Auto) Neut # (Auto) Lymph # (Auto) [place] # (Auto) Eos # (Auto) Baso # (Auto) Sodium Potassium Chloride Carbon Dioxide BUN Creatinine Estimated GFR BUN/Creatinine Ratio Glucose Lactate Calcium Magnesium Total Bilirubin AST ALT Alkaline Phosphatase Total Protein Albumin Globulin Albumin/Globulin Ratio Lipase TSH Free T4 Urine Color Yellow Urine Appearance Clear Urine pH 5.5 Ur Specific [place] 1.020 Urine Protein 1+ H Urine Glucose (UA) Negative Urine Ketones Negative Urine Occult Blood 3+ H Urine Nitrate Positive H Urine Bilirubin Negative Urine Urobilinogen 1.0 Ur Leukocyte Esterase 3+ H Urine RBC None seen Urine WBC 30-100/hpf H Ur Squamous Epith Cells 0-1 /hpf Ur Transition Epith Cell 0-1/hpf Ur Renal Epithelial Cell 0-1/hpf Urine Bacteria Many (>30) H Ur Culture Indicated? Specimen cultured Assessment & Plan Assessment & Plan narrative: # acute pyelonephritis -presented with WBC 20, febrile to 101 F, UA with pyuria. CT KUB with perinephric fat stranding -continue Rocephin 2 g daily -follow-up urine and blood cultures -plan to d/c on oral antibiotics following culture sensitivities to complete 10-14 day course # left proximal obstructing kidney stone with hydronephrosis s/p stent placement -CT KUB with 6 mm calculus and moderate left hydronephrosis -Dr. Rosen urology consulted and placed ureteral stent -follow-up with urology clinic for lithotripsy and stent removal # EMILIANA -creatinine 1.29 with baseline of 0.7 -IV fluids -avoid nephrotoxic agents -monitor creatinine # hypokalemia -potassium 3.1 -check Mag -replete potassium and monitor # hyponatremia -sodium 130, unclear if acute or chronic -continue IV fluids -daily BMPs # hypothyroidism -check TSH -continue home Synthroid # hyperlipidemia -continue home statin # GERD -continue PPI Code status is full code. DVT prophylaxis with heparin subQ. Proxy is daughter Emy. I have reviewed home meds and used all available resources to reconcile the home meds. This patient will be admitted as inpatient and will require greater than 2 midnights of hospital time to treat acute pyelonephritis.
[2023-03-19] MEDS: BUDESONIDE 0.5 MG/2 ML NEB INH (19:51)
[2023-03-19] MEDS: HEPARIN 5,000 UNIT/ML VIAL 5000 UNIT SUBCUT (21:06)
[2023-03-19] MEDS: DOCUSATE 100 MG CAPSULE PO (21:06)
[2023-03-19] MEDS: ATORVASTATIN 20 MG TABLET 10 MG PO (21:06)
--- NOTE | 2023-03-19 21:53 | PC.NURSE ---
Patient is alert and orientd. Breath sounds CTA with RA sat of 95% but states she has chronic SOB; is not dyspneic and able to speak in complete sentences. HRR with BP of 98/50 and patient is diaphoretic but otherwise asymptomatic; denies chest pain/discomfort. Denies nausea. BT present and states she is passing flatus. Has chronic urinary frequency but is now complaining of dysuria as well; urine is pink tinged and is being strained. Is able to turn herself in bed. Up to bathroom with SBA. Wearing bilateral calf SCD's. Denies pain. Fall risk score is high and bed alarm is activated.
[2023-03-20 01:35] VITALS: BP 98/61; PULSE 65; RESP 18; TEMP 35.5; O2SAT 99
[2023-03-20 04:42] VITALS: BP 99/51; PULSE 73; RESP 18; TEMP 35.7; O2SAT 99
[2023-03-20] MEDS: LEVOTHYROXINE 125 MCG TABLET PO (05:52)
[2023-03-20] MEDS: PANTOPRAZOLE DR 40 MG TABLET PO (05:52)
[2023-03-20 06:32] LABS: Add Manual Diff / Slide Review NO; Basophils Absolute Auto 0 /uL (0-100); Basophils Percent Auto 0.1 % (0-2); Eosinophils Absolute Auto 0 /uL (0-450); Hematocrit 35.8 % (36-46); Hemoglobin 12.1 g/dL (12.0-16.0); Lymphocytes Absolute Auto 600 /uL (1100-4500); Lymphocytes Percent Auto 4.4 % (25-40); Mean Corpuscular HGB Conc 33.7 % (30-36); Mean Corpuscular Hemoglobin 28.7 PG (26-34); Mean Corpuscular Volume 85.1 fL (80-100); Monocytes Absolute Auto 600 /uL (0-900); Monocytes Percent Auto 4.3 % (3-14); Neutrophils Absolute Auto 11900 /uL (1500-7000); Neutrophils Percent Auto 91.2 % (50-75); Platelet Count 177 X10^3/uL (150-400); Red Blood Cell Count 4.21 X10^6/uL (4.0-5.2); Red Cell Distribution Width 13.1 % (11.6-14.8)
[2023-03-20 06:43] LABS: BUN Creatinine Ratio 22.2 (6-22); Blood Urea Nitrogen 24 mg/dL (7-17); Calcium 8.5 mg/dL (8.4-10.2); Carbon Dioxide 27 mmol/L (22-32); Chloride 103 mmol/L (98-107); Estimated Glomerular Filt Rate 57 mL/min (>60); Glucose 210 mg/dL (80-110); HEMOLYSIS < 15 (0-50); Potassium 3.4 mmol/L (3.4-5.1); Sodium 137 mmol/L (137-145)
--- NOTE | 2023-03-20 09:07 | CM.DANOTE ---
DCP: Case received, EMR reviewed and met with patient. Introduced self and role. Was able to obtain information regarding patient's baseline activity level prior to admission. DCP assessment completed with information currently available. Patient is a 63 year old female who admitted yesterday afternoon to the care of the hospitalist team. PCP: Dr. Catina Barriga. Payer: confirmed: [employer]. Patient came to the hospital via private vehicle secondary to worsening fatigue, weakness, urinary frequency and urgency. Patient was noted to have a 7mm nonobstructing kidney stone. Patient was noted to have acute pyelonephritis, and had surgery, stent placement, yesterday. Met with patient in her room. She was sitting up having breakfast, alert and oriented. Confirmed that her and spouse reside in [place], and she is independent at her baseline. She is employed at [employer]. She indicated, the only symptom that she really had was difficulty walking. P: DCP to continue to follow Patient should be able to go home when deemed medically stable, will have to see if she can discharge on oral ABO. Bonnie Jean RN/Ribbon Hand Discharge Planning/Care Management CM Discharge Assessment Start: 03/20/23 09:05 Freq: Status: Active Protocol: Document 03/20/23 09:05 (Rec: 03/20/23 09:07 [id number]) Discharge Planning Assessment Assigned [employer] Bonnie Jean RN/Ribbon Hand Advance Directives? No History Provided By Patient,Family Member,Medical Record Prior Living Arrangements House Household Members spouse,family,children Type of transporation used prior to Drives own vehicle admit Independent with ADL's Yes Is patient alert and oriented? Yes Caregiver for Another No Discharge Plan Home Transportation Arrangement Spouse/Chuck to provide transportation. Referrals Initiated None needed Whiteboard Updated in Patient Room with Yes name and ext. # of [employer] Review Status In Process Next Review Type Continued Stay Review
[2023-03-20] MEDS: DOCUSATE 100 MG CAPSULE PO ×2 (09:25→20:30)
[2023-03-20] MEDS: HEPARIN 5,000 UNIT/ML VIAL 5000 UNIT SUBCUT ×2 (09:25→20:31)
[2023-03-20] MEDS: CITALOPRAM 10 MG TABLET 20 MG PO (09:25)
[2023-03-20] MEDS: FUROSEMIDE 20 MG TABLET 40 MG PO (09:25)
[2023-03-20] MEDS: ISOSORBIDE MONONITRATE ER 30 MG TABLET 60 MG PO (09:25)
[2023-03-20] MEDS: OXYBUTYNIN 5 MG TABLET PO ×2 (09:25→20:30)
[2023-03-20] MEDS: BUDESONIDE 0.5 MG/2 ML NEB INH (09:27)
[2023-03-20 09:33] VITALS: O2SAT 98
[2023-03-20] MEDS: cefTRIAXone 2,000 MG in SODIUM CHLORIDE 0.9% 100 ML 200 MG IV (09:37)
[2023-03-20] MEDS: POTASSIUM CHLORIDE 20 MEQ TAB 40 MEQ PO (09:37)
[2023-03-20 12:16] VITALS: BP 115/50; PULSE 64; RESP 18; TEMP 36.2; O2SAT 97
--- NOTE | 2023-03-20 15:35 | P.PN_ITS ---
Subjective Subjective Interval history: Patient feels well today, no abdominal pain or shortness of breath. No nausea or vomiting. WBC and cr improving. No monroy in place. Exam Vital Signs (past 8 hours): - 03/20/23 09:33 03/20/23 10:59 03/20/23 12:16 Temperature 97.2 F L Pulse Rate 64 Respiratory Rate 18 Blood Pressure 115/50 L Pulse Oximetry 98 97 Oxygen Delivery Method Room Air Room Air Oxygen Flow Rate 0 Oxygen Delivery Method Room Air Oxygen Flow Rate 0 Narrative Exam Narrative: GEN: no acute distress, obese HEENT: moist mucous membranes, PERRL NECK: trachea midline, no JVD CV: regular rate and rhythm, no murmurs PULM: clear bilaterally ABD: soft, nontender, nondistended, no organomegaly EXT: warm and well perfused with no edema NEURO: awake, alert, oriented, no focal deficits Objective Labs 03/20/23 06:19 03/20/23 06:19 Labs: Laboratory Results - last 24 hr 03/19/23 03/20/23 03/20/23 10:54 06:19 06:19 WBC 13.0 H RBC 4.21 Hgb 12.1 Hct 35.8 L MCV 85.1 MCH 28.7 MCHC 33.7 RDW 13.1 Plt Count 177 Neut % (Auto) 91.2 H Lymph % (Auto) 4.4 L [place] % (Auto) 4.3 Eos % (Auto) 0.0 L Baso % (Auto) 0.1 Neut # (Auto) 02402 H Lymph # (Auto) 600 L [place] # (Auto) 600 Eos # (Auto) 0 Baso # (Auto) 0 Sodium 137 Potassium 3.4 Chloride 103 Carbon Dioxide 27 BUN 24 H Creatinine 1.08 H Estimated GFR 57 L BUN/Creatinine Ratio 22.2 H Glucose 210 H Calcium 8.5 Free T4 1.78 PFSH Medical History (Updated 03/19/23 @ 14:57 by Chuy Rosen MD) Arthritis Chronic neck and back pain Depression Difficulty swallowing Easy bruisability Elbow fracture, right Generalized edema GERD (gastroesophageal reflux disease) HTN (hypertension) Hyperlipidemia Left ureteral calculus Numbness and tingling Pinched nerve Severe anxiety Shortness of breath Sleep apnea Urinary tract infection Surgical History History of arthroplasty of right knee History of bilateral tubal ligation History of hysterectomy History of lumbar spinal fusion (10/13/18) Hx of cholecystectomy Hx of hernia repair Hx of partial thyroidectomy Hx of tonsillectomy S/P foot surgery, right Social History household members: spouse, family and children Smoking Status: Never smoker alcohol intake: current Assessment & Plan Assessment & Plan narrative: # acute pyelonephritis secondary to obstructing stone -presented with WBC 20, febrile to 101 F, UA with pyuria. CT KUB with perinephric fat stranding -continue Rocephin 2 g daily -follow-up urine and blood cultures. Urine cultures with gram negative bacilli and blood cultures without growth thus far. -plan to d/c on oral antibiotics following culture sensitivities to complete 10- 14 day course # left proximal obstructing kidney stone with hydronephrosis s/p stent placement -CT KUB with 6 mm calculus and moderate left hydronephrosis -Dr. Rosen urology consulted and placed ureteral stent -follow-up with urology clinic for lithotripsy and stent removal -no monroy in place currently. # EMILIANA -creatinine 1.29 with baseline of 0.7 -improving today, can stop IV fluids. -avoid nephrotoxic agents -monitor creatinine # hypokalemia -potassium 3.1 -check Mag -replete potassium and monitor # hyponatremia -sodium 130, unclear if acute or chronic -continue IV fluids -daily BMPs # hypothyroidism -check TSH -continue home Synthroid # hyperlipidemia -continue home statin # GERD -continue PPI Code status is full code. DVT prophylaxis with heparin subQ. Proxy is daughter Emy. I have reviewed home meds and used all available resources to reconcile the home meds. Dispo: probable discharge home tomorrow.
[2023-03-20 18:00] VITALS: BP 140/72; PULSE 82; RESP 18; TEMP 36.3; O2SAT 99
[2023-03-20 20:25] VITALS: BP 129/60; PULSE 66; RESP 18; TEMP 36.1; O2SAT 95
[2023-03-20] MEDS: SODIUM CHLORIDE 0.9% FLUSH 10 ML IV (20:31)
[2023-03-20] MEDS: ATORVASTATIN 20 MG TABLET 10 MG PO (20:31)
--- NOTE | 2023-03-20 23:49 | PC.NURSE ---
Patient is alert and oriented. Breath sounds CTA with RA sat of 95%. Has CELSO and unable to use CPAP so placed on oxygen at 1L/min per NC for overnight per RT recommendation. HRR. Denies nausea. BT present and had small, formed stool earlier this shift. Is voiding without dysuria although urine still appears to have a slight pink tinge. Is able to turn herself in bed. Up to bathroom with SBA related to recent fall but appears steady. Denies pain. Declined use of SCD's tonight so reminded to ankle wave. Fall risk score is high and bed alarm is activated.
[2023-03-21 00:20] VITALS: BP 120/63; PULSE 75; RESP 18; TEMP 36.5; O2SAT 97
[2023-03-21 05:00] VITALS: BP 130/64; PULSE 76; RESP 16; TEMP 36.6; O2SAT 96
[2023-03-21] MEDS: LEVOTHYROXINE 100 MCG TABLET PO (06:02)
[2023-03-21] MEDS: PANTOPRAZOLE DR 40 MG TABLET PO (06:02)
[2023-03-21] MEDS: LEVOTHYROXINE 75 MCG TABLET PO (06:02)
[2023-03-21 08:29] LABS: Add Manual Diff / Slide Review NO; Basophils Absolute Auto 0 /uL (0-100); Basophils Percent Auto 0.3 % (0-2); Eosinophils Absolute Auto 0 /uL (0-450); Eosinophils Percent Auto 0.3 % (2-4); Hematocrit 33.9 % (36-46); Hemoglobin 11.5 g/dL (12.0-16.0); Lymphocytes Absolute Auto 1700 /uL (1100-4500); Lymphocytes Percent Auto 12.1 % (25-40); Mean Corpuscular Hemoglobin 28.7 PG (26-34); Mean Corpuscular Volume 84.4 fL (80-100); Monocytes Absolute Auto 900 /uL (0-900); Monocytes Percent Auto 6.3 % (3-14); Neutrophils Absolute Auto 11400 /uL (1500-7000); Platelet Count 210 X10^3/uL (150-400); Red Blood Cell Count 4.02 X10^6/uL (4.0-5.2); Red Cell Distribution Width 13.1 % (11.6-14.8); White Blood Cell Count 14.1 X10^3/uL (4.5-11.0)
[2023-03-21 08:46] LABS: BUN Creatinine Ratio 22.6 (6-22); Blood Urea Nitrogen 24 mg/dL (7-17); Calcium 8.7 mg/dL (8.4-10.2); Carbon Dioxide 31 mmol/L (22-32); Chloride 102 mmol/L (98-107); Estimated Glomerular Filt Rate 58 mL/min (>60); Glucose 118 mg/dL (80-110); HEMOLYSIS < 15 (0-50); Potassium 3.3 mmol/L (3.4-5.1); Sodium 138 mmol/L (137-145)
[2023-03-21 09:40] VITALS: PULSE 78; RESP 18
[2023-03-21] MEDS: BUDESONIDE 0.5 MG/2 ML NEB INH (09:40)
[2023-03-21] MEDS: HEPARIN 5,000 UNIT/ML VIAL 5000 UNIT SUBCUT (09:43)
[2023-03-21] MEDS: ISOSORBIDE MONONITRATE ER 30 MG TABLET 60 MG PO (09:44)
[2023-03-21] MEDS: OXYBUTYNIN 5 MG TABLET PO (09:44)
[2023-03-21] MEDS: DOCUSATE 100 MG CAPSULE PO (09:44)
[2023-03-21] MEDS: CITALOPRAM 10 MG TABLET 20 MG PO (09:44)
[2023-03-21] MEDS: POTASSIUM CHLORIDE 20 MEQ TAB 40 MEQ PO (09:44)
[2023-03-21] MEDS: FUROSEMIDE 20 MG TABLET 40 MG PO (09:44)
--- NOTE | 2023-03-21 09:49 | P.DS_ITS ---
History of Present Illness History of Present Illness Date Patient Seen: 03/21/23 Time Patient Seen: 09:49 Chief complaint: body aches, trouble walking, ureteral stone/urinar Narrative: Per admitting provider, Kathy Barton is a 63yo F with PMH of HTN, HLD, GERD, hypothyroidism, CELSO not using CPAP, depression and anxiety who presents with weakness. She states 3 days ago she developed progressive weakness to the point where she couldn't walk today so she came to the ED. In the ED she was found to have pyelo with pyuria, fever and WBC 20. CT KUB showed impacted left kidney stone with hydronephrosis. Urology consulted and took for stent placement. After her procedure the patient states she is feeling much better. She can walk to the bathroom and back. She overall denies urinary symptoms or flank pain. She also denies cough, SOB, sore throat, abd pain, CP or diarrhea. Discharge Providers Provider Date of admission: 03/19/23 14:18 Discharge Date: 03/21/23 Primary care physician: Catina Barriga MD Consults: 03/19/23 14:19 Consult to Urology Stat Comment: Consulting Provider: Chuy Rosen Reason for consultation: left hydro with impacted kidney stone Has provider been notified: Yes Discharge provider: Navid Figueroa DO Summary Hospital Course Discharge Diagnosis: ?#acute pyelonephritis secondary to obstructing stone, sepsis ruled out # left proximal obstructing kidney stone with hydronephrosis s/p stent placement # EMILIANA, improved # hypokalemia, improved # hyponatremia, improved # hypothyroid # hyperlipidemia # GERD Hospital Course: This is a 63 year old female admitted for acute pyelonephritis with left obstructing kidney stone. She was taken immediately with urology for stent placement, and creatinine slowly improved over the course of her stay after antibiotics and fluids were given. Leuokocytosis also continued to improve with ceftriaxone. Shortly after her urological stent placement, her symptoms had markedly improved. Urine cultures grew a weiner-sensitive E. coli and the patient will complete antibiotic therapy with another 10 days of amoxicillin -pot clavulanate at home based on cultures. No monroy was in place after her urological procedures. She will follow up with urology as an outpatient for stone and stent removal in the near future. Creatinine improved from 1.29 to 1.08 on the day of discharge. SOFA score was 1 based on her elevated creatinine, with sepsis being ruled out. No other changes were recommended to her home medications at the time of discharge. Time Spent with Patient Time spent: Greater than 30 minutes Exam Vital Signs (past 8 hours): - 03/21/23 05:00 Temperature 97.9 F Pulse Rate 76 Respiratory Rate 16 Blood Pressure 130/64 Pulse Oximetry 96 Oxygen Flow Rate 1 Oxygen Delivery Method Room Air Oxygen Flow Rate 1 Narrative Exam Narrative: GEN: no acute distress, obese HEENT: moist mucous membranes, PERRL NECK: trachea midline, no JVD CV: regular rate and rhythm, no murmurs PULM: clear bilaterally ABD: soft, nontender, nondistended, no organomegaly EXT: warm and well perfused with no edema NEURO: awake, alert, oriented, no focal deficits Objective Labs 03/21/23 08:13 03/21/23 08:13 Labs: Laboratory Results - last 24 hr 03/21/23 03/21/23 08:13 08:13 WBC 14.1 H RBC 4.02 Hgb 11.5 L Hct 33.9 L MCV 84.4 MCH 28.7 MCHC 34.0 RDW 13.1 Plt Count 210 Neut % (Auto) 81.0 H Lymph % (Auto) 12.1 L [place] % (Auto) 6.3 Eos % (Auto) 0.3 L Baso % (Auto) 0.3 Neut # (Auto) 61949 H Lymph # (Auto) 1700 [place] # (Auto) 900 Eos # (Auto) 0 Baso # (Auto) 0 Sodium 138 Potassium 3.3 L Chloride 102 Carbon Dioxide 31 BUN 24 H Creatinine 1.06 H Estimated GFR 58 L BUN/Creatinine Ratio 22.6 H Glucose 118 H Calcium 8.7 PFSH Medical History (Updated 03/19/23 @ 14:57 by Chuy Rosen MD) Arthritis Chronic neck and back pain Depression Difficulty swallowing Easy bruisability Elbow fracture, right Generalized edema GERD (gastroesophageal reflux disease) HTN (hypertension) Hyperlipidemia Left ureteral calculus Numbness and tingling Pinched nerve Severe anxiety Shortness of breath Sleep apnea Urinary tract infection Surgical History History of arthroplasty of right knee History of bilateral tubal ligation History of hysterectomy History of lumbar spinal fusion (10/13/18) Hx of cholecystectomy Hx of hernia repair Hx of partial thyroidectomy Hx of tonsillectomy S/P foot surgery, right Social History household members: spouse, family and children Smoking Status: Never smoker alcohol intake: current Discharge Plan Discharge Plan Patient Disposition: Home Provider Discharge Comment: You were admitted to the hospital with a UTI and a kidney stone. A stent was placed, please call urology office for additional follow up for stent and stone removal next week if they do not call you. No other changes to your home medications are recommended otherwise. Discharge orders & Medications Prescriptions: New potassium chloride 20 mEq tablet extended release 20 meq PO DAILY 30 Days Qty: 30 0RF amoxicillin-pot clavulanate 875-125 mg tablet 1 tab PO BID 10 Days Qty: 20 0RF Continued furosemide 20 MG tablet 40 mg PO QAM Qty: 0 esomeprazole magnesium [Nexium] 40 MG capsule,delayed release(DR/EC) 40 mg PO QAM Qty: 0 meloxicam 7.5 mg tablet 7.5 mg PO QAM citalopram 20 mg tablet 20 mg PO QAM colchicine [Colcrys] 0.6 mg tablet 0.6 mg PO QAM oxybutynin chloride 5 mg tablet 5 mg PO BID Patient Comments: Take 1 tablet by mouth twice a day levothyroxine [Synthroid] 125 mcg Tablet 175 mcg PO DAILY Patient Comments: Pt uses Synthyroid, not generic cyclobenzaprine 10 mg Tablet 10 mg PO TID PRN (Reason: Muscle Spasm) isosorbide mononitrate 60 mg Tablet Extended Release 24 Hr 60 mg PO QAM simvastatin 20 mg Tablet 20 mg PO QAM omeprazole 20 mg Capsule,Delayed Release(Dr/Ec) 20 mg PO DAILY albuterol sulfate [ProAir HFA] 90 mcg/actuation Hfa Aerosol Inhaler 2 puff INHALATION Q4-6H PRN (Reason: sob) fluticasone propionate [Flonase Allergy Relief] 50 mcg/actuation [place],Suspension 2 spray INTRANASAL DAILY acetaminophen 325 mg Tablet 650 mg PO Q6HR PRN (Reason: Pain, Mild (1-3)) Qty: 0 0RF Medication counseling provided by Pharmacist: Yes Follow up/Referrals: Chuy Rosen MD [Physician] - 2 Weeks (s/p stent placement for obstructive uropathy) Catina Barriga MD [Primary Care Provider] - Diet/Activity/Treatments Diet: Diet as Tolerated Diet comment: No restrictions Activity: As tolerated no restrictions Visit Report/Discharge Packet Instructions: DI for Cystoscopy, DI for Urinary Tract Infection (UTI), DI for Ureteral Stent Placement Stand Alone Forms: Patient Portal/API, Stroke Signs & Symptoms, Surgery Discharge Discharge Data Primary Care Provider: Catina Barriga Discharges patient from system. Discharge Date/Time: 03/21/23 11:36
[2023-03-21] MEDS: SODIUM CHLORIDE 0.9% FLUSH 10 ML IV (09:50)
[2023-03-21] MEDS: cefTRIAXone 2,000 MG in SODIUM CHLORIDE 0.9% 100 ML 200 MG IV (10:01)
--- NOTE | 2023-03-21 11:25 | PC.NURSE ---
Day shift: Paperwork signed and all questions answered. scripts sent to Pt's pharmacy. Pt voiding well with no pain and clear yellow urine. NO nausea. VS WNL. Left unit via WC at approx 1120. Ambulating well and steady on feet. Encouraged to f/u with DR Silas JOSEPH. Pt's SPouse is driving her home.
== END 2023-03-21 11:36 | disposition home or self-care (01) | DRG 660 ==
LOC: ED 14:18 → AC 14:18
PROVIDERS: Emergency Medicine; Urology; Admitting Provider Student in an Organized Health Care Education/Training Program; Emergency Provider Student in an Organized Health Care Education/Training Program; Family Provider Orthopaedic Surgery Orthopaedic Surgery of the Spine; PCP Internal Medicine; Referring Provider Student in an Organized Health Care Education/Training Program; Visit Provider Student in an Organized Health Care Education/Training Program
PROC: 0T778DZ Dilation of Left Ureter with Intraluminal Device, Via Natural or Artificial Opening Endoscopic (ICD-10-PCS; principal; 2023-03-19 15:00)
DX: N13.6 Pyonephrosis (principal); E87.1 Hypo-osmolality and hyponatremia; N17.9 Acute kidney failure, unspecified; E87.6 Hypokalemia; E03.9 Hypothyroidism, unspecified; E78.5 Hyperlipidemia, unspecified; K21.9 Gastro-esophageal reflux disease without esophagitis; B96.20 Unspecified Escherichia coli [E. coli] as the cause of diseases classified elsewhere; F32.A Depression, unspecified; Z20.822 Contact with and (suspected) exposure to COVID-19
CPT/HCPCS: 36415; 52332; 74177; 76000; 80048; 80053; 81001; 83605; 83690; 83735; 84439; 84443; 85025; 87040; 87077; 87086; 87186; 94640; 96365; 99232; 99284; 99285; J0131; J0330; J0696; J1100; J1644; J1885; J2405; J2704; J3010; Q9967

== ENCOUNTER → 2023-04-10 13:13 | Outpatient (CLI) | payer MEDICARE, OTHER, SELFPAY ==
[2023-03-28 08:45] VITALS: BMI 45.5
--- NOTE | 2023-04-10 13:15 | DI.RAD.S_ITS ---
PROCEDURE: XR KUB INDICATIONS: History of Kidney Stones TECHNIQUE: One view of the abdomen acquired. COMPARISON: [facility], CT, CT ABDOMEN PELVIS W CON, 03/19/2023, 12:27. FINDINGS: Herniorrhaphy fasteners noted overlying the entire abdomen. The left-sided double-J ureteral stent in place. Left-sided 9 mm calculus noted over the renal pelvis. Ureteral calculus not visualized. Right renal shadow obscured by fecal debris Lower lumbar spine milan and screw instrumentation IMPRESSION: Double-J left ureteral stent in place. Ureteral calculus no longer visualized. 9 mm calculus projects over the left renal collecting system. Herniorrhaphy Approved by: Josue Gaston M.D. on 04/10/2023 at 18:51
== END ==
PROVIDERS: Family Provider Orthopaedic Surgery Orthopaedic Surgery of the Spine; PCP Internal Medicine; Referring Provider Urology; Visit Provider Urology
DX: N30.00 Acute cystitis without hematuria (principal); N20.2 Calculus of kidney with calculus of ureter; Z96.0 Presence of urogenital implants
CPT/HCPCS: 51798; 74018; 81002; 87086; 99214

== ENCOUNTER → 2023-04-10 15:11 | Outpatient (CLI) | payer MEDICARE, OTHER, SELFPAY ==
[2023-03-28 08:45] VITALS: BMI 45.5
== END ==
PROVIDERS: Family Provider Orthopaedic Surgery Orthopaedic Surgery of the Spine; PCP Internal Medicine; Visit Provider Urology
DX: N20.2 Calculus of kidney with calculus of ureter (principal); N39.0 Urinary tract infection, site not specified
CPT/HCPCS: 87086

== ENCOUNTER 2023-04-16 06:32 | Day surgery (SDC) | payer MEDICARE, OTHER, SELFPAY ==
[2023-03-28 08:45] VITALS: BMI 45.5
[2023-04-16 06:56] VITALS: BMI 43.4
[2023-04-16 07:08] VITALS: BP 142/83; PULSE 92; RESP 19; TEMP 36.2; O2SAT 99
[2023-04-16] MEDS: LACTATED RINGERS 1,000 ML 21 ML IV (07:11)
--- NOTE | 2023-04-16 07:38 | PM.PREOP ---
Pre-operative Note COVID-19 COVID-19 status: Not tested Criteria for continued procedure: Non-surgical alternatives not available or appropriate per current SOC Interval Note History & Physical reviewed/Exam performed by Physician: Yes Changes to H&P: No
[2023-04-16] MEDS: CEFAZOLIN 2 GM/100 ML PREMIX 100 ML IV (07:50)
--- NOTE | 2023-04-16 08:39 | PM.OP.1 ---
Procedure & Clinicians Procedure: Left extracorporeal shockwave lithotripsy Same procedure as scheduled: Yes Indications: This is a 63-year-old female who presented with colic impaired renal function and apparent infection and had a stent placed. She was noted to have 2 stones at that time she presents this time with her other issues having cleared for treatment of the stones by extracorporeal shockwave lithotripsy. Surgeon: Chuy Rosen Click Yes if Unassisted: Yes Anesthesia Type: General Operative Notes Findings: The patient's stent was in good position. One stone was noted to be at the UPJ the other was in the mid kidney. The lower stone was treated with 1000 shocks at level 7 and appeared well fragmented. The 2nd stone was also treated with 1000 shocks and appeared to fragment quite well also. There was no other abnormality noted. Closure Type: not applicable Specimen(s): none sent Estimated Blood Loss (mL): 0 Procedure in detail: Procedure in detail: After informed consent was obtained, the patient was identified and brought to the operating room where she was placed in his supine position on the Lithotripter. Patient then had anesthesia induced and maintained. After ensuring an adequate level of anesthesia, time-out the procedure was initiated. The lower stone was placed at F1 via the targeting system shockwave delivered at level 7 with periodic reimaging and re localization to ensure maximal energy delivered to the stone. A 1000 shocks the shockwave head was rotated out and fluoroscopy performed it appeared to show that the stone was well fragmented. Attention was then turned to the 2nd mid kidney stone it was positioned at F1 via the imaging system shockwave delivered at level 7 for a 1000 shocks. Shockwave head was once again rotated out and fluoroscopy performed minute appeared the stone was well fragmented. At this point the patient was awakened having tolerated the procedure well she was transferred to the post anesthesia care unit for recovery and there were no complications. Patient will follow-up my office in 10-14 days she will strain her urine and save any fragments that she catches to bring to follow-up. Complications: none Post-operative Condition: stable Disposition: PACU Plan for aftercare: Strain all urine save fragments follow-up my office 10-14 days
[2023-04-16 08:41] VITALS: BP 159/106; PULSE 99; RESP 18; TEMP 36.2; O2SAT 84
[2023-04-16 08:47] VITALS: BP 134/77; PULSE 94; RESP 10; O2SAT 99
[2023-04-16 08:52] VITALS: BP 129/76; PULSE 94; RESP 19; O2SAT 100
[2023-04-16 08:57] VITALS: BP 131/75; PULSE 92; RESP 10; TEMP 35.6; O2SAT 98
[2023-04-16 08:58] VITALS: BP 134/75; PULSE 91; RESP 10; O2SAT 97
--- NOTE | 2023-04-16 09:11 | SUR.PHASEII ---
DC instructions given. strainer and urine collection hat and specimen cup sent with patient and . denies pain, denies N/V
== END 2023-04-16 09:30 | disposition home or self-care (01) ==
PROVIDERS: Family Provider Orthopaedic Surgery Orthopaedic Surgery of the Spine; PCP Internal Medicine; Referring Provider Urology; Visit Provider Urology
PROC: (CPT 50590; principal; 2023-04-16 07:45)
DX: N20.0 Calculus of kidney (principal); I10 Essential (primary) hypertension
CPT/HCPCS: 50590; J0330; J0690; J1100; J2405; J2704; J3010

== ENCOUNTER → 2023-04-30 13:51 | Outpatient (CLI) | payer MEDICARE, OTHER, SELFPAY ==
[2023-03-28 08:45] VITALS: BMI 45.5
--- NOTE | 2023-04-30 13:53 | DI.RAD.S_ITS ---
PROCEDURE: XR KUB INDICATIONS: Kidney stones/retained stent TECHNIQUE: One view of the abdomen acquired. COMPARISON: [facility], CR, XR KUB, 04/10/2023, 13:16. FINDINGS: Surgical changes and devices: Multiple herniorrhaphy clips noted throughout the abdomen and pelvis. Double-J left ureteral stent appears similar in position. Lower lumbosacral spine fixation hardware incompletely evaluated. Bowel: Bowel gas pattern is normal. Soft tissues: No suspicious abdominal calcifications. Visualized solid organ contours appear normal in size. Bones: No suspicious bony lesions. IMPRESSION: Postsurgical changes as above and no definitive radiopaque renal, ureteral or bladder calculi. Dictated by: Artem CUNNINGHAM Interpreted: Danny Williamson MD on 04/30/2023 at 14:13 Approved by: Danny Williamson M.D. on 04/30/2023 at 21:09
== END ==
PROVIDERS: Family Provider Orthopaedic Surgery Orthopaedic Surgery of the Spine; PCP Internal Medicine; Referring Provider Urology; Visit Provider Urology
DX: N20.2 Calculus of kidney with calculus of ureter (principal); N39.0 Urinary tract infection, site not specified; Z96.0 Presence of urogenital implants; Z87.448 Personal history of other diseases of urinary system
CPT/HCPCS: 74018; 81002; 82365; 87077; 87086; 87186

== ENCOUNTER → 2023-04-30 14:54 | Outpatient (CLI) | payer MEDICARE, OTHER, SELFPAY ==
[2023-03-28 08:45] VITALS: BMI 45.5
[2023-05-09 13:40] LABS: Ca oxalate dihydrate 30 % (.); Ca oxalate monohydr 70 % (.)
== END ==
PROVIDERS: Family Provider Orthopaedic Surgery Orthopaedic Surgery of the Spine; PCP Internal Medicine; Visit Provider Urology
DX: N20.2 Calculus of kidney with calculus of ureter (principal); N39.0 Urinary tract infection, site not specified
CPT/HCPCS: 82365; 87086

== ENCOUNTER → 2023-05-10 09:08 | Outpatient (CLI) | payer MEDICARE, OTHER, SELFPAY ==
[2023-03-28 08:45] VITALS: BMI 45.5
--- NOTE | 2023-05-10 09:10 | DI.CT.S_ITS ---
PROCEDURE: CT ABDOMEN PELVIS WO CON INDICATIONS: Kidney stones TECHNIQUE: Axial sections were acquired from the lung bases to the pubic symphysis. Coronal and sagittal reformats were performed. For radiation dose reduction, the following was used: automated exposure control, adjustment of mA and/or kV according to patient size. COMPARISON: [facility], CT, CT ABDOMEN PELVIS W CON, 03/19/2023, 12:27. FINDINGS: Image quality: Excellent. Lung bases: Unremarkable. Heart: No significant findings. URINARY: Right Kidney: No stones or hydronephrosis. Right Ureter: No hydroureter. Left Kidney: There is interval placement of a left-sided ureteral stent. No hydronephrosis is seen on the current study. Punctate 2-3 mm nonobstructing stones are seen in left kidney. Mild left perinephric fat stranding is seen. 6 mm nonobstructing stone is seen in lower pole left kidney unchanged from prior study. Left Ureter: No hydroureter. Bladder: Urinary bladder is decompressed. No calcified bladder stone is seen. No gross bladder wall abnormalities. ABDOMEN: Liver: Hepatic steatosis is seen unchanged from prior study.. Gallbladder: Gallbladder is surgically absent. Biliary ducts: Unremarkable. Pancreas: Unremarkable. Spleen: Unremarkable. Adrenal Glands: Unremarkable. Stomach and Bowel: Extensive colonic diverticulosis is seen without colonic wall thickening or mesenteric fat stranding. No bowel obstruction. No gastric or small bowel wall thickening. No abscess collection. Peritoneum: No abnormal intraperitoneal fluid. No free air. Ventral Wall: Prior ventral hernia repair is seen with postsurgical changes.. No definite recurrent hernia is noted. Abdominal Nodes: No enlarged retroperitoneal or mesenteric lymph nodes. Vessels: Aorta and inferior vena cava are normal in size. PELVIS: Pelvic Organs: Unremarkable. Pelvic Nodes: Unremarkable. Miscellaneous: No inguinal hernias are seen. Bones: Postsurgical changes are noted in large lower lumbar spine from prior L4-5 and L5-S1 fusion. Degenerative disc disease throughout lumbar spine is seen. Chronic appearing anterior wedge compression deformity at L1 level is again noted and unchanged. No suspicious bony lesions. IMPRESSION: 1. Interval placement of a left-sided ureteral stent with interval resolution of previously noted left-sided hydronephrosis . Mild residual left perinephric fat stranding. No hydronephrosis or hydroureter is seen on the current study. 2. Nonobstructing stones are noted in left kidney as above. No right-sided renal stones or hydronephrosis. Decompressed urinary bladder shows no calcified bladder stones. 3. Sigmoid diverticulosis without CT evidence of acute diverticulitis. No abscess collection. No free fluid or free air. 4. Other findings as described above not significantly changed from prior study. Dictated by: Daniel Eaton M.D. on 05/10/2023 at 12:13 Approved by: Daniel Eaton M.D. on 05/10/2023 at 12:32
== END ==
PROVIDERS: Family Provider Orthopaedic Surgery Orthopaedic Surgery of the Spine; PCP Internal Medicine; Referring Provider Urology; Visit Provider Urology
DX: N20.0 Calculus of kidney (principal); K57.30 Diverticulosis of large intestine without perforation or abscess without bleeding; K76.0 Fatty (change of) liver, not elsewhere classified; Z96.0 Presence of urogenital implants; Z90.49 Acquired absence of other specified parts of digestive tract
CPT/HCPCS: 74176

== ENCOUNTER → 2023-05-23 14:53 | Outpatient (CLI) | payer MEDICARE, OTHER, SELFPAY ==
[2023-03-28 08:45] VITALS: BMI 45.5
== END ==
PROVIDERS: Family Provider Orthopaedic Surgery Orthopaedic Surgery of the Spine; PCP Internal Medicine; Referring Provider Urology; Visit Provider Urology
DX: N28.9 Disorder of kidney and ureter, unspecified (principal); R30.0 Dysuria; R31.9 Hematuria, unspecified
CPT/HCPCS: 87086

== ENCOUNTER → 2023-05-29 16:12 | Outpatient (CLI) | payer MEDICARE, OTHER, SELFPAY ==
[2023-03-28 08:45] VITALS: BMI 45.5
== END ==
PROVIDERS: Family Provider Orthopaedic Surgery Orthopaedic Surgery of the Spine; PCP Internal Medicine; Visit Provider Urology
DX: N30.00 Acute cystitis without hematuria (principal); N20.2 Calculus of kidney with calculus of ureter; Z87.448 Personal history of other diseases of urinary system; Z96.0 Presence of urogenital implants
CPT/HCPCS: 81002; 87086

== ENCOUNTER → 2023-06-05 17:04 | Outpatient (CLI) | payer MEDICARE, OTHER, SELFPAY ==
[2023-03-28 08:45] VITALS: BMI 45.5
--- NOTE | 2023-06-05 17:10 | DI.RAD.S_ITS ---
PROCEDURE: XR KUB INDICATIONS: Follow-up left-sided stone TECHNIQUE: One view of the abdomen acquired. COMPARISON: [facility], CT, CT ABDOMEN PELVIS WO CON, 05/10/2023, 9:19. [facility], CR, XR KUB, 04/30/2023, 13:47. [facility], CR, XR KUB, 04/10/2023, 13:16. FINDINGS: Surgical changes and devices: Hernia repair and surgical fusion of the lumbosacral spine.. Bowel: Bowel gas pattern is normal. Soft tissues: Faint 3.5 millimeter stone projects over the proximal left ureter. Left-sided nephroureteral stent in place. Bones: No suspicious bony lesions. IMPRESSION: Faint 3.5 millimeter stone projects over the left ureter, similar to recent CT. Left-sided nephroureteral stent in place. Dictated by: Sidney Encarnacion M.D. on 06/05/2023 at 19:54 Approved by: Sidney Encarnacion M.D. on 06/05/2023 at 19:56
== END ==
PROVIDERS: Family Provider Orthopaedic Surgery Orthopaedic Surgery of the Spine; PCP Internal Medicine; Referring Provider Urology; Visit Provider Urology
DX: N20.2 Calculus of kidney with calculus of ureter (principal); Z96.0 Presence of urogenital implants
CPT/HCPCS: 74018

== ENCOUNTER → 2023-06-17 15:30 | Outpatient (CLI) | payer MEDICARE, OTHER, SELFPAY ==
[2023-03-28 08:45] VITALS: BMI 45.5
--- NOTE | 2023-06-17 15:32 | DI.RAD.S_ITS ---
PROCEDURE: XR KUB INDICATIONS: kidney stones, ureteral stent TECHNIQUE: One view of the abdomen acquired. COMPARISON: [facility], CR, XR KUB, 06/05/2023, 17:15. FINDINGS: Surgical changes and devices: Prior hernia surgery and fusion of lower lumbar spine is again seen. Left-sided ureteral stent is again noted. Bowel: Bowel gas pattern is normal. Soft tissues: 6 x 7 mm faint radiodensity projecting over the region of proximal left ureteral stent is noted.. Visualized solid organ contours appear normal in size. Bones: No suspicious bony lesions. IMPRESSION: Very subtle hyperdensity projecting in the region of left proximal ureteral stent which may represent proximal ureteral stone as above. Left-sided ureteral stent in place. Dictated by: Daniel Eaton M.D. on 06/17/2023 at 17:02 Approved by: Daniel Eaton M.D. on 06/17/2023 at 17:05
== END ==
PROVIDERS: Family Provider Orthopaedic Surgery Orthopaedic Surgery of the Spine; PCP Internal Medicine; Referring Provider Urology; Visit Provider Urology
DX: N12 Tubulo-interstitial nephritis, not specified as acute or chronic (principal); Z96.0 Presence of urogenital implants; N20.2 Calculus of kidney with calculus of ureter
CPT/HCPCS: 74018

== ENCOUNTER → 2023-06-18 16:06 | Outpatient (CLI) | payer MEDICARE, OTHER, SELFPAY ==
[2023-03-28 08:45] VITALS: BMI 45.5
== END ==
PROVIDERS: Family Provider Orthopaedic Surgery Orthopaedic Surgery of the Spine; PCP Internal Medicine; Visit Provider Urology
DX: N12 Tubulo-interstitial nephritis, not specified as acute or chronic (principal); N30.00 Acute cystitis without hematuria; N20.2 Calculus of kidney with calculus of ureter; Z96.0 Presence of urogenital implants; Z87.448 Personal history of other diseases of urinary system
CPT/HCPCS: 81002; 87086

== ENCOUNTER → 2023-06-20 09:54 | Outpatient (CLI) | payer MEDICARE, OTHER, SELFPAY ==
[2023-03-28 08:45] VITALS: BMI 45.5
== END ==
PROVIDERS: Family Provider Orthopaedic Surgery Orthopaedic Surgery of the Spine; PCP Internal Medicine; Visit Provider Urology
DX: N39.0 Urinary tract infection, site not specified (principal); Z87.442 Personal history of urinary calculi; Z87.440 Personal history of urinary (tract) infections; Z96.0 Presence of urogenital implants
CPT/HCPCS: 52310; 81002; 87086

== ENCOUNTER → 2023-06-26 15:43 | Outpatient (CLI) | payer MEDICARE, OTHER, SELFPAY ==
[2023-03-28 08:45] VITALS: BMI 45.5
--- NOTE | 2023-06-26 15:45 | DI.RAD.S_ITS ---
PROCEDURE: XR KUB INDICATIONS: Follow-up kidney stones TECHNIQUE: One view of the abdomen acquired. COMPARISON: [facility], CT, CT ABDOMEN PELVIS WO CON, 05/10/2023, 9:19. [facility], CR, XR KUB, 06/17/2023, 15:34. FINDINGS: Surgical changes and devices: Interval removal of left ureterovesicular stent. Lower lumbar fusion is present. Bowel: Bowel gas pattern is normal. Soft tissues: No suspicious abdominal calcifications. No definitively identified calcifications overlying the renal or ureteral shadows. Visualized solid organ contours appear normal in size. Bones: No suspicious bony lesions. IMPRESSION: No visualized calcification. Dictated by: Caremn Jacobs M.D. on 06/26/2023 at 16:44 Approved by: Carmen Jacobs M.D. on 06/26/2023 at 16:46
== END ==
PROVIDERS: Family Provider Orthopaedic Surgery Orthopaedic Surgery of the Spine; PCP Internal Medicine; Referring Provider Urology; Visit Provider Urology
DX: N20.0 Calculus of kidney (principal)
CPT/HCPCS: 74018

== ENCOUNTER → 2023-06-28 15:23 | Outpatient (CLI) | payer MEDICARE, OTHER, SELFPAY ==
[2023-03-28 08:45] VITALS: BMI 45.5
== END ==
PROVIDERS: Family Provider Orthopaedic Surgery Orthopaedic Surgery of the Spine; PCP Internal Medicine; Visit Provider Urology
DX: N39.0 Urinary tract infection, site not specified (principal)
CPT/HCPCS: 87086

== ENCOUNTER → 2023-06-28 16:24 | Outpatient (CLI) | payer MEDICARE, OTHER, SELFPAY ==
[2023-03-28 08:45] VITALS: BMI 45.5
[2023-06-28 17:41] LABS: Calcium 9.1 mg/dL (8.4-10.2); Phosphorous 3.8 mg/dL (2.8-4.1); Uric Acid 5.3 mg/dL (2.5-6.2)
[2023-07-02 07:59] LABS: Calcium 8.9 mg/dL (8.7-10.3); Parathyroid Hormone, Intact 36 pg/mL (15-65)
== END ==
PROVIDERS: Family Provider Orthopaedic Surgery Orthopaedic Surgery of the Spine; PCP Internal Medicine; Referring Provider Urology; Visit Provider Urology
DX: N39.0 Urinary tract infection, site not specified (principal); N20.2 Calculus of kidney with calculus of ureter; N12 Tubulo-interstitial nephritis, not specified as acute or chronic; Z87.448 Personal history of other diseases of urinary system
CPT/HCPCS: 36415; 81002; 82310; 83970; 84100; 84550; 87086; 99213

== ENCOUNTER → 2023-12-17 15:39 | Outpatient (CLI) | payer MEDICARE, OTHER, SELFPAY ==
[2023-03-28 08:45] VITALS: BMI 45.5
== END ==
PROVIDERS: Family Provider Orthopaedic Surgery Orthopaedic Surgery of the Spine; PCP Internal Medicine; Visit Provider Urology
DX: N39.0 Urinary tract infection, site not specified (principal); N20.0 Calculus of kidney; R82.991 Hypocitraturia; R82.992 Hyperoxaluria; Z87.448 Personal history of other diseases of urinary system
CPT/HCPCS: 81002; 87077; 87086; 87147; 87186; 99213

== ENCOUNTER → 2024-03-13 16:09 | Outpatient (CLI) | payer MEDICARE, OTHER, SELFPAY ==
[2023-03-28 08:45] VITALS: BMI 45.5
--- NOTE | 2024-03-13 | DI.MRI.S_ITS ---
PROCEDURE: MR LUMBAR SPINE WO CON INDICATIONS: Spondylosis without myelopathy or radiculopathy, lumbar eladio TECHNIQUE: Noncontrast sagittal T1 spin echo and T2 fast echo, sagittal STIR, and T2 fast spin echo through the lumbar spine. In cases with scoliosis, additional coronal T2 fast spin echo may be performed. COMPARISON: [facility], , MR LUMBAR SPINE WO CON, 03/26/2018, 10:08. FINDINGS: Image quality: Diagnostic. Surgery: Posterior and interbody surgical fusion at L4-5 and L5-S1. Alignment and Curvature: Grade 1 anterolisthesis of L5 on S1. Grade 1 retrolisthesis of L4 on L5, L1 on L2. Slight leftward curvature centered at L4. Bone Marrow: Marrow is of normal overall signal. No acute vertebral body compression fractures. Mild anterior wedging of the L1 vertebral body. Spinal Cord: Conus medullaris terminates at the L1 level. Visualized cord demonstrates normal signal and size. Paraspinous Soft Tissues: No paravertebral masses. T12-L1: Broad-based disc bulge. L1-L2: Facet hypertrophy, broad-based disc bulge. Mild right neural foraminal narrowing. L2-L3: Mild facet hypertrophy, ligamentum flavum hypertrophy, broad-based disc bulge. Mild bilateral neural foraminal narrowing. L3-L4: Facet hypertrophy, ligamentum flavum hypertrophy, broad-based disc bulge. Ohee-wm-yavgzdtm spinal canal narrowing. Mild bilateral neural foraminal narrowing. L4-L5: Facet hypertrophy. Mzzd-pk-vkuqatgx right neural foraminal narrowing. L5-S1: Facet hypertrophy. Fptz-ue-ctvawtvw bilateral neural foraminal narrowing. IMPRESSION: Surgical fusion of L4 through S1, without hardware complication. Multilevel degenerative disc disease and facet arthrosis, with mild interval progression from prior. Of note, there is dtqo-rj-uxguapxb spinal canal narrowing at L3-4, and multilevel wxfk-zk-ioakgwgv neural foraminal narrowing. Dictated by: Sidney Encarnacion M.D. on 03/16/2024 at 9:27 Approved by: Sidney Encarnacion M.D. on 03/16/2024 at 9:45
== END ==
LOC: MRI 16:10
PROVIDERS: Family Provider Orthopaedic Surgery Orthopaedic Surgery of the Spine; PCP Internal Medicine; Referring Provider Physical Medicine & Rehabilitation; Visit Provider Physical Medicine & Rehabilitation
DX: M47.816 Spondylosis without myelopathy or radiculopathy, lumbar region (principal); M47.817 Spondylosis without myelopathy or radiculopathy, lumbosacral region; M51.36 Other intervertebral disc degeneration, lumbar region; M48.061 Spinal stenosis, lumbar region without neurogenic claudication; M48.07 Spinal stenosis, lumbosacral region; Z98.1 Arthrodesis status
CPT/HCPCS: 72148

== ENCOUNTER → 2024-05-24 10:35 | Outpatient (CLI) | payer MEDICARE, OTHER, SELFPAY ==
[2023-03-28 08:45] VITALS: BMI 45.5
--- NOTE | 2024-05-24 | DI.MRI.S_ITS ---
PROCEDURE: MR BRAIN (IAC) WWO CON INDICATIONS: SNHL TECHNIQUE: Noncontrast sagittal T1 spin echo, axial FLAIR, axial gradient echo, axial diffusion and ADC through the brain. Axial thin-slice 3D CISS, coronal TruFISP, axial T1 spin echo with fat saturation through the internal auditory canals. After the administration of contrast, thin slice axial and coronal T1 spin echo with fat saturation through the internal auditory canals, and axial and coronal and sagittal T1 spin echo with fat saturation through the brain. COMPARISON: None. FINDINGS: Image quality: This examination is limited by involuntary motion artifact. Images are repeated, with some improvement. Cerebellopontine angles: No cerebellopontine angle masses. Inner ear structures appear normally formed. No suspicious enhancement in the internal auditory canal or along the course of the 7th cranial nerve. CSF spaces: Ventricles are normal in size and shape. No extra-axial fluid collections. Basal cisterns are patent. Brain: No intracranial bleeds or mass effects. [place]-white matter interface is intact. No abnormal intracranial enhancement. Diffusion weighted images demonstrate no acute ischemic insults. Brainstem appears normal. Normal intravascular flow voids are present. Skull and face: Calvarial marrow signal is normal. Orbits appear normal. Sinuses: Sinuses and mastoids are clear. IMPRESSION: No significant abnormality is seen. Specifically, no masses or abnormal enhancement are seen within the cerebellopontine angle cisterns or within the internal auditory canals. Dictated by: Jose Garcia M.D. on 05/25/2024 at 16:29 Approved by: Jose Garcia M.D. on 05/25/2024 at 16:30
== END ==
LOC: MRI 10:36
PROVIDERS: Family Provider Orthopaedic Surgery Orthopaedic Surgery of the Spine; PCP Internal Medicine; Referring Provider Otolaryngology; Visit Provider Otolaryngology
DX: H90.42 Sensorineural hearing loss, unilateral, left ear, with unrestricted hearing on the contralateral side (principal)
CPT/HCPCS: 70553; A9579

== ENCOUNTER → 2024-07-30 11:47 | Outpatient (CLI) | payer MEDICARE, OTHER, SELFPAY ==
[2024-07-06 13:58] VITALS: BMI 45.5
--- NOTE | 2024-07-30 11:48 | DI.RAD.S_ITS ---
PROCEDURE: XR KUB INDICATIONS: Follow-up calcium oxalate stones TECHNIQUE: One view of the abdomen acquired. COMPARISON: None. FINDINGS: Surgical changes and devices: Interbody fusion hardware within the lower lumbar spine. Postsurgical changes from prior ventral hernia repair. Bowel: Bowel gas pattern is normal. Soft tissues: No suspicious abdominal calcifications. Visualized solid organ contours appear normal in size. Bones: No suspicious bony lesions. IMPRESSION: No abnormal abdominal or pelvic calcifications. Dictated by: Van Mares M.D. on 07/31/2024 at 9:17 Approved by: Van Mares M.D. on 07/31/2024 at 9:21
== END ==
PROVIDERS: Family Provider Orthopaedic Surgery Orthopaedic Surgery of the Spine; PCP Internal Medicine; Referring Provider Urology; Visit Provider Urology
DX: N20.0 Calculus of kidney (principal); Z87.442 Personal history of urinary calculi; Z98.1 Arthrodesis status
CPT/HCPCS: 74018

== ENCOUNTER 2024-12-19 18:54 | Emergency (ER) | payer MEDICARE, OTHER, SELFPAY ==
[2024-07-30 13:21] VITALS: BMI 45.5
[2024-12-19 19:00] VITALS: BP 199/95; PULSE 72; RESP 18; TEMP 36.8; O2SAT 98; BMI 46.8
--- NOTE | 2024-12-19 19:16 | PC.NURSE ---
Upon transfer to bed from wheelchair, pt also reports her bottom hurts from the fall.
--- NOTE | 2024-12-19 19:59 | ED_ITS ---
HPI - Fall General Chief Complaint: Fall Stated Complaint: Fall, hit head, +blood thinners Time Seen by Provider: 12/19/24 19:07 Source: patient Mode of arrival: Ambulatory History of Present Illness HPI Narrative: Patient is a 64-year-old female, hypertension hyperlipidemia GERD hypothyroidism CELSO depression anxiety presenting to day with ground level fall. She gets around by wheelchair daughter was pushing her hit a bump in the sidewalk fell backwards hit her head. No loss of consciousness she was not on any anti platelet or anticoagulation medication. No nausea or vomiting. Injury happened 4 hours ago in [place]. She has no neck pain numbness tingling or weakness she has not had any further symptoms. She does have significant hematoma posteriorly she has mild pain. Related Data Home Medications Medication Instructions Recorded Confirmed esomeprazole magnesium 40 mg 40 mg PO QAM ##0 07/05/12 07/30/24 capsule,delayed release (Nexium) furosemide 20 mg tablet 40 mg PO QAM ##0 07/05/12 07/30/24 albuterol sulfate 90 mcg/actuation 2 puff inhalation Q4-6H PRN sob 10/09/18 07/30/24 aerosol inhaler (ProAir HFA) cyclobenzaprine 10 mg tablet 10 mg PO TID PRN Muscle Spasm 10/09/18 07/30/24 fluticasone propionate 50 2 spray intranasal DAILY 10/09/18 07/30/24 mcg/actuation nasal spray,suspension (Flonase Allergy Relief) isosorbide mononitrate 60 mg 60 mg PO QAM 10/09/18 07/30/24 tablet,extended release 24 hr levothyroxine 125 mcg tablet 175 mcg PO DAILY 10/09/18 07/30/24 (Synthroid) omeprazole 20 mg capsule,delayed 20 mg PO DAILY 10/09/18 07/30/24 release simvastatin 20 mg tablet 20 mg PO QAM 10/09/18 07/30/24 citalopram 20 mg tablet 20 mg PO QAM 03/19/23 07/30/24 colchicine 0.6 mg tablet (Colcrys) 0.6 mg PO QAM 03/19/23 07/30/24 meloxicam 7.5 mg tablet 7.5 mg PO QAM 03/19/23 07/30/24 oxybutynin chloride 5 mg tablet 5 mg PO BID 03/20/23 07/30/24 fluticasone 250 mcg-salmeterol 50 1 inh inhalation BID 04/16/23 07/30/24 mcg/dose blistr powdr for inhalation (Advair Diskus) pregabalin 75 mg capsule (Lyrica) 75 mg PO BID 04/16/23 07/30/24 Previous Rx's Medication Instructions Recorded acetaminophen 325 mg tablet 650 mg (2 x 325 mg) PO Q6HR PRN 10/14/18 Pain, Mild (1-3) #0 tabs sulfamethoxazole 800 1 tab PO BID #20 tabs 12/26/23 mg-trimethoprim 160 mg tablet (Bactrim DS) Allergies Allergy/AdvReac Type Severity Reaction Status Date / Time erythromycin base Allergy Severe Hives, Verified 06/28/23 15:31 [ERYTHROMYCIN BASE] syncope Patient History Medical History Hypercalciuria Hyperoxaluria Hypocitraturia Calcium oxalate stones History of pyelonephritis Hx of thyroid disease Hx of rheumatoid arthritis Hx of osteoarthritis History of kidney stones Left ureteral calculus Urinary tract infection Severe anxiety Easy bruisability Arthritis Chronic neck and back pain Difficulty swallowing GERD (gastroesophageal reflux disease) Generalized edema Hyperlipidemia HTN (hypertension) Shortness of breath Pinched nerve Numbness and tingling Sleep apnea Depression Elbow fracture, right Surgical History History of lumbar spinal fusion (01/19/19) Hx of cystoscopy (03/19/23) Hx of breast biopsy History of lumbar spinal fusion (10/13/18) Hx of partial thyroidectomy History of bilateral tubal ligation Hx of hernia repair Hx of cholecystectomy History of hysterectomy S/P foot surgery, right History of arthroplasty of right knee Hx of tonsillectomy Family History Brother Cancer Diabetes mellitus Hearing impairment Kidney stones Social History marital status: number of children: 4 household members: spouse, family and children occupational status: other Smoking Status: Never smoker alcohol intake: former caffeine: Yes Smoking Status: Never smoker alcohol intake frequency: holidays/special occasions only Exam Initial Vital Signs Initial Vital Signs: Vital Signs Temperature 98.3 F 12/19/24 19:00 Pulse Rate 72 12/19/24 19:00 Respiratory Rate 18 12/19/24 19:00 Blood Pressure 199/95 H 12/19/24 19:00 Pulse Oximetry 98 12/19/24 19:00 Oxygen Delivery Method Room Air 12/19/24 19:00 GENERAL: Alert pleasant 64-year-old female HEENT: Head posterior hematoma noted no significant fluctuation, no laceration,EOMI, pupils reactive, face symmetric, moist mucous membranes NECK: No vertebral tenderness no step-off full flexion extension and rotation CARDIOVASCULAR: Regular rate and rhythm without murmurs, rubs or gallops. RESPIRATORY: Breath sounds equal bilaterally, no wheezes rales or rhonchi. ABDOMEN: Soft, nontender. Normoactive bowel sounds all 4 quadrants. No guarding or rebound. EXTREMITIES: Normal range of motion, no clubbing or edema. Neurovascularly intact NEUROLOGICAL: Alert and oriented x4. Normal speech adult nurse practitioner strength equal SKIN: Warm, dry, no laceration, no petechiae, no rashes or lesions. Scores [place] CT Head Rule Age <16 years old: No Patient on blood thinners: No Seizure after injury: No Exclusion: Patient NOT Excluded, Proceed to next steps GCS < 15 at 2 hr post trauma: No Suspected open or depressed skull fracture: No Any sign of basilar skull fracture (hemotympanum, raccoon eyes, Pendleton's sign, CSF duyen-/rhinorrhea): No Two or more episodes of vomiting: No Age greater or equal to 65 years: Yes Retrograde amnesia to the event greater or equal to 30 min: No Dangerous Mechanism (pedestrian vs. mv, occupant ejected from mv, fall from >3 ft or > 5 stairs): No Recommendation: Consider CT. The [place] Head CT Rule cannot rule out need for Imaging. Course Orders Ordered: Discontinued Medications Acetaminophen (Acetaminophen 325 Mg Tablet) 975 mg PO NOW ONE Stop: 12/19/24 20:09 Last Admin: 12/19/24 20:19 Dose: 975 mg Documented By: Vital Signs Vital signs: Vital Signs - 8 hr 12/19/24 19:00 12/19/24 20:24 Temperature 98.3 F 97.8 F Pulse Rate 72 75 Respiratory Rate 18 20 Blood Pressure 199/95 H 177/79 H Pulse Oximetry 98 97 Oxygen Delivery Method Room Air Room Air MDM - Fall MDM Narrative Medical decision making narrative: Patient is 64-year-old female with head injury fall from wheelchair. Injury happened 4 hours prior she has not had any vomiting she has a mild headache no weakness neck is supple. She was not on any antiplatelet or anticoagulation medication. We discussed imaging however at this time initial injury happened 4 hours ago she has been monitored low suspicion for skull fracture she does have hematoma but it there is no significant fluctuation there mild abrasion no lacerations. Concussion protocol and strict return precautions discussed with both patient and Discharge Plan Departure Patient Disposition: Home Clinical Impression: Closed head injury, Concussion without loss of consciousness Instructions: Concussion Activity Restrictions/Additional Instructions: *You have been diagnosed with closed head injury *What to do: At this time please get plenty of rest. Expect to have mild headache. You may noticed worsening headache with light or screen time or concentration if that occurs please stop what you are doing. You may also experience some mild nausea as well *Continue to take medications as directed Tylenol 1000 mg every 6 hours for uhlh-gr-fdmwgfte pain *Follow up with your primary care provider in 2-3 days or call [phone] *Return to ER if you should have worsening headache persistent vomiting weakness or any new, worsening or concerning symptoms Prescriptions: No Action furosemide 20 MG tablet 40 mg PO QAM Qty: 0 esomeprazole magnesium [Nexium] 40 MG capsule,delayed release(DR/EC) 40 mg PO QAM Qty: 0 sulfamethoxazole-trimethoprim [Bactrim DS] 800-160 mg tablet 1 tab PO BID Qty: 20 0RF meloxicam 7.5 mg tablet 7.5 mg PO QAM citalopram 20 mg tablet 20 mg PO QAM colchicine [Colcrys] 0.6 mg tablet 0.6 mg PO QAM oxybutynin chloride 5 mg tablet 5 mg PO BID Patient Comments: Take 1 tablet by mouth twice a day fluticasone propion-salmeterol [Advair Diskus] 250-50 mcg/dose blister with device 1 inh INHALATION BID pregabalin [Lyrica] 75 mg capsule 75 mg PO BID Patient Comments: Take 1 by mouth twice daily for nerve pain. May increase to 2 twice daily after 1 week if neeed levothyroxine [Synthroid] 125 mcg Tablet 175 mcg PO DAILY Patient Comments: Pt uses Synthyroid, not generic cyclobenzaprine 10 mg Tablet 10 mg PO TID PRN (Reason: Muscle Spasm) isosorbide mononitrate 60 mg Tablet Extended Release 24 Hr 60 mg PO QAM simvastatin 20 mg Tablet 20 mg PO QAM omeprazole 20 mg Capsule,Delayed Release(Dr/Ec) 20 mg PO DAILY albuterol sulfate [ProAir HFA] 90 mcg/actuation Hfa Aerosol Inhaler 2 puff INHALATION Q4-6H PRN (Reason: sob) fluticasone propionate [Flonase Allergy Relief] 50 mcg/actuation [place],Suspension 2 spray INTRANASAL DAILY acetaminophen 325 mg Tablet 650 mg PO Q6HR PRN (Reason: Pain, Mild (1-3)) Qty: 0 0RF Referrals: Catina Barriga MD [Primary Care Provider] - Stand Alone Forms: Patient Portal/API/Survey
[2024-12-19] MEDS: ACETAMINOPHEN 325 MG TABLET 975 MG PO (20:19)
[2024-12-19 20:24] VITALS: BP 177/79; PULSE 75; RESP 20; TEMP 36.6; O2SAT 97
== END 2024-12-19 20:25 | disposition home or self-care (01) ==
PROVIDERS: Emergency Provider Emergency Medicine; Family Provider Orthopaedic Surgery Orthopaedic Surgery of the Spine; PCP Internal Medicine
DX: S06.0X0A Concussion without loss of consciousness, initial encounter (principal); W18.30XA Fall on same level, unspecified, initial encounter; Z79.01 Long term (current) use of anticoagulants
CPT/HCPCS: 99283

== ENCOUNTER → 2025-02-05 12:54 | Outpatient (CLI) | payer MEDICARE, OTHER, SELFPAY ==
[2024-07-30 13:21] VITALS: BMI 45.5
--- NOTE | 2025-02-05 12:55 | DI.RAD.S_ITS ---
PROCEDURE: XR KUB INDICATIONS: History of kidney stones rule out recurrence TECHNIQUE: One view of the abdomen acquired. COMPARISON: [facility], CR, XR KUB, 07/30/2024, 10:54. [facility], CR, XR KUB, 06/26/2023, 15:46. FINDINGS: Surgical changes and devices: Posterior spinal fixation hardware at L4 through S1. Herniorrhaphy clips are seen projecting over the abdomen. Bowel: Bowel gas pattern is normal. Soft tissues: No suspicious abdominal calcifications. Visualized solid organ contours appear normal in size. Bones: No suspicious bony lesions. Multilevel degenerative changes in the spine. IMPRESSION: No definite renal calcification is seen radiographically. Approved by: Danny Williamson M.D. on 02/05/2025 at 13:41
== END ==
PROVIDERS: Family Provider Orthopaedic Surgery Orthopaedic Surgery of the Spine; PCP Internal Medicine; Referring Provider Urology; Visit Provider Urology
DX: Z87.442 Personal history of urinary calculi (principal); Z09 Encounter for follow-up examination after completed treatment for conditions other than malignant neoplasm
CPT/HCPCS: 74018; 81002; 99213

== ENCOUNTER 2025-03-31 18:23 | Emergency (ER) | payer MEDICARE, OTHER, SELFPAY ==
[2024-07-30 13:21] VITALS: BMI 45.5
[2025-03-31] VITALS (15 sets, daily range): BP systolic 125–155; BP diastolic 60–103; PULSE 72–88; RESP 12–24; TEMP 36.8; O2SAT 93–99; BMI 54.6
--- NOTE | 2025-03-31 19:06 | ED_ITS ---
HPI - General Adult General Chief complaint: Shortness of Breath/Dyspnea Stated complaint: L Leg/ R Arm Pain Time Seen by Provider: 03/31/25 18:51 History of Present Illness HPI narrative: 65-year-old female with history of morbid obesity, with no history of known blood clots, has right knee replacement 7 years ago, no procedures on the left leg, over the last few days has had increasing swelling to the right upper extremity and left lower extremity. Also for the last few weeks has had some shortness of breath. No chest pain. No history of known blood clots to legs or lungs. No local trauma to the affected extremities. No new activities. Patient states that her primary care provider felt that steroids might be useful if no clot issues identified in extremities or in lungs, to explain her shortness of breath symptoms. Related Data Home Medications ?Medication ?Instructions ?Recorded ?Confirmed esomeprazole magnesium 40 mg 40 mg PO QAM ##0 07/05/12 02/05/25 capsule,delayed release (Nexium) furosemide 20 mg tablet 40 mg PO QAM ##0 07/05/12 albuterol sulfate 90 mcg/actuation 2 puff inhalation Q 4-6H PRN sob 10/09/18 02/05/25 aerosol inhaler (ProAir HFA) cyclobenzaprine 10 mg tablet 10 mg PO TID PRN Muscle S pasm 10/09/18 02/05/25 fluticasone propionate 50 2 spray intranasal DAILY 12/2302/05/25 mcg/actuation nasal spray,suspension (Flonase Allergy Relief) isosorbide mononitrate 60 mg 60 mg PO QAM 10/09/1812/01 tablet,extended release 24 hr levothyroxine 125 mcg tablet 175 mcg PO DAILY 10/09/18 02/05/25 (Synthroid) omeprazole 20 mg capsule,delayed 20 mg PO DAILY 02/05/25 release citalopram 20 mg tablet 20 mg PO QAM 03/19/23 colchicine 0.6 mg tablet (Colcrys) 0.6 mg PO QAM 03/1902/05/25 meloxicam 7.5 mg tablet 7.5 mg PO QAM 03/19/2302/05 oxybutynin chloride 5 mg tablet 5 mg PO BID 03/20/23 0 02/05/25 fluticasone 250 mcg-salmeterol 50 1 inh inhalation BID 04/16/23 02/05/25 mcg/dose blistr powdr for inhalation (Advair Diskus) pregabalin 75 mg capsule (Lyrica) 75 mg PO BID 3 02/05/25 Previous Rx's ?Medication ?Instructions ?Recorded acetaminophen 325 mg tablet 650 mg (2 x 325 mg) PO Q6H R PRN 10/14/18 Pain, Mild (1-3) #0 tabs prednisone 20 mg tablet 40 mg (2 x 20 mg) PO DAILY 5 days 03/31/25 #10 tabs Allergies Allergy/AdvReac Type Severity Reaction Status Date / Time erythromycin base Allergy Severe Hives, Verified 06/28/23 15:31 (ERYTHROMYCIN BASE) syncope Patient History Medical History (Updated 03/31/25 @ 23:03 by Ivan Siddiqui MD) Hypercalciuria Hyperoxaluria Hypocitraturia Calcium oxalate stones History of pyelonephritis Hx of thyroid disease Hx of rheumatoid arthritis Hx of osteoarthritis History of kidney stones Left ureteral calculus Urinary tract infection Severe anxiety Easy bruisability Arthritis Chronic neck and back pain Difficulty swallowing GERD (gastroesophageal reflux disease) Generalized edema Hyperlipidemia HTN (hypertension) Shortness of breath Pinched nerve Numbness and tingling Sleep apnea Depression Elbow fracture, right Surgical History History of lumbar spinal fusion (01/19/19) Hx of cystoscopy (03/19/23) Hx of breast biopsy History of lumbar spinal fusion (10/13/18) Hx of partial thyroidectomy History of bilateral tubal ligation Hx of hernia repair Hx of cholecystectomy History of hysterectomy S/P foot surgery, right History of arthroplasty of right knee Hx of tonsillectomy Family History Brother Cancer Diabetes mellitus Hearing impairment Kidney stones Social History marital status: number of children: 4 household members: spouse, family and children occupational status: other alcohol intake: former caffeine: Yes alcohol intake frequency: holidays/special occasions only Exam Narrative Exam Narrative: GENERAL: Well-developed patient, in mild distress. HEAD: Atraumatic. Normocephalic. EYES: Pupils equal round and reactive. Extraocular motions intact. No scleral icterus. No injection or drainage. ENT: Nose without bleeding, purulent drainage. Throat without erythema, tonsillar hypertrophy or exudate. Airway patent. NECK: Trachea midline. Non tender CARDIOVASCULAR: Regular rate and rhythm without murmurs, gallops, or rubs. RESPIRATORY: Clear to auscultation. Breath sounds equal bilaterally. No wheezes, rales, or rhonchi. GASTROINTESTINAL: Abdomen soft, non-tender, nondistended. EXTREMITIES: Right upper extremity edema compared to left lower extremity, right lower extremity has well healed anterior knee scar without significant swelling, left lower extremity seems somewhat increased calf and thigh compared to contralateral side. BACK: Nontender without deformity or crepitance. No flank tenderness. NEURO: AOx3. Motor functions grossly nonfocal SKIN: No rash or erythema of visible areas Initial Vital Signs Initial Vital Signs: Vital Signs Temperature 98.2 F 03/31/25 18:29 Pulse Rate 81 03/31/25 18:29 Respiratory Rate 16 03/31/25 18:29 Blood Pressure 144/69 H 03/31/25 18:29 Pulse Oximetry 96 03/31/25 18:29 Oxygen Delivery Method Room Air 03/31/25 18:29 Course Orders Ordered: ED Orders 03/31/25 19:00 Complete Blood Count AUTO DIFF Stat Comprehensive Metabolic Panel Stat Lipase Stat Troponin & CK Cardiac Panel Stat 03/31/25 19:10 US periph venous low extrem lt Stat US periph venous up extrem rt Stat XR chest 1V Stat EKG-12 Lead Stat 03/31/25 20:15 CT angio chest PE protocol Stat Discontinued Medications Albuterol/Ipratropium (Albuterol/Ipratropium 3 Ml Ampul) 3 ml INH NOW ONE Stop: 03/31/25 21:50 Last Admin: 03/31/25 22:09 Dose: 3 ml Documented By: Methylprednisolone (Methylprednisolone 125 Mg/2 Ml Vial) 125 mg IV NOW ONE Stop: 03/31/25 21:50 Last Admin: 03/31/25 22:09 Dose: 125 mg Documented By: DORITA Vital Signs Vital signs: Vital Signs - 8 hr 03/31/25 20:00 03/31/25 20:01 03/31/25 20:01 Pulse Rate 86 81 Respiratory Rate Blood Pressure 145/64 H Pulse Oximetry 94 94 Oxygen Delivery Method 03/31/25 20:30 03/31/25 20:30 03/31/25 21:13 Pulse Rate 79 88 Respiratory Rate 21 Blood Pressure 125/60 Pulse Oximetry 96 96 Oxygen Delivery Method Room Air 03/31/25 21:15 03/31/25 21:15 03/31/25 21:30 Pulse Rate 83 78 Respiratory Rate 24 19 Blood Pressure 140/96 H Pulse Oximetry 95 94 Oxygen Delivery Method 03/31/25 21:30 03/31/25 22:00 03/31/25 22:00 Pulse Rate 77 Respiratory Rate 17 Blood Pressure 142/67 H 142/103 H Pulse Oximetry 93 Oxygen Delivery Method 03/31/25 22:11 03/31/25 22:30 03/31/25 22:30 Pulse Rate 72 74 Respiratory Rate 15 12 Blood Pressure 149/65 H Pulse Oximetry 99 95 Oxygen Delivery Method 03/31/25 23:00 03/31/25 23:00 Pulse Rate 74 Respiratory Rate Blood Pressure 155/72 H Pulse Oximetry 95 Oxygen Delivery Method Room Air Medical Decision Making Lab Data Lab results reviewed: Yes I reviewed the patient's lab results. Lab results narrative: White blood cell count 9400, hemoglobin 13.7, platelets 215,000. Glucose 116. BUN creatinine unremarkable. Serum CO2 26 normal. Electrolytes unremarkable. Slight elevations transaminases and alkaline phosphatase, normal T bili. Lipase 65 normal. 03/31/25 19:00 03/31/25 19:00 Labs: Lab Results 03/31/25 Range/Units 19:00 WBC 9.4 (4.5-11.0) X10^3/uL RBC 4.63 (4.0-5.2) X10^6/uL Hgb 13.7 (12.0-16.0) g/dL Hct 40.9 (36-46) % MCV 88.3 (80-100) fL MCH 29.7 (26-34) PG MCHC 33.6 (30-36) % RDW 15.5 H (11.6-14.8) % Plt Count 215 (150-400) X10^3/uL Neut % (Auto) 59.0 (50-75) % Lymph % (Auto) 30.3 (25-40) % [place] % (Auto) 6.8 (3-14) % Eos % (Auto) 3.0 (2-4) % Baso % (Auto) 0.9 (0-2) % Neut # (Auto) 5600 (7552-5481) /uL Lymph # (Auto) 2900 (9024-3882) /uL [place] # (Auto) 600 (0-900) /uL Eos # (Auto) 300 (0-450) /uL Baso # (Auto) 100 (0-100) /uL Sodium 138 (137-145) mmol/L Potassium 4.2 (3.4-5.1) mmol/L Chloride 105 (98-107) mmol/L Carbon Dioxide 26 (22-32) mmol/L BUN 25 H (7-17) mg/dL Creatinine 0.93 (0.52-1.04) mg/dL Estimated GFR > 60 (>60) mL/min BUN/Creatinine Ratio 26.9 H (6-22) Glucose 116 H (70-99) mg/dL Calcium 9.3 (8.4-10.2) mg/dL Total Bilirubin 0.4 (0.2-1.3) mg/dL AST 45 H (14-36) IU/L ALT 63 H (<35) IU/L Alkaline Phosphatase 138 H (38-126) U/L Total Creatine Kinase 87 (30-135) U/L Troponin I < 0.012 (0.01-0.034) ng/mL Total Protein 7.6 (6.3-8.2) g/dL Albumin 4.4 (3.5-5.0) g/dL Globulin 3.2 (1.7-4.1) g/dL Albumin/Globulin Ratio 1.4 (1.0-2.8) Lipase 65 (23-300) U/L Imaging Data Left leg venous Doppler ultrasound: Radiologist's Impression: [address] [address] Ultrasound Report Signed Patient: Kathy Maguire MR#: [id number] : 1960 Acct:[id number] Age/Sex: 65 / F Date of Service: 03/31/25 Loc: ED Accession Number: [id number] Procedure: US periph venous low extrem lt Ordering Provider: Ivan Siddiqui MD PROCEDURE: US PERIPH VENOUS LOW EXTREM LT INDICATIONS: Left leg swelling TECHNIQUE: Real-time imaging, as well as color and pulse Doppler interrogation, were performed of the lower extremity deep veins from the inguinal ligament to the popliteal fossa, with documentation of the visualized calf veins. COMPARISON: None. FINDINGS: The common femoral, femoral, popliteal, and the visualized calf veins are normally compressible, and free of intraluminal thrombus. Color and pulse Doppler demonstrate normal phasic intraluminal flow. There is normal augmentation response to distal compression maneuver. IMPRESSION: No deep venous thrombosis. Dictated by: Carmen Jacobs M.D. on 03/31/2025 at 20:49 Approved by: Carmen Jacobs M.D. on 03/31/2025 at 20:49 Right arm venous Doppler ultrasound: Radiologist's Impression: [address] [address] Ultrasound Report Signed Patient: Kathy Maguire MR#: [id number] : 1960 Acct:[id number] Age/Sex: 65 / F Date of Service: 03/31/25 Loc: ED Accession Number: [id number] Procedure: [facility] venous up extrem rt Ordering Provider: Ivan Siddiqui MD PROCEDURE: [facility] VENOUS UP EXTREM RT INDICATIONS: Right arm swelling TECHNIQUE: Real-time imaging, as well as color and pulse Doppler interrogation, was performed of the upper extremity deep veins from the inferior neck to the antecubital fossa. COMPARISON: None. FINDINGS: The internal jugular vein, visualized portions of the subclavian vein, axillary, and brachial veins are free of intraluminal thrombus. Where physically possible, the veins are normally compressible. Color and pulse Doppler demonstrate normal intraluminal flow, with expected phasicity and pulsatility. Additional scanning of the cephalic and basilic veins of the superficial system demonstrates normal compressibility, without thrombus. IMPRESSION: No deep venous thrombosis. Dictated by: Carmen Jacobs M.D. on 03/31/2025 at 20:48 Approved by: Carmen Jacobs M.D. on 03/31/2025 at 20:49 CTA chest PE protocol: Radiologist's Impression: [address] [address] [address] Scan Report Signed Patient: Kathy Maguire MR#: [id number] : 1960 Acct:[id number] Age/Sex: 65 / F Date of Service: 03/31/25 Loc: ED Accession Number: [id number] Procedure: CT angio chest PE protocol Ordering Provider: Ivan Siddiqui MD PROCEDURE: CT ANGIO CHEST PE PROTOCOL INDICATIONS: dyspnea, eval for PE TECHNIQUE: After the administration of intravenous contrast, 2 mm thick sections acquired from the pulmonary apices to the posterior costophrenic angles. 3-dimensional maximum intensity projection (MIP) coronal and sagittal reformats were then acquired through the thorax. For radiation dose reduction, the following was used: automated exposure control, adjustment of mA and/or kV according to patient size. COMPARISON: [facility], , XR CHEST 1V, 03/31/2025, 19:07. FINDINGS: Image quality: Diagnostic. Pulmonary arteries: Pulmonary arteries are normal in size, and demonstrate no intraluminal filling defects to suggest central pulmonary embolism. Lower Neck: No enlarged lymph nodes. Thyroid: No thyroid nodules which require sonographic follow up, per consensus guidelines. Axillae: No enlarged lymph nodes. Chest Wall: Unremarkable. Bones: Unremarkable. Lungs and Pleura: No pneumothorax or pleural effusions. No consolidation or suspicious nodules. Heart: Heart size is normal. No pericardial effusion. Thoracic Vessels: No aortic aneurysm. Mediastinum and Arleen: No enlarged lymph nodes. Esophagus: No wall thickening. Mild hiatal hernia. Upper Abdomen: Visualized upper abdomen solid organs and bowel loops appear normal. IMPRESSION: No pulmonary embolus. No acute cardiopulmonary process. Dictated by: Carmen Jacobs M.D. on 03/31/2025 at 21:27 Approved by: Carmen Jacobs M.D. on 03/31/2025 at 21:28 Chest x-ray: Radiologist's Impression: [address] [address] XRay Report Signed Patient: Kathy Maguire MR#: [id number] : 1960 Acct:[id number] Age/Sex: 65 / F Date of Service: 03/31/25 Loc: ED Accession Number: [id number] Procedure: XR chest 1V Ordering Provider: Ivan Siddiqui MD PROCEDURE: XR CHEST 1V INDICATIONS: chest pain TECHNIQUE: One view of the chest was acquired. COMPARISON: None. FINDINGS: Surgical changes and devices: None. Lungs and pleura: Lungs are clear. No pleural effusions or pneumothorax. Mediastinum: Mediastinal contours appear normal. Heart size is normal. Bones and chest wall: No suspicious bony lesions. Overlying soft tissues appear unremarkable. IMPRESSION: No acute cardiopulmonary abnormality is seen. Dictated by: Mark Pena M.D. on 03/31/2025 at 19:33 Approved by: Mark Pena M.D. on 03/31/2025 at 19:33 ECG Data Attestation: I personally reviewed and interpreted this ECG as follows: Interpretation: Normal sinus rhythm with rate of 74, no obvious ST segment elevation or depression changes. TX 168, QRS 76, QTC 450. MDM Narrative Medical decision making narrative: 65-year-old female with obesity has ongoing shortness of breath, more recent right upper extremity swelling without trauma, appears more swollen compared to left upper extremity, also has left lower extremity edema compared to the right. Ultrasound venous Doppler studies of the affected right upper extremity and left lower extremity. Labs pending. If GFR favorable consider CTA study. Labs, chest x-ray, EKG pending. EKG without obvious ischemic changes. Troponin negative. Chest x-ray no acute changes. See radiology report. Right upper quadrant venous ultrasound, no DVT. See radiology report. Left lower extremity venous Doppler ultrasound, no DVT. See radiology report. CT angiogram chest, no PE, no acute cardiopulmonary process identified. See radiology report. Patient given Solu-Medrol and breathing treatment, felt improved. Unclear etiology of right upper extremity and left lower extremity edema symptoms. No cellulitis clinically suspected. PCP apparently was considering use of steroid to help with patient's breathing, has home albuterol inhaler and seemed to feel better with breathing treatment here. Solu-Medrol given, will send prescription for prednisone 5 day pulse pack to her pharmacy. Advised further follow up with PCP later this week. Return precautions discussed. Discharged home with family. Discharge Plan Departure Patient Disposition: Home Clinical Impression: Arm swelling, Leg swelling, Shortness of breath Activity Restrictions/Additional Instructions: Swelling of right upper extremity and left lower extremity of unclear cause, with shortness of breath. Use of inhaler. Ultrasound venous Doppler studies of right upper extremity and left lower extremity negative for deep vein thrombosis or any acute abnormalities per radiology reports. CT angiogram of the chest showed no blood clots to the lungs, nor any acute chest process. Your primary care provider was reportedly wondering about use of steroids for your shortness of breath, IV Solu-Medrol steroid was given. Breathing treatment given. You felt some improvement. Unclear cause of the swelling symptoms unilaterally on opposite sides. No evidence for clot at this time. You have inhaler to use at home. Trial of prednisone steroid to take further to see if this helps your shortness of breath. Recheck symptoms with your regular doctor later this week. Return to this/nearest emergency department for any change worsening symptoms or any concerns prior. Prescriptions: New prednisone 20 mg tablet 40 mg PO DAILY 5 Days Qty: 10 0RF No Action furosemide 20 MG tablet 40 mg PO QAM Qty: 0 esomeprazole magnesium [Nexium] 40 MG capsule,delayed release(DR/EC) 40 mg PO QAM Qty: 0 meloxicam 7.5 mg tablet 7.5 mg PO QAM citalopram 20 mg tablet 20 mg PO QAM colchicine [Colcrys] 0.6 mg tablet 0.6 mg PO QAM oxybutynin chloride 5 mg tablet 5 mg PO BID Patient Comments: Take 1 tablet by mouth twice a day fluticasone propion-salmeterol [Advair Diskus] 250-50 mcg/dose blister with device 1 inh INHALATION BID pregabalin [Lyrica] 75 mg capsule 75 mg PO BID Patient Comments: Take 1 by mouth twice daily for nerve pain. May increase to 2 twice daily after 1 week if neeed levothyroxine [Synthroid] 125 mcg Tablet 175 mcg PO DAILY Patient Comments: Pt uses Synthyroid, not generic cyclobenzaprine 10 mg Tablet 10 mg PO TID PRN (Reason: Muscle Spasm) isosorbide mononitrate 60 mg Tablet Extended Release 24 Hr 60 mg PO QAM omeprazole 20 mg Capsule,Delayed Release(Dr/Ec) 20 mg PO DAILY albuterol sulfate [ProAir HFA] 90 mcg/actuation Hfa Aerosol Inhaler 2 puff INHALATION Q4-6H PRN (Reason: sob) fluticasone propionate [Flonase Allergy Relief] 50 mcg/actuation [place],Suspension 2 spray INTRANASAL DAILY acetaminophen 325 mg Tablet 650 mg PO Q6HR PRN (Reason: Pain, Mild (1-3)) Qty: 0 0RF Referrals: Catina Barriga MD [Primary Care Provider, Internal Medicine] Stand Alone Forms: Patient Portal/API
--- NOTE | 2025-03-31 19:10 | DI.RAD.S_ITS ---
PROCEDURE: XR CHEST 1V INDICATIONS: chest pain TECHNIQUE: One view of the chest was acquired. COMPARISON: None. FINDINGS: Surgical changes and devices: None. Lungs and pleura: Lungs are clear. No pleural effusions or pneumothorax. Mediastinum: Mediastinal contours appear normal. Heart size is normal. Bones and chest wall: No suspicious bony lesions. Overlying soft tissues appear unremarkable. IMPRESSION: No acute cardiopulmonary abnormality is seen. Dictated by: Mark Pena M.D. on 03/31/2025 at 19:33 Approved by: Mark Pena M.D. on 03/31/2025 at 19:33
--- NOTE | 2025-03-31 19:10 | EKG_ITS ---
[address] [address] Test Date: 2025-03-31 Pat Name: Kathy Maguire Department: [facility] Room: Gender: Female [employer]: MERA : 1960 Requested By: Order Number: [id number] Reading MD: Van Nixon Measurements Intervals [place] Rate: 74 P: 57 LA: 168 QRS: 15 QRSD: 76 T: 27 QT: 406 QTc: 450 Interpretive Statements Normal sinus rhythm Low voltage QRS Cannot rule out Anterior infarct , age undetermined Electronically Signed On 04-01-2025 7:27:25 PDT by Van Nixon
--- NOTE | 2025-03-31 19:10 | DI.US.S_ITS ---
PROCEDURE: US PERIPH VENOUS LOW EXTREM LT INDICATIONS: Left leg swelling TECHNIQUE: Real-time imaging, as well as color and pulse Doppler interrogation, were performed of the lower extremity deep veins from the inguinal ligament to the popliteal fossa, with documentation of the visualized calf veins. COMPARISON: None. FINDINGS: The common femoral, femoral, popliteal, and the visualized calf veins are normally compressible, and free of intraluminal thrombus. Color and pulse Doppler demonstrate normal phasic intraluminal flow. There is normal augmentation response to distal compression maneuver. IMPRESSION: No deep venous thrombosis. Dictated by: Carmen Jacobs M.D. on 03/31/2025 at 20:49 Approved by: Carmen Jacbos M.D. on 03/31/2025 at 20:49
--- NOTE | 2025-03-31 19:10 | DI.US.S_ITS ---
PROCEDURE: US PERIPH VENOUS UP EXTREM RT INDICATIONS: Right arm swelling TECHNIQUE: Real-time imaging, as well as color and pulse Doppler interrogation, was performed of the upper extremity deep veins from the inferior neck to the antecubital fossa. COMPARISON: None. FINDINGS: The internal jugular vein, visualized portions of the subclavian vein, axillary, and brachial veins are free of intraluminal thrombus. Where physically possible, the veins are normally compressible. Color and pulse Doppler demonstrate normal intraluminal flow, with expected phasicity and pulsatility. Additional scanning of the cephalic and basilic veins of the superficial system demonstrates normal compressibility, without thrombus. IMPRESSION: No deep venous thrombosis. Dictated by: Carmen Jacobs M.D. on 03/31/2025 at 20:48 Approved by: Carmen Jacobs M.D. on 03/31/2025 at 20:49
[2025-03-31 19:15] LABS: Add Manual Diff / Slide Review NO; Basophils Absolute Auto 100 /uL (0-100); Basophils Percent Auto 0.9 % (0-2); Eosinophils Absolute Auto 300 /uL (0-450); Hematocrit 40.9 % (36-46); Hemoglobin 13.7 g/dL (12.0-16.0); Lymphocytes Absolute Auto 2900 /uL (1100-4500); Lymphocytes Percent Auto 30.3 % (25-40); Mean Corpuscular HGB Conc 33.6 % (30-36); Mean Corpuscular Hemoglobin 29.7 PG (26-34); Mean Corpuscular Volume 88.3 fL (80-100); Monocytes Absolute Auto 600 /uL (0-900); Monocytes Percent Auto 6.8 % (3-14); Neutrophils Absolute Auto 5600 /uL (1500-7000); Platelet Count 215 X10^3/uL (150-400); Red Blood Cell Count 4.63 X10^6/uL (4.0-5.2); Red Cell Distribution Width 15.5 % (11.6-14.8); White Blood Cell Count 9.4 X10^3/uL (4.5-11.0)
[2025-03-31 19:28] LABS: Alanine Aminotransferase 63 IU/L (<35); Albumin 4.4 g/dL (3.5-5.0); Albumin Globulin Ratio 1.4 (1.0-2.8); Alkaline Phosphatase 138 U/L (38-126); Aspartate Aminotransferase 45 IU/L (14-36); BUN Creatinine Ratio 26.9 (6-22); Bilirubin Total 0.4 mg/dL (0.2-1.3); Blood Urea Nitrogen 25 mg/dL (7-17); Calcium 9.3 mg/dL (8.4-10.2); Carbon Dioxide 26 mmol/L (22-32); Chloride 105 mmol/L (98-107); Creatine Kinase 87 U/L (30-135); Estimated Glomerular Filt Rate > 60 mL/min (>60); Globulin 3.2 g/dL (1.7-4.1); Glucose 116 mg/dL (70-99); HEMOLYSIS 20 (0-50); Lipase 65 U/L (23-300); Potassium 4.2 mmol/L (3.4-5.1); Sodium 138 mmol/L (137-145); Total Protein 7.6 g/dL (6.3-8.2)
[2025-03-31 19:39] LABS: Troponin I < 0.012 ng/mL (0.01-0.034)
--- NOTE | 2025-03-31 20:15 | DI.CT.S_ITS ---
PROCEDURE: CT ANGIO CHEST PE PROTOCOL INDICATIONS: dyspnea, eval for PE TECHNIQUE: After the administration of intravenous contrast, 2 mm thick sections acquired from the pulmonary apices to the posterior costophrenic angles. 3-dimensional maximum intensity projection (MIP) coronal and sagittal reformats were then acquired through the thorax. For radiation dose reduction, the following was used: automated exposure control, adjustment of mA and/or kV according to patient size. COMPARISON: [facility], CR, XR CHEST 1V, 03/31/2025, 19:07. FINDINGS: Image quality: Diagnostic. Pulmonary arteries: Pulmonary arteries are normal in size, and demonstrate no intraluminal filling defects to suggest central pulmonary embolism. Lower Neck: No enlarged lymph nodes. Thyroid: No thyroid nodules which require sonographic follow up, per consensus guidelines. Axillae: No enlarged lymph nodes. Chest Wall: Unremarkable. Bones: Unremarkable. Lungs and Pleura: No pneumothorax or pleural effusions. No consolidation or suspicious nodules. Heart: Heart size is normal. No pericardial effusion. Thoracic Vessels: No aortic aneurysm. Mediastinum and Arleen: No enlarged lymph nodes. Esophagus: No wall thickening. Mild hiatal hernia. Upper Abdomen: Visualized upper abdomen solid organs and bowel loops appear normal. IMPRESSION: No pulmonary embolus. No acute cardiopulmonary process. Dictated by: Carmen Jacobs M.D. on 03/31/2025 at 21:27 Approved by: Carmen Jacobs M.D. on 03/31/2025 at 21:28
[2025-03-31] MEDS: methylPREDNISolone 125 MG/2 ML VIAL IV (22:09)
[2025-03-31] MEDS: ALBUTEROL/IPRATROPIUM 3 ML AMPUL INH (22:09)
== END 2025-03-31 23:20 | disposition home or self-care (01) ==
PROVIDERS: Emergency Provider Emergency Medicine; Family Provider Orthopaedic Surgery Orthopaedic Surgery of the Spine; PCP Internal Medicine
DX: M79.89 Other specified soft tissue disorders (principal); R06.02 Shortness of breath; E66.9 Obesity, unspecified; I10 Essential (primary) hypertension; Z68.43 Body mass index [BMI] 50.0-59.9, adult
CPT/HCPCS: 36415; 71045; 71275; 80053; 82550; 83690; 84484; 85025; 93005; 93971; 94640; 96374; 99284; J2919; Q9967

== ENCOUNTER 2025-04-23 14:34 | Emergency (ER) | payer MEDICARE, OTHER, SELFPAY ==
[2024-07-30 13:21] VITALS: BMI 45.5
[2025-04-23 14:38] VITALS: BP 145/63; PULSE 77; RESP 16; TEMP 36.6; O2SAT 97; BMI 54.6
--- NOTE | 2025-04-23 14:44 | DI.RAD.S_ITS ---
PROCEDURE: XR KNEE RT 3V INDICATIONS: fall and Rt knee swelling TECHNIQUE: 3 views of the knee were acquired. COMPARISON: None. FINDINGS: Bones: No fractures or dislocations. No suspicious bony lesions. Prior knee arthroplasty showing no evidence loosening or disruption. Soft tissues: No joint effusion. No suspicious soft tissue calcifications. IMPRESSION: No acute bony abnormality or significant effusion. A prior right total knee arthroplasty. Dictated by: Alan Bonner M.D. on 04/23/2025 at 15:26 Approved by: Alan Bonner M.D. on 04/23/2025 at 15:26
--- NOTE | 2025-04-23 18:55 | ED.LOWEXIN ---
HPI - Extremity Injury (Lower) General Chief Complaint: Extremity Injury, Lower Stated Complaint: Right knee pain Time Seen by Provider: 04/23/25 18:00 History of Present Illness HPI Narrative: 65-year-old female history of left knee replacement fell on April 09 tripping [place] a [place] and since then has had difficulty with pain and swelling. Patient was seen at another urgent care a few days ago whereby x-rays were negative still symptomatic today and came in to be re-evaluated. She has been taking Tylenol with no significant relief her symptoms along with wrapping the knee. Patient denies fever, chills, chest pain, shortness of breath. Other than what is stated 14 point review of system is negative. Related Data Home Medications ?Medication ?Instructions ?Recorded ?Confirmed esomeprazole magnesium 40 mg 40 mg PO QAM ##0 07/05/12 02/05/25 capsule,delayed release (Nexium) furosemide 20 mg tablet 40 mg PO QAM ##0 07/05/12 02/05/25 albuterol sulfate 90 mcg/actuation 2 puff inhalation Q4-6H PRN sob 10/09/18 02/05/25 aerosol inhaler (ProAir HFA) cyclobenzaprine 10 mg tablet 10 mg PO TID PRN Muscle Spasm 10/09/18 02/05/25 fluticasone propionate 50 2 spray intranasal DAILY 10/09/18 02/05/25 mcg/actuation nasal spray,suspension (Flonase Allergy Relief) isosorbide mononitrate 60 mg 60 mg PO QAM 10/09/18 02/05/25 tablet,extended release 24 hr levothyroxine 125 mcg tablet 175 mcg PO DAILY 10/09/18 02/05/25 (Synthroid) omeprazole 20 mg capsule,delayed 20 mg PO DAILY 10/09/18 02/05/25 release citalopram 20 mg tablet 20 mg PO QAM 03/19/23 02/05/25 colchicine 0.6 mg tablet (Colcrys) 0.6 mg PO QAM 03/19/23 02/05/25 meloxicam 7.5 mg tablet 7.5 mg PO QAM 03/19/23 02/05/25 oxybutynin chloride 5 mg tablet 5 mg PO BID 03/20/23 02/05/25 fluticasone 250 mcg-salmeterol 50 1 inh inhalation BID 04/16/23 02/05/25 mcg/dose blistr powdr for inhalation (Advair Diskus) pregabalin 75 mg capsule (Lyrica) 75 mg PO BID 04/16/23 02/05/25 Previous Rx's ?Medication ?Instructions ?Recorded acetaminophen 325 mg tablet 650 mg (2 x 325 mg) PO Q6HR PRN 10/14/18 Pain, Mild (1-3) #0 tabs hydrocodone 5 mg-acetaminophen 325 1 tab PO Q4-6H PRN pain #20 tabs 04/23/25 mg tablet Allergies Allergy/AdvReac Type Severity Reaction Status Date / Time erythromycin base Allergy Severe Hives, Verified 06/28/23 15:31 (ERYTHROMYCIN BASE) syncope Review of Systems Review of Systems ROS Unobtainable: All systems reviewed & are unremarkable except as noted in HPI and below Patient History Medical History (Updated 04/23/25 @ 19:08 by Vic Brown DO) Hypercalciuria Hyperoxaluria Hypocitraturia Calcium oxalate stones History of pyelonephritis Hx of thyroid disease Hx of rheumatoid arthritis Hx of osteoarthritis History of kidney stones Left ureteral calculus Urinary tract infection Severe anxiety Easy bruisability Arthritis Chronic neck and back pain Difficulty swallowing GERD (gastroesophageal reflux disease) Generalized edema Hyperlipidemia HTN (hypertension) Shortness of breath Pinched nerve Numbness and tingling Sleep apnea Depression Elbow fracture, right Surgical History History of lumbar spinal fusion (01/19/19) Hx of cystoscopy (03/19/23) Hx of breast biopsy History of lumbar spinal fusion (10/13/18) Hx of partial thyroidectomy History of bilateral tubal ligation Hx of hernia repair Hx of cholecystectomy History of hysterectomy S/P foot surgery, right History of arthroplasty of right knee Hx of tonsillectomy Family History Brother Cancer Diabetes mellitus Hearing impairment Kidney stones Social History marital status: number of children: 4 household members: spouse, family and children occupational status: other alcohol intake: former caffeine: Yes alcohol intake frequency: holidays/special occasions only Exam Narrative Exam Narrative: GENERAL: [89] year old patient appears stated age. Well-developed patient, in mild distress. HEAD: Atraumatic. Normocephalic. EYES: Pupils equal round and reactive. Extraocular motions intact. No scleral icterus. No injection or drainage. EXTREMITIES: Right knee mild suprapatellar effusion, with lateral joint line tenderness, patient able to extend the leg and flex the knee to 90? no redness or warmth, varus, valgus ,anterior posterior drawer Jayme and Zuly intact +2 DP +2 PT cap refill less than 2 seconds BACK: Nontender without deformity or crepitance. No flank tenderness. NEURO: AOx3. SKIN: No rash or erythema of visible areas Initial Vital Signs Initial Vital Signs: Vital Signs Temperature 98 F 04/23/25 14:38 Pulse Rate 77 04/23/25 14:38 Respiratory Rate 16 04/23/25 14:38 Blood Pressure 145/63 H 04/23/25 14:38 Pulse Oximetry 97 04/23/25 14:38 Oxygen Delivery Method Room Air 04/23/25 14:38 Course Orders Ordered: ED Orders 04/23/25 14:44 XR knee RT 3V Stat Vital Signs Vital signs: Vital Signs - 8 hr 04/23/25 14:38 Temperature 98 F Pulse Rate 77 Respiratory Rate 16 Blood Pressure 145/63 H Pulse Oximetry 97 Oxygen Delivery Method Room Air MDM - Extremity Injury (Lower) Imaging Data Extremity x-ray #1: Radiologist's Impression: [place] [address] XRay Report Signed Patient: Kathy Maguire MR#: [id number] : 1960 Acct:[id number] Age/Sex: 65 / F Date of Service: 04/23/25 Loc: ED Accession Number: [id number] Procedure: XR knee RT 3V Ordering Provider: Christine Villegas PA-C PROCEDURE: XR KNEE RT 3V INDICATIONS: fall and Rt knee swelling TECHNIQUE: 3 views of the knee were acquired. COMPARISON: None. FINDINGS: Bones: No fractures or dislocations. No suspicious bony lesions. Prior knee arthroplasty showing no evidence loosening or disruption. Soft tissues: No joint effusion. No suspicious soft tissue calcifications. IMPRESSION: No acute bony abnormality or significant effusion. A prior right total knee arthroplasty. Dictated by: Alan Bonner M.D. on 04/23/2025 at 15:26 Approved by: Alan Bonner M.D. on 04/23/2025 at 15:26 [facility] Narrative Medical decision making narrative: Vital signs, nurse triage note, medication list, previous ER visits, and all imaging studies reviewed. X-ray shows no acute bony abnormality or significant effusion prior right total knee arthroplasties. Differential diagnosis include fracture dislocation contusion sprain meniscal or ligament injury. We will refer back to other Orthopedics further care. Patient given ibuprofen [place] here and will give [place] prescription on DC home. Discharge Plan Departure Patient Disposition: Home Clinical Impression: Acute knee pain Instructions: DI for Knee Pain Activity Restrictions/Additional Instructions: Return with new or worsening symptoms. Take your medicine as directed. Follow up with either an orthopedic referral. Prescriptions: New hydrocodone-acetaminophen 5-325 mg tablet 1 tab PO Q4-6H PRN (Reason: pain) Qty: 20 0RF No Action furosemide 20 MG tablet 40 mg PO QAM Qty: 0 esomeprazole magnesium [Nexium] 40 MG capsule,delayed release(DR/EC) 40 mg PO QAM Qty: 0 meloxicam 7.5 mg tablet 7.5 mg PO QAM citalopram 20 mg tablet 20 mg PO QAM colchicine [Colcrys] 0.6 mg tablet 0.6 mg PO QAM oxybutynin chloride 5 mg tablet 5 mg PO BID Patient Comments: Take 1 tablet by mouth twice a day fluticasone propion-salmeterol [Advair Diskus] 250-50 mcg/dose blister with device 1 inh INHALATION BID pregabalin [Lyrica] 75 mg capsule 75 mg PO BID Patient Comments: Take 1 by mouth twice daily for nerve pain. May increase to 2 twice daily after 1 week if neeed levothyroxine [Synthroid] 125 mcg Tablet 175 mcg PO DAILY Patient Comments: Pt uses Synthyroid, not generic cyclobenzaprine 10 mg Tablet 10 mg PO TID PRN (Reason: Muscle Spasm) isosorbide mononitrate 60 mg Tablet Extended Release 24 Hr 60 mg PO QAM omeprazole 20 mg Capsule,Delayed Release(Dr/Ec) 20 mg PO DAILY albuterol sulfate [ProAir HFA] 90 mcg/actuation Hfa Aerosol Inhaler 2 puff INHALATION Q4-6H PRN (Reason: sob) fluticasone propionate [Flonase Allergy Relief] 50 mcg/actuation [place],Suspension 2 spray INTRANASAL DAILY acetaminophen 325 mg Tablet 650 mg PO Q6HR PRN (Reason: Pain, Mild (1-3)) Qty: 0 0RF Referrals: Catina Barriga MD [Primary Care Provider, Internal Medicine] Stand Alone Forms: Patient Portal/API
[2025-04-23] MEDS: HYDROCODONE/ACET 5/325 TABLET 1 TAB PO (19:06)
[2025-04-23] MEDS: IBUPROFEN 400 MG TABLET PO (19:07)
[2025-04-23 19:27] VITALS: BP 153/69; PULSE 82; RESP 16; O2SAT 97
== END 2025-04-23 19:34 | disposition home or self-care (01) ==
PROVIDERS: Emergency Provider Family Medicine; Family Provider Orthopaedic Surgery Orthopaedic Surgery of the Spine; PCP Internal Medicine
DX: M25.561 Pain in right knee (principal)
CPT/HCPCS: 73562; 99283

== ENCOUNTER → 2025-04-26 14:24 | Outpatient (CLI) | payer MEDICARE, OTHER, SELFPAY ==
[2024-07-30 13:21] VITALS: BMI 45.5
--- NOTE | 2025-04-26 14:29 | EKG_ITS ---
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
[2025-04-26 15:42] LABS: Add Manual Diff / Slide Review NO; Hematocrit 40.1 % (36-46); Hemoglobin 13.4 g/dL (12.0-16.0); Lymphocytes Absolute Auto 2500 /uL (1100-4500); Mean Corpuscular HGB Conc 33.5 % (30-36); Mean Corpuscular Hemoglobin 29.4 PG (26-34); Mean Corpuscular Volume 87.9 fL (80-100); Platelet Count 240 X10^3/uL (150-400)
[2025-04-26 15:50] LABS: Hemoglobin A1C% w Est Avg Glu 5.4 % (4.0-6.0)
[2025-04-26 16:06] LABS: Albumin 3.9 g/dL (3.5-5.0); Blood Urea Nitrogen 17 mg/dL (7-17); Calcium 9.4 mg/dL (8.4-10.2); Carbon Dioxide 26 mmol/L (22-32); Chloride 101 mmol/L (98-107); Estimated Glomerular Filt Rate > 60 mL/min (>60); Glucose 88 mg/dL (70-99); HEMOLYSIS < 15 (0-50); Potassium 4.2 mmol/L (3.4-5.1); Sodium 137 mmol/L (137-145)
[2025-04-26 16:11] LABS: Prealbumin 19.3 mg/dL (17.6-36.0)
[2025-04-26 16:20] LABS: Vitamin D 25 Hydroxy (D3) 48.0 ng/mL (30.0-100.0)
== END ==
PROVIDERS: Family Provider Orthopaedic Surgery Orthopaedic Surgery of the Spine; PCP Internal Medicine; Referring Provider Physician Assistant Surgical; Visit Provider Physician Assistant Surgical
DX: Z01.818 Encounter for other preprocedural examination (principal); E11.9 Type 2 diabetes mellitus without complications; E55.9 Vitamin D deficiency, unspecified; M25.561 Pain in right knee; Z01.812 Encounter for preprocedural laboratory examination; Z96.651 Presence of right artificial knee joint
CPT/HCPCS: 36415; 80048; 82040; 82306; 83036; 84134; 85025; 85651; 86140; 93005